=== PATIENT | male | born 1965 | race Caucasian/White ===

== ENCOUNTER 2019-07-12 13:52 | Emergency (ER) | payer OTHER, SELFPAY ==
--- NOTE | ~2019-07-12 | CT_ITS ---
EXAMINATION: CT abdomen pelvis w con EXAM DATE: 07/12/2019 15:04 INDICATION: Left-sided abdominal pain, diarrhea. TECHNIQUE: Spiral CT of the abdomen and pelvis was performed following intravenous injection of 100 m L Omnipaque 350. Axial, coronal and sagittal images were reviewed. The dose-length product (DLP) fo r this examination was 779.20 mGy-cm. The exposure was tailored according to patient size (auto mA e xposure control), and iterative reconstruction (ASIR) was used as additional dose reduction technique . Comparison is made to prior examination from 04/07/2018. FINDINGS: There is hepatic steatosis without suspicious focal lesion identified. Spleen, adrenal glan ds, pancreas are unremarkable. Gallbladder is unremarkable. No biliary obstruction. Portal and spl enic veins are patent. Kidneys enhance symmetrically. There is no hydronephrosis. There is a 2.5 mm right superior calyceal stone. The prostate is unremarkable. The bladder is unremarkable. There i s no retroperitoneal or pelvic lymphadenopathy. The appendix is normal. The stomach and small bowel are unremarkable. Small amount of colonic dheeraj nt. No free intraperitoneal gas. The heart is normal in size. There are no pericardial or pleura l effusions. The lung bases are unremarkable. There are no osteoblastic or osteolytic lesions ident ified. There is an old right 11th rib fracture posteriorly. IMPRESSION: 1. No acute intra-abdominal findings. 2. Hepatic steatosis. Reviewed, dictated and finalized at location A.
[2019-07-12 13:59] VITALS: BP 174/92; PULSE 80; RESP 18; TEMP 37; O2SAT 100
--- NOTE | 2019-07-12 14:07 | ED.ABDPAIN ---
HPI - Abdominal Pain General Chief Complaint: Abdominal Pain Stated Complaint: ABD PAIN/DIARRHEA Time Seen by Provider: 07/12/19 14:02 Source: patient and RN notes reviewed Mode of arrival: ambulatory Limitations: no limitations History of Present Illness HPI narrative: A 53 y/o male presents to the ED with worsening, 7/10, diffuse ABD pain for the past 3 days. He states that his PCP placed him on Empagliflozin 10 mg and Metformin 3 days ago and ever since he developed severe diffuse ABD pain. He reports associated nausea, diarrhea, generalized tremors, lt upper gum pain, and lt nostril pain. He denies any recent travel or sick contacts. He also denies any cough, fevers, SOB, CP, vomiting, dysuria, hematuria, or rash. MD elicited complaint: abdominal pain Pertinent past history: none Onset (ago): day(s) (3) Pain Consistency: other (worsening) Location: diffuse Pain scale (0-10): 7 Associated symptoms: nausea, diarrhea and other (generalized tremors, lt upper gum and lt nostril pain) Related Data Home Medications Medication Instructions Recorded Confirmed empagliflozin [Jardiance] mg 07/12/19 losartan 50 mg PO DAILY 07/12/19 metformin mg 07/12/19 Allergies Allergy/AdvReac Type Severity Reaction Status Date / Time atenolol Allergy Unknown tremor Verified 07/12/19 14:26 azithromycin Allergy Unknown Nausea Verified 07/12/19 14:26 cephalexin Allergy Unknown Skin Verified 07/12/19 14:26 Reaction doxycycline Allergy Unknown nausea, Verified 07/12/19 14:26 vomiting erythromycin base Allergy Unknown Unknown Verified 07/12/19 14:26 lisinopril Allergy Unknown cough Verified 07/12/19 14:26 naproxen Allergy Unknown upset Verified 07/12/19 14:26 stomach Review of Systems Review of Systems: Narrative: CONSTITUTIONAL: Denies fever. ENT: Reports lt upper gum and lt nostril pain. CARDIOVASCULAR: Denies chest pain. RESPIRATORY: Denies cough or dyspnea. GASTROINTESTINAL: Denies vomiting. Reports diffuse ABD pain, nausea, and diarrhea. GENITOURINARY: Denies dysuria or hematuria. SKIN: Denies rash. NEURO: Reports generalized tremors. All systems reviewed & are unremarkable except as noted in HPI and below PMFSH Past Medical History Medical History DM (diabetes mellitus) GERD (gastroesophageal reflux disease) H/O: HTN (hypertension) Hypercholesteremia Surgical History Surgical History Surgical history unknown Family History Family History Father Diabetes mellitus Family history of glaucoma Hypertension Grandparent Diabetes mellitus Hypertension Mother Diabetes mellitus Family history of glaucoma Cerebrovascular accident Social History Social History Smoking status: Current every day smoker Alcohol intake: never Gender identity (if verbalized by the patient): Male Exam Narrative: Exam Narrative: GENERAL: Awake, alert, conversant, slightly tremulous. HEAD: Normocephalic, atraumatic. EYES: EOMI, conjunctiva clear ENT: Nares patent. Mucous membranes moist. Vesicle in left nostril. NECK: Full range of motion CHEST: No respiratory distress, speaking in full sentences, no tachypnea HEART: Regular rate ABDOMEN: Non distended, non tender, no guarding, nonrigid EXTREMITIES: Normal range of motion. No edema. SKIN: Warm, dry, no rash. NEURO: No focal deficits. Alert and oriented x3. Course Course Emergency Course: Patient presented for shakiness, nausea, diarrhea after starting metformin and new diabetes medication. Patient is well-appearing with stable vital signs at the time of assessment. ABCs are intact and vital signs are stable. Physical exam is relatively benign. Patient is somewhat tremulous, however this does stop when speaking with him. Laboratory results are reassuring. No acute kidney injury or signs of loree
--- NOTE | 2019-07-12 14:17 | ECG_ITS ---
Measurements Intervals [place] Rate: 73 P: 40 VA: 163 QRS: 5 QRSD: 114 T: 26 QT: 365 QTc: 404 Interpretive Statements SINUS RHYTHM INTRAVENTRICULAR CONDUCTION DELAY VOLTAGE CRITERIA FOR LVH BORDERLINE ECG Electronically Signed On 07-12-2019 14:31:00 CDT by Carson Cárdenas D.O.
[2019-07-12] MEDS: ONDANSETRON INJ 4 MG/2 ML VIAL IV PUSH (14:26)
[2019-07-12] MEDS: SODIUM CHLORIDE 0.9% IV 1,000 ML 999 ML IV CONT (14:27)
--- NOTE | 2019-07-12 14:29 | PC.NURSE ---
bs 114
[2019-07-12 14:32] LABS: Glucose Point of Care 114 (65-105)
[2019-07-12 14:33] VITALS: BP 156/96; PULSE 92; RESP 21; O2SAT 97
[2019-07-12 14:40] LABS: Alveolar/Arterial O2 Gradient 3.7 mmHg; Base Excess ABG -2.8 mEq/l (+/-2.0); Carboxyhemoglobin 4.3 % THb (0-2.0); Fractional Inspired Oxygen 21 %; Methemoglobin ABG 0.3 %THb (0-1.5); Oxygen Content ABG 19.1 %vol (16.0-22.0); Oxygen Saturation ABG 97.4 % (95.0-100.0); Oxyhemoglobin 92.6 % THb (90.0-100.0); PCO2 ABG 38.8 mmHg (35.0-45.0); PO2 ABG 99.6 mmHg (80.0-100.0); PO2 FiO2 Ratio Arterial Blood 4.74 %; Reduced Hemoglobin 2.8 %THb (0-5.0); Total Hemoglobin 14.6 g/dL (12.0-18.0); pH ABG 7.372 (7.350-7.450)
[2019-07-12 14:45] LABS: Basophils Percent Auto 0.4 % (0.2-1.2); Eosinophils Percent Auto 0.5 % (0-4.4); Hematocrit 41.9 % (42.0-52.0); Immature Granulocyte Absolute 0.02 K/mm3 (0.00-0.031); Immature Granulocyte Percent A 0.3 % (0-0.5); Immature Platelet Fraction Pct 24.3 % (0.9-11.2); Lymphocytes Absolute Auto 1.59 K/mm3 (0.9-3.2); Lymphocytes Percent Auto 20.8 % (18.3-44.2); Mean Corpuscular HGB Conc 33.4 g/dl (32-36); Mean Corpuscular Hemoglobin 31.7 pg (26-34); Monocytes Absolute Auto 0.6 K/mm3 (0.1-0.6); Monocytes Percent Auto 8.1 % (2.6-8.5); Neutrophils Absolute Auto 5.4 K/mm3 (1.3-6.7); Neutrophils Percent Auto 69.9 % (45.5-73.1); Platelet Count Result 77 k/mm3 (150-375); Red Blood Count 4.41 M/mm3 (4.6-6.20); Red Cell Distribution Width 14.8 % (11.5-14.5); White Blood Count 7.7 K/mm3 (4.5-10.0)
[2019-07-12 14:47] LABS: Add Urine Microscopic? YES; Appearance Urine Clear (Clear); Bilirubin Urine Negative (Negative); Blood Urine Negative (Negative); Color Urine Yellow (Yellow); Glucose Urine UA 3+ mg/dL (Negative); Ketones Urine Negative (Negative); Leukocyte Esterase Ur Negative LEU/UL (Negative); Nitrate Urine Negative (Negative); Protein Urine Negative (Negative); RBC Urine 0-2 /hpf (0-2); Specific Grav Ur 1.023 (1.001-1.035); Urobilinogen Urine Negative mg/dL (<2.0); WBC Urine 0-3 /hpf
[2019-07-12 14:50] LABS: Device ROOM AIR; Modified Allen's Test Pass; Site Drawn RIGHT RADIAL
[2019-07-12 14:56] LABS: INR 1.1; Prothrombin Time 13.7 Seconds (11.1-14.7)
[2019-07-12 14:57] LABS: Alanine Aminotransferase 41 U/L (4-50); Albumin Level 4.4 g/dL (3.5-5.1); Alkaline Phosphatase 83 U/L (38-126); Aspartate Amino Transferase 49 U/L (17-59); Bilirubin,Total 1.6 mg/dL (0.2-1.3); Blood Urea Nitrogen 13 mg/dL (9-20); Calcium 9.3 mg/dL (8.4-10.2); Carbon Dioxide 25 mmol/L (22-30); Chloride 103 mmol/L (98-107); Estimated CRCL calculation 117 ml/min; Estimated Glomerular Filt Rate > 60; Glucose 113 mg/dL (75-110); Partial Thromboplastin Time 31.5 SECONDS (22.3-36.8); Sodium 139 mmol/L (137-145)
[2019-07-12 14:59] LABS: Estimated CRCL calculation 105 ml/min; Estimated Glomerular Filt Rate > 60
[2019-07-12 15:00] LABS: Magnesium 1.8 mg/dL (1.6-2.3)
[2019-07-12 15:01] LABS: Potassium 4.3 mmol/L (3.4-5.0)
[2019-07-12 15:02] LABS: Beta-Hydroxybutyrate/Acetoacetate 0.24 mmol/L (0.02-0.27)
[2019-07-12 15:06] LABS: Troponin I < 0.012 ng/mL (0.000-0.034)
[2019-07-12 15:52] VITALS: BP 158/101; PULSE 79; RESP 19; O2SAT 100
[2019-07-12 16:45] VITALS: BP 148/72; PULSE 78; RESP 20; O2SAT 99
== END 2019-07-12 16:48 | disposition home or self-care (01) ==
PROVIDERS: Emergency Provider Emergency Medicine
DX: B00.9 Herpesviral infection, unspecified (principal); R10.9 Unspecified abdominal pain; R11.0 Nausea; R19.7 Diarrhea, unspecified; T38.3X5A Adverse effect of insulin and oral hypoglycemic [antidiabetic] drugs, initial encounter; K21.9 Gastro-esophageal reflux disease without esophagitis; E11.9 Type 2 diabetes mellitus without complications; I10 Essential (primary) hypertension; E78.00 Pure hypercholesterolemia, unspecified; F17.200 Nicotine dependence, unspecified, uncomplicated; K76.0 Fatty (change of) liver, not elsewhere classified
CPT/HCPCS: 36415; 36600; 74177; 80053; 81001; 82010; 82375; 82805; 82948; 83050; 83735; 84100; 84484; 85025; 85055; 85610; 85730; 93005; 96361; 96374; 99284; J2405; J7030; Q9967

== ENCOUNTER 2019-08-10 06:51 | Outpatient (CLI) | payer OTHER, SELFPAY ==
--- NOTE | ~2019-08-10 | US_ITS ---
US right upper quadrant DATE: 08/10/2019 07:43 INDICATION: Elevated liver enzymes TECHNIQUE: Real-time imaging, pancreas, gallbladder areas. COMPARISON: CTA chest pulmonary/abdomen/pelvis FINDINGS: There is no evidence of gallstones, gallbladder wall thickening, abnormal pericholecystic f luid collection. Negative sonographic Devries's sign. The common bile duct measures 4.6 mm, normal. The pancreas is largely obscured by bowel gas. Normal hepatic portal venous flow direction. No hepati c space-occupying mass lesion is evident. IMPRESSION: Pancreas is obscured; otherwise unremarkable examination Reviewed, dictated and finalized at Location [facility]. Reviewed, dictated and finalized at location A.
== END 2019-08-10 06:52 | disposition home or self-care (01) ==
LOC: ANHIMG 06:55
PROVIDERS: PCP Family Medicine; Visit Provider Family Medicine
DX: R74.8 Abnormal levels of other serum enzymes (principal)
CPT/HCPCS: 76705

== ENCOUNTER 2021-04-12 07:12 | Emergency (ER) | payer OTHER, SELFPAY ==
--- NOTE | ~2021-04-12 | XR_ITS ---
EXAMINATION: XR chest 1V portable DATE: 04/12/2021 08:10 INDICATION: Cough. TECHNIQUE: A single frontal view of the chest was obtained. COMPARISON: Chest 2 views 03/24/2019, CT abdomen and pelvis 07/12/2019 FINDINGS: There is no pneumonia, pleural effusion, or pneumothorax. The heart size is normal. Calcifi ed mediastinal lymph nodes are consistent with old granulomatous disease. IMPRESSION: 1. No acute cardiopulmonary disease. Reviewed, dictated and finalized at location A. [employer]ING [employer]
[2021-04-12 07:41] VITALS: BP 137/94; PULSE 82; RESP 16; TEMP 37; O2SAT 98
--- NOTE | 2021-04-12 08:14 | ED.GENADULT ---
HPI - General Adult General Chief complaint: Unspecified Stated complaint: chills, clogged up Time Seen by Provider: 04/12/21 07:53 Source: RN notes reviewed History of Present Illness HPI narrative: Patient presents emergency department from home for not feeling well. Patient states that symptoms began approximately 3 days ago and worsened yesterday states that he has had body aches, rhinorrhea with nasal congestion, sore throat and a cough this been nonproductive. He denies any measured fevers or chills chest pain shortness of breath abdominal pain nausea or vomiting. Patient states he has had the COVID-19 vaccinations. States has been using [employer] VapoRub at home Related Data Home Medications Medication Instructions Recorded Confirmed empagliflozin [Jardiance] 10 mg PO DAILY 04/12/21 gabapentin 300 mg PO BID 04/12/21 hydrocodone-acetaminophen 1 tablet PO Q4H PRN 04/12/21 losartan 25 mg PO DAILY 04/12/21 montelukast [Singulair] 10 mg PO DAILY 04/12/21 Allergies Allergy/AdvReac Type Severity Reaction Status Date / Time atenolol Allergy Unknown tremor Verified 07/12/19 14:26 azithromycin Allergy Unknown Nausea Verified 07/12/19 14:26 cephalexin Allergy Unknown Skin Verified 07/12/19 14:26 Reaction doxycycline Allergy Unknown nausea, Verified 07/12/19 14:26 vomiting erythromycin base Allergy Unknown Unknown Verified 07/12/19 14:26 lisinopril Allergy Unknown cough Verified 07/12/19 14:26 naproxen Allergy Unknown upset Verified 07/12/19 14:26 stomach Review of Systems Review of Systems: Gen.: Denies fevers or chills ENT: See HPI Respiratory: Denies shortness of breath reports CV: Denies chest pain GI: Denies abdominal pain nausea, emesis or diarrhea Musculoskeletal: Denies back pain or muscle pain Neuro: Denies numbness, tingling, weakness or focal weakness Skin: Denies rash Except as documented, all other systems reviewed and negative [facility] Past Medical History Medical History (Updated 04/12/21 @ 09:31 by Sergei Hart DO) DM (diabetes mellitus) GERD (gastroesophageal reflux disease) H/O: HTN (hypertension) Hypercholesteremia Surgical History Surgical History Surgical history unknown Family History Family History Father Diabetes mellitus Family history of glaucoma Hypertension Grandparent Diabetes mellitus Hypertension Mother Diabetes mellitus Family history of glaucoma Cerebrovascular accident Social History Social History Smoking status: Current every day smoker Alcohol intake: never Gender identity (if verbalized by the patient): Male Exam Narrative: APPEARANCE: No acute distress, nontoxic, resting in bed EYES: EOMI HEENT: Normocephalic, atraumatic, TMs clear bilaterally bilateral turbinates boggy, mild erythema with no exudate of posterior pharynx RESPIRATORY: No respiratory distress Clear to auscultation bilaterally with no rhonchi wheezing or rales. CARDIOVASCULAR: Regular rate and rhythm without murmurs rubs or gallops. ABDOMINAL: Soft, nontender, nondistended, no rebound or guarding MUSCULOSKELETAl: Moves all extremities. No clubbing, cyanosis or edema. NEURO: Awake and alert. Following commands, speech normal, no focal deficits SKIN:: Warm, dry. No rashes lesions or abrasions PSYCHIATRIC: Normal affect/mood, Course Course Emergency Course: Discussed with patient results of workup and diagnosis. Discussed need for follow-up with primary care, proper use of medication, and reasons to return to the emergency department. Patient understands and agrees to current treatment plan. Discussed with patient Covid swab obtained and need for self-isolation until results return Vital Signs Vital signs: Vital Signs Temperature 98.6 F 04/12/21 07:41 Pulse Rate 82 04/12/21 07:41 Respiratory Rate 16
[2021-04-12] MEDS: ACETAMINOPHEN 500 MG TABLET 1000 MG PO (08:32)
[2021-04-12 16:52] LABS: SARS-CoV-2 RNA PCR Positive
== END 2021-04-12 10:35 | disposition home or self-care (01) ==
PROVIDERS: Emergency Provider Emergency Medicine; PCP Family Medicine
DX: U07.1 COVID-19 (principal); E11.9 Type 2 diabetes mellitus without complications; I10 Essential (primary) hypertension; F17.200 Nicotine dependence, unspecified, uncomplicated; Z79.891 Long term (current) use of opiate analgesic
CPT/HCPCS: 71045; 87804; 99283; A9270; C9803; U0003; U0005

== ENCOUNTER 2022-05-30 08:03 | Emergency (ER) | payer OTHER, SELFPAY ==
--- NOTE | 2022-05-30 08:05 | ED.CHESTPAIN ---
HPI - Chest Pain General Chief Complaint: Upper Respiratory Infection Stated Complaint: pain on left of chest Time Seen by Provider: 05/30/22 08:05 Source: patient Mode of arrival: ambulatory Limitations: no limitations History of Present Illness HPI narrative: Mr. Stafford is a 56-year-old male patient presenting to clinic today with complaints of mid sternal/left-sided chest pain since (2 days). He reports he feels as though his sinuses are clogged up any has had a nose bleed as well. His blood pressure is 160 over 79 in the clinic today. He denies any shortness of breath but rates his chest discomfort a 4/10 stating that the pain is sharp and constant. Pain does get worse with movement of the left arm but there is no radiation down the left arm. He denies having a cough. He is a 1 pack per day times 13 year smoker. History of high blood pressure, high cholesterol, GERD, and diabetes. No cardiac history per patient Related Data Home Medications Medication Instructions Recorded Confirmed empagliflozin 10 mg tablet 10 mg PO DAILY 04/12/21 (Jardiance) hydrocodone 5 mg-acetaminophen 325 1 tablet PO Q4H PRN Pain (Scale 04/12/21 mg tablet Score 4-6) losartan 25 mg tablet 25 mg PO DAILY 04/12/21 Allergies Allergy/AdvReac Type Severity Reaction Status Date / Time atenolol Allergy Unknown tremor Verified 07/12/19 14:26 azithromycin Allergy Unknown Nausea Verified 07/12/19 14:26 cephalexin Allergy Unknown Skin Verified 07/12/19 14:26 Reaction doxycycline Allergy Unknown nausea, Verified 07/12/19 14:26 vomiting erythromycin base Allergy Unknown Unknown Verified 07/12/19 14:26 lisinopril Allergy Unknown cough Verified 07/12/19 14:26 naproxen Allergy Unknown upset Verified 07/12/19 14:26 stomach DEZ Inhibitors Allergy Unknown Verified 05/30/22 08:36 acetaminophen Allergy Unknown Verified 05/30/22 08:36 [From Tylenol-Codeine #3] amoxicillin Allergy Unknown Verified 05/30/22 08:36 baclofen Allergy Unknown Verified 05/30/22 08:36 codeine Allergy Unknown Verified 05/30/22 08:36 [From Tylenol-Codeine #3] diclofenac Allergy Unknown Verified 05/30/22 08:36 etodolac Allergy Unknown Verified 05/30/22 08:36 gabapentin Allergy Unknown Verified 05/30/22 08:36 ibuprofen Allergy Unknown Verified 05/30/22 08:36 meloxicam Allergy Unknown Verified 05/30/22 08:36 metformin Allergy Unknown Verified 05/30/22 08:36 methylprednisolone Allergy Unknown Verified 05/30/22 08:36 metoprolol Allergy Unknown Verified 05/30/22 08:36 metronidazole Allergy Unknown Verified 05/30/22 08:36 nabumetone Allergy Unknown Verified 05/30/22 08:36 omeprazole Allergy Unknown Verified 05/30/22 08:36 prednisone Allergy Unknown Verified 05/30/22 08:36 tramadol Allergy Unknown Verified 05/30/22 08:36 Review of Systems Review of Systems: Pertinent positives per HPI. Patient denies any fever, chills, rash, headache, visual changes, dizziness, cough, runny nose, sore throat, shortness of breath,palpitations, nausea, vomiting, diarrhea, constipation, abdominal pain, or any urinary issues. PMFSH Past Medical History Medical History (Updated 05/30/22 @ 08:41 by Angel Cuellar APRN) DM (diabetes mellitus) GERD (gastroesophageal reflux disease) H/O: HTN (hypertension) Hypercholesteremia Surgical History Surgical History Surgical history unknown Family History Family History Father Diabetes mellitus Family history of glaucoma Hypertension Grandparent Diabetes mellitus Hypertension Mother Diabetes mellitus Family history of glaucoma Cerebrovascular accident Social History Social History Smoking status: Current every day smoker Alcohol intake: never Gender identity (if verbalized by the patient): Male Comments At the time of my signature, I rev
[2022-05-30 08:15] VITALS: BP 160/79; PULSE 98; RESP 18; TEMP 36.8; O2SAT 100
--- NOTE | 2022-05-30 08:16 | ECG_ITS ---
Measurements Intervals [place] Rate: 67 P: 53 OR: 172 QRS: 4 QRSD: 109 T: 31 QT: 374 QTc: 396 Interpretive Statements SINUS RHYTHM NORMAL ECG COMPARED TO ECG 07/12/2019 14:29:37 NO SIGNIFICANT CHANGES Electronically Signed On 05-30-2022 16:44:28 ANGLE SHEARER by Mike Nicole M.D.
== END 2022-05-30 08:40 | disposition short-term general hospital (02) ==
PROVIDERS: Emergency Provider Nurse Practitioner Family; PCP Family Medicine
DX: R07.9 Chest pain, unspecified (principal); E78.00 Pure hypercholesterolemia, unspecified; I10 Essential (primary) hypertension; K21.9 Gastro-esophageal reflux disease without esophagitis; E11.9 Type 2 diabetes mellitus without complications
CPT/HCPCS: 93005; 99213; G0463

== ENCOUNTER 2022-05-30 08:50 | Emergency (ER) | payer OTHER, SELFPAY ==
--- NOTE | ~2022-05-30 | XR_ITS ---
EXAMINATION: XR chest 2V 05/30/2022 09:15 INDICATION: Chest pain PROCEDURE: 2 view chest COMPARISON: Comparison to multiple prior studies sequentially, with oldest reviewed study dated 03/13. FINDINGS: The lungs are clear. The cardiomediastinal silhouette is within normal limits. There are no pleural effusions. There is no pneumothorax suspected. IMPRESSION: 1: NO ACUTE CARDIOPULMONARY DISEASE. Reviewed, dictated and finalized at location A. CHBOARD OPERATOR RECEPTIONIST
--- NOTE | ~2022-05-30 | CT_ITS ---
EXAMINATION: CT abdomen pelvis w con DATE: 05/30/2022 11:43 INDICATION: Epigastric abdominal pain. Elevated lipase. TECHNIQUE: Computed tomography (CT) of the abdomen and pelvis was performed with 100 cc Omnipaque 350 intravenous contrast. The dose-length product was 550.71 mGy-cm. Automated exposure control and iter ative reconstruction technique were employed. COMPARISON: CT dated 07/12/2019 FINDINGS: Lung bases are unremarkable. Heart size normal. No significant pleural or pericardial effus ion. No significant vascular abnormality. No lymphadenopathy. There is fatty infiltration of the liver. There is a small subcentimeter hypodensity of the left hepa tic lobe, too small to characterize, although likely benign. Gallbladder is distended. Spleen is enla rged. The adrenal glands, pancreas and left kidney are unremarkable. There is a 2 mm nonobstructing r ight renal stone. Small fat-containing umbilical hernia. No abnormal pelvic masses or fluid collectio ns. Colonic diverticulosis without evidence for diverticulitis. Normal appendix. Mild-moderate lumbar spondylosis. IMPRESSION: 1. No acute abdominal abnormality. 2: Splenomegaly. 3: Fatty infiltration of the liver. 4: Nonobstructing right nephrolithiasis. Reviewed, dictated and finalized at location A. IOLOGY TECHNICIAN
--- NOTE | 2022-05-30 08:55 | ECG_ITS ---
Measurements Intervals [place] Rate: 62 P: 52 MA: 170 QRS: 0 QRSD: 107 T: 22 QT: 371 QTc: 378 Interpretive Statements SINUS RHYTHM MINIMAL VOLTAGE CRITERIA FOR LVH, CONSIDER NORMAL VARIANT BORDERLINE ECG COMPARED TO ECG 07/12/2019 14:29:37 NO SIGNIFICANT CHANGES Electronically Signed On 05-30-2022 16:44:56 WOOL HAT FLANGER by Mike Nicole M.D.
[2022-05-30 08:56] VITALS: BP 154/80; PULSE 72; RESP 17; TEMP 36.8; O2SAT 99
--- NOTE | 2022-05-30 09:08 | ED.CHESTPAIN ---
HPI - Chest Pain General Chief Complaint: Chest Pain Stated Complaint: Chest Pain x1 week Time Seen by Provider: 05/30/22 08:58 Source: patient Mode of arrival: ambulatory Limitations: no limitations History of Present Illness HPI narrative: Patient is a 56-year-old male who presents to the ED with report of left sided chest wall pain. Patient reports having pain in his left anterior lateral chest wall/rib cage for the past 1 week. He states over the last couple days it has become worse, which prompted his presentation. He has tried taking Tylenol for the pain. Patient also reports having congestion and rhinorrhea for the past 2-1/2 weeks, denies cough, fever, chills, nausea, vomiting, abdominal pain, difficulty breathing, pain with deep breaths, lower extremity pain or swelling. Related Data Home Medications Medication Instructions Recorded Confirmed empagliflozin 10 mg tablet 10 mg PO DAILY 04/12/21 05/30/22 (Jardiance) hydrocodone 5 mg-acetaminophen 325 1 tablet PO Q4H PRN Pain (Scale 04/12/21 05/30/22 mg tablet Score 4-6) losartan 25 mg tablet 25 mg PO DAILY 04/12/21 05/30/22 Allergies Allergy/AdvReac Type Severity Reaction Status Date / Time atenolol Allergy Unknown tremor Verified 07/12/19 14:26 azithromycin Allergy Unknown Nausea Verified 07/12/19 14:26 cephalexin Allergy Unknown Skin Verified 07/12/19 14:26 Reaction doxycycline Allergy Unknown nausea, Verified 07/12/19 14:26 vomiting erythromycin base Allergy Unknown Unknown Verified 07/12/19 14:26 lisinopril Allergy Unknown cough Verified 07/12/19 14:26 naproxen Allergy Unknown upset Verified 07/12/19 14:26 stomach DEZ Inhibitors Allergy Unknown Verified 05/30/22 08:36 acetaminophen Allergy Unknown Verified 05/30/22 08:36 [From Tylenol-Codeine #3] amoxicillin Allergy Unknown Verified 05/30/22 08:36 baclofen Allergy Unknown Verified 05/30/22 08:36 codeine Allergy Unknown Verified 05/30/22 08:36 [From Tylenol-Codeine #3] diclofenac Allergy Unknown Verified 05/30/22 08:36 etodolac Allergy Unknown Verified 05/30/22 08:36 gabapentin Allergy Unknown Verified 05/30/22 08:36 ibuprofen Allergy Unknown Verified 05/30/22 08:36 meloxicam Allergy Unknown Verified 05/30/22 08:36 metformin Allergy Unknown Verified 05/30/22 08:36 methylprednisolone Allergy Unknown Verified 05/30/22 08:36 metoprolol Allergy Unknown Verified 05/30/22 08:36 metronidazole Allergy Unknown Verified 05/30/22 08:36 nabumetone Allergy Unknown Verified 05/30/22 08:36 omeprazole Allergy Unknown Verified 05/30/22 08:36 prednisone Allergy Unknown Verified 05/30/22 08:36 tramadol Allergy Unknown Verified 05/30/22 08:36 Review of Systems Review of Systems: CONSTITUTIONAL: Denies fever, chills, or sweats. ENT: See HPI. CARDIOVASCULAR: See HPI. RESPIRATORY: Denies pleuritic pain, cough, or dyspnea. GASTROINTESTINAL: Denies abdominal pain, nausea, vomiting. GENITOURINARY: Denies dysuria or hematuria. MUSCULOSKELETAL: See HPI. All systems reviewed & are unremarkable except as noted in HPI and below PMFSH Past Medical History Medical History DM (diabetes mellitus) GERD (gastroesophageal reflux disease) H/O: HTN (hypertension) Hypercholesteremia Surgical History Surgical History History of surgery on lower extremity Family History Family History Father Diabetes mellitus Family history of glaucoma Hypertension Grandparent Diabetes mellitus Hypertension Mother Diabetes mellitus Family history of glaucoma Cerebrovascular accident Social History Social History Smoking status: Current every day smoker Alcohol intake: never Gender identity (if verbalized by the patient): Male Exam Narrative: GENE
[2022-05-30 09:15] LABS: Basophils Percent Auto 0.5 % (0.2-1.2); Eosinophils Absolute Auto 0.1 K/mm3 (0-0.3); Eosinophils Percent Auto 1.3 % (0-4.4); Hematocrit 41.9 % (42.0-52.0); Hemoglobin 14.3 g/dL (14.0-18.0); Immature Granulocyte Absolute 0.01 K/mm3 (0.00-0.031); Immature Granulocyte Percent A 0.2 % (0-0.5); Lymphocytes Absolute Auto 1.39 K/mm3 (0.9-3.2); Lymphocytes Percent Auto 25.4 % (18.3-44.2); Mean Corpuscular HGB Conc 34.1 g/dl (32-36); Mean Corpuscular Hemoglobin 33.3 pg (26-34); Mean Corpuscular Volume 97.7 fl (80-100); Mean Platelet Volume 13.6 fl (7.4-10.4); Monocytes Absolute Auto 0.5 K/mm3 (0.1-0.6); Monocytes Percent Auto 9.3 % (2.6-8.5); Neutrophils Absolute Auto 3.5 K/mm3 (1.3-6.7); Neutrophils Percent Auto 63.3 % (45.5-73.1); Platelet Count Result 83 k/mm3 (150-375); Red Blood Count 4.29 M/mm3 (4.6-6.20); Red Cell Distribution Width 16.5 % (11.5-14.5); White Blood Count 5.5 K/mm3 (4.5-10.0)
[2022-05-30 09:25] LABS: Alanine Aminotransferase 49 U/L (6-50); Albumin Level 4.9 g/dL (3.5-5.1); Alkaline Phosphatase 57 U/L (38-126); Anion Gap 6 mmol/L (8-16); Aspartate Amino Transferase 48 U/L (17-59); Bilirubin,Total 1.6 mg/dL (0.2-1.3); Blood Urea Nitrogen 13 mg/dL (9-20); Calcium 9.6 mg/dL (8.4-10.2); Carbon Dioxide 28 mmol/L (22-30); Chloride 102 mmol/L (98-107); Estimated CRCL calculation 113 ml/min; Estimated Glomerular Filt Rate > 60; Glucose 108 mg/dL (65-110); Lipase 403 U/L (23-300); Potassium 3.6 mmol/L (3.4-5.0); Sodium 136 mmol/L (137-145)
[2022-05-30 09:27] LABS: INR 1.1; Prothrombin Time 13.6 Seconds (11.1-14.7)
[2022-05-30 09:28] LABS: Partial Thromboplastin Time 30.7 SECONDS (22.3-36.8)
[2022-05-30 09:29] VITALS: O2SAT 99
[2022-05-30 09:35] LABS: Troponin I < 0.012 ng/mL (0.000-0.034)
[2022-05-30 10:18] LABS: Appearance Urine Clear (Clear); Bilirubin Urine Negative (Negative); Blood Urine Negative (Negative); Color Urine Yellow (Yellow); Glucose Urine UA 2+ mg/dL (Negative); Ketones Urine Negative (Negative); Leukocyte Esterase Ur Negative LEU/UL (Negative); Nitrate Urine Negative (Negative); Protein Urine Negative (Negative); Urobilinogen Urine 0.2 mg/dL (<2.0); pH Urine 5.5 (5.0-9.0)
[2022-05-30 10:25] LABS: WBC Urine 0-3 /hpf
[2022-05-30 10:26] LABS: Add Urine Microscopic? YES
[2022-05-30 10:39] LABS: Influenza A QL RT-PCR Negative (Negative); Influenza B QL RT-PCR Negative (Negative); SARS-CoV-2 RNA PCR Negative
[2022-05-30 12:32] VITALS: BP 135/83; PULSE 68; RESP 18; TEMP 36.4; O2SAT 98
== END 2022-05-30 12:47 | disposition home or self-care (01) ==
PROVIDERS: Emergency Medicine; Emergency Provider Physician Assistant; PCP Family Medicine
DX: R07.89 Other chest pain (principal); Z20.822 Contact with and (suspected) exposure to COVID-19; E11.9 Type 2 diabetes mellitus without complications; I10 Essential (primary) hypertension; E78.00 Pure hypercholesterolemia, unspecified; K21.9 Gastro-esophageal reflux disease without esophagitis; F17.200 Nicotine dependence, unspecified, uncomplicated; Z79.84 Long term (current) use of oral hypoglycemic drugs; R16.1 Splenomegaly, not elsewhere classified; N20.0 Calculus of kidney; R94.31 Abnormal electrocardiogram [ECG] [EKG]
CPT/HCPCS: 36415; 71046; 74177; 80053; 81001; 83690; 84484; 85025; 85055; 85610; 85730; 87636; 93005; 99284; Q9967

== ENCOUNTER 2022-10-11 17:09 | Emergency (ER) | payer OTHER, SELFPAY ==
--- NOTE | ~2022-10-11 | XR_ITS ---
EXAMINATION: XR chest 2V DATE: 10/11/2022 17:52 INDICATION: Cough TECHNIQUE: PA and lateral views of the chest were obtained. COMPARISON: Chest radiograph dated 05/30/2022 FINDINGS: The lungs remain clear with no focal airspace opacities, pulmonary edema, pleural effusion or pneumot horax. The cardiomediastinal silhouette is normal. Mild thoracic spondylosis. IMPRESSION: 1. No acute cardiopulmonary disease. Reviewed, dictated and finalized at location A.
--- NOTE | 2022-10-11 17:18 | ED.BACK ---
HPI - Back Pain/Injury General Chief Complaint: Upper Respiratory Infection Stated Complaint: L SIDE/BACK PAIN Time Seen by Provider: 10/11/22 17:30 Source: patient, RN notes reviewed and old records reviewed Mode of arrival: ambulatory Limitations: no limitations History of Present Illness HPI Narrative: 56 year old male presents to express care with complaints of pain below his shoulder blade on the left side radiating down into his hip which has been going on since last Wednesday. Patient reports that he has had cough with stuffy runny nose with no known fever. Patient reports that he can't tolerate laying on his left side due to his discomfort. Patient reports that he has not taken his pain medication since afraid it would mess up something. Patient reports that his physician called in some antibiotic( Bactrim) and he looked up the medicine in his pill book and he has blood problems and he was afraid to take medication. Patient did not call his physician's office to discuss these concerns. Patient does have history of cervical and spinal stenosis and has Factor 5. MD elicited complaint: other (pain from left scapula to left hip) Onset (ago): week(s) (1) Pain scale (0-10): 8 Treatments prior to arrival: other (Tylenol) Work related injury: No Related Data Home Medications Medication Instructions Recorded Confirmed empagliflozin 10 mg tablet 10 mg PO DAILY 04/12/21 10/11/22 (Jardiance) losartan 25 mg tablet 25 mg PO DAILY 04/12/21 10/11/22 Allergies Allergy/AdvReac Type Severity Reaction Status Date / Time atenolol Allergy Unknown tremor Verified 10/11/22 17:21 azithromycin Allergy Unknown Nausea Verified 10/11/22 17:21 cephalexin Allergy Unknown Skin Verified 10/11/22 17:21 Reaction doxycycline Allergy Unknown nausea, Verified 10/11/22 17:21 vomiting erythromycin base Allergy Unknown Unknown Verified 10/11/22 17:21 lisinopril Allergy Unknown cough Verified 10/11/22 17:21 naproxen Allergy Unknown upset Verified 10/11/22 17:21 stomach DEZ Inhibitors Allergy Unknown Verified 10/11/22 17:21 acetaminophen Allergy Unknown Verified 10/11/22 17:21 [From Tylenol-Codeine #3] amoxicillin Allergy Unknown Verified 10/11/22 17:21 baclofen Allergy Unknown Verified 07/02/23 17:21 codeine Allergy Unknown Verified 10/11/22 17:21 [From Tylenol-Codeine #3] diclofenac Allergy Unknown Verified 10/11/22 17:21 etodolac Allergy Unknown Verified 10/11/22 17:21 gabapentin Allergy Unknown Verified 10/11/22 17:21 ibuprofen Allergy Unknown Verified 10/11/22 17:21 meloxicam Allergy Unknown Verified 10/11/22 17:21 metformin Allergy Unknown Verified 10/11/22 17:21 methylprednisolone Allergy Unknown Verified 10/11/22 17:21 metoprolol Allergy Unknown Verified 10/11/22 17:21 metronidazole Allergy Unknown Verified 10/11/22 17:21 nabumetone Allergy Unknown Verified 10/11/22 17:21 omeprazole Allergy Unknown Verified 10/11/22 17:21 prednisone Allergy Unknown Verified 10/11/22 17:21 tramadol Allergy Unknown Verified 10/11/22 17:21 Review of Systems Review of Systems: CONSTITUTIONAL: Denies known fever, chills, or sweats. EYES: Denies visual changes, redness, or discharge. ENT: Denies rhinorrhea feels stuffiness in sinus, congestion, no sore throat, or otalgia. CARDIOVASCULAR: Denies chest pain, palpitations, or edema. RESPIRATORY: positive for cough denies dyspnea. GASTROINTESTINAL: Denies abdominal pain, nausea, vomiting, or diarrhea. GENITOURINARY: Denies dysuria or hematuria no testicular pain or hematuria SKIN: Denies rash or itching. MUSCULOSKELETAL: Pain from left scapula to his left hip area, or myalgia. NEUROLOGIC: Denies headache, numbness, or weakness. PSYCHIATRIC: Denies anxiety or depression. All systems reviewed & are unremarkable except as noted in HPI and below PMFSH Past Medical History Medical History DM (diabetes mellitus) Factor 5 Lei
[2022-10-11 17:22] VITALS: BP 139/99; PULSE 79; RESP 16; TEMP 36.3; O2SAT 100
== END 2022-10-11 18:29 | disposition home or self-care (01) ==
PROVIDERS: Emergency Provider Registered Nurse; PCP Family Medicine
DX: J06.9 Acute upper respiratory infection, unspecified (principal); M54.6 Pain in thoracic spine; M54.32 Sciatica, left side; E11.9 Type 2 diabetes mellitus without complications; D68.51 Activated protein C resistance; I10 Essential (primary) hypertension; K21.9 Gastro-esophageal reflux disease without esophagitis; K75.81 Nonalcoholic steatohepatitis (NASH); E78.00 Pure hypercholesterolemia, unspecified; F17.200 Nicotine dependence, unspecified, uncomplicated
CPT/HCPCS: 71046; 81003; 87086; 99213; G0463

== ENCOUNTER 2023-05-27 21:51 | Emergency (ER) | payer OTHER, SELFPAY ==
--- NOTE | ~2023-05-27 | CT_ITS ---
EXAMINATION: CT brain wo con DATE: 05/27/2023 22:20 INDICATION: Head trauma TECHNIQUE: Computed tomography (CT) of the head was performed without intravenous contrast. Sagittal and coronal reconstructions were performed. The mA was adjusted according to patient size. Iterative reconstruction technique was employed. The dose-length product was 681.00 mGy-cm. COMPARISON: None FINDINGS: No fracture. No acute intracranial hemorrhage, acute infarction or abnormal extra axial fluid collect ion. Ventricles are normal and symmetric. No mass/mass effect. The orbits, paranasal sinuses and mast oid air cells are normal. IMPRESSION: 1. Normal head CT. No fracture or acute intracranial process. Reviewed, dictated and finalized at location A. OR [employer]
[2023-05-27 21:54] VITALS: BP 158/78; PULSE 69; RESP 16; TEMP 36.5; O2SAT 100
[2023-05-27 23:16] VITALS: BP 142/81; PULSE 61; RESP 15; TEMP 36.6; O2SAT 100
[2023-05-27 23:17] VITALS: O2SAT 100
--- NOTE | 2023-05-27 23:51 | ED.GENADULT ---
HPI - General Adult General Chief complaint: Head Injury Stated complaint: feng handle hit in side of head Time Seen by Provider: 05/27/23 23:19 Source: patient Mode of arrival: ambulatory Limitations: no limitations History of Present Illness HPI narrative: This is a 57-year-old male who presents to the ED with chief complaint of head injury that occurred around 2130 this evening. Patient reports he was vacuuming under his work bench when the handle to his Feng fell and hit him in the head. Reports direct injury to the right parietal area. Denies LOC, nausea, vomiting, numbness, weakness. Denies any further site of injury Related Data Allergies Allergy/AdvReac Type Severity Reaction Status Date / Time atenolol Allergy Unknown tremor Verified 02/05/23 14:50 azithromycin Allergy Unknown Nausea Verified 02/05/23 14:50 cephalexin Allergy Unknown Skin Verified 02/05/23 14:50 Reaction doxycycline Allergy Unknown nausea, Verified 02/05/23 14:50 vomiting erythromycin base Allergy Unknown Unknown Verified 02/05/23 14:50 lisinopril Allergy Unknown cough Verified 02/05/23 14:50 naproxen Allergy Unknown upset Verified 02/05/23 14:50 stomach DEZ Inhibitors Allergy Unknown Verified 02/05/23 14:50 acetaminophen Allergy Unknown Verified 02/05/23 14:50 [From Tylenol-Codeine #3] amoxicillin Allergy Unknown Verified 02/05/23 14:50 baclofen Allergy Unknown Verified 02/05/23 14:50 codeine Allergy Unknown Verified 02/05/23 14:50 [From Tylenol-Codeine #3] diclofenac Allergy Unknown Verified 02/05/23 14:50 etodolac Allergy Unknown Verified 02/05/23 14:50 gabapentin Allergy Unknown Verified 02/05/23 14:50 ibuprofen Allergy Unknown Verified 02/05/23 14:50 meloxicam Allergy Unknown Verified 02/05/23 14:50 metformin Allergy Unknown Verified 02/05/23 14:50 methylprednisolone Allergy Unknown Verified 02/05/23 14:50 metoprolol Allergy Unknown Verified 02/05/23 14:50 metronidazole Allergy Unknown Verified 02/05/23 14:50 nabumetone Allergy Unknown Verified 02/05/23 14:50 omeprazole Allergy Unknown Verified 02/05/23 14:50 prednisone Allergy Unknown Verified 02/05/23 14:50 tramadol Allergy Unknown Verified 02/05/23 14:50 semaglutide [From [facility]] AdvReac Severe Abdominal Verified 02/05/23 14:50 Pain Prednisone Allergy Intermediate Itching Uncoded 02/05/23 14:50 Review of Systems Review of Systems: All systems as dictated in [facility] Past Medical History Medical History DM (diabetes mellitus) Factor 5 Leiden mutation, heterozygous GERD (gastroesophageal reflux disease) H/O: HTN (hypertension) Hypercholesteremia Nonalcoholic steatohepatitis (TILLMAN) Surgical History Surgical History History of surgery on lower extremity Family History Family History Father Diabetes mellitus Family history of glaucoma Hypertension Grandparent Diabetes mellitus Hypertension Mother Diabetes mellitus Family history of glaucoma Cerebrovascular accident Social History Social History Smoking status: Current every day smoker Alcohol intake: never Lack of Transportation: No Lack of Food: Never True Current Housing: I Have Housing Concerned About Future Housing: No Difficulty Paying Gas/Electric Bills: No Difficulty Paying for Meds: No Currently Unemployed: No Education: High School Diploma/GED Difficulty w/ Childcare or Family Care: No Gender identity (if verbalized by the patient): Male Exam Narrative: GENERAL: Well-appearing, well-nourished, and in no acute distress. HEAD: Normocephalic, atraumatic. EYES: PERRLA and EOMI. ENT: Nares clear, no rhinorrhea or epistaxis. Mucous membranes moist. Oropharynx without tonsillar hypertrophy exudate or other lesions. NECK:
== END 2023-05-28 00:15 | disposition home or self-care (01) ==
PROVIDERS: Emergency Provider Physician Assistant; PCP Family Medicine
DX: S09.90XA Unspecified injury of head, initial encounter (principal); E11.9 Type 2 diabetes mellitus without complications; D68.51 Activated protein C resistance; E78.00 Pure hypercholesterolemia, unspecified; K75.81 Nonalcoholic steatohepatitis (NASH); K21.9 Gastro-esophageal reflux disease without esophagitis; F17.200 Nicotine dependence, unspecified, uncomplicated; Z79.84 Long term (current) use of oral hypoglycemic drugs; Y93.E3 Activity, vacuuming; W20.8XXA Other cause of strike by thrown, projected or falling object, initial encounter
CPT/HCPCS: 70450; 99284

== ENCOUNTER 2023-08-11 12:43 | Emergency (ER) | payer OTHER, SELFPAY ==
--- NOTE | ~2023-08-11 | XR_ITS ---
EXAMINATION: [id number] DATE: 08/11/2023 13:24 INDICATION: Right chest pain. Cough. TECHNIQUE: A frontal view of the chest and 2 views on 3 radiographs of the right ribs were obtained. COMPARISON: None. FINDINGS: There is no pneumonia, pleural effusion, or pneumothorax. The heart size is normal. IMPRESSION: 1. No rib fracture. Reviewed, dictated and finalized at location A. IMPRESSION: 1. No rib fracture.
[2023-08-11 12:48] VITALS: BP 150/85; PULSE 72; RESP 16; TEMP 36.4; O2SAT 100
--- NOTE | 2023-08-11 13:13 | ED.URI ---
HPI - URI/Sore Throat General Chief Complaint: Upper Respiratory Infection Stated Complaint: R RIB PAIN Time Seen by Provider: 08/11/23 13:03 Source: patient and RN notes reviewed Mode of arrival: ambulatory Limitations: no limitations History of Present Illness HPI Narrative: Patient presents today with a one-week history of right rib pain that is worse with deep breath and coughing, nasal congestion, slight cough. Denies shortness of breath, fever, or any additional symptoms. Patient states that approximately 11 days ago he took 4 doses of amoxicillin, left over from a previous prescription. States it did slightly improve his symptoms, but gave him diarrhea. Related Data Allergies Allergy/AdvReac Type Severity Reaction Status Date / Time atenolol Allergy Unknown tremor Verified 08/11/23 12:59 azithromycin Allergy Unknown Nausea Verified 08/11/23 12:59 cephalexin Allergy Unknown Skin Verified 08/11/23 12:59 Reaction doxycycline Allergy Unknown nausea, Verified 08/11/23 12:59 vomiting erythromycin base Allergy Unknown Unknown Verified 08/11/23 12:59 lisinopril Allergy Unknown cough Verified 08/11/23 12:59 naproxen Allergy Unknown upset Verified 08/11/23 12:59 stomach DEZ Inhibitors Allergy Unknown Verified 08/11/23 12:59 acetaminophen Allergy Unknown Verified 08/11/23 12:59 [From Tylenol-Codeine #3] amoxicillin Allergy Unknown Verified 08/11/23 12:59 baclofen Allergy Unknown Verified 08/11/23 12:59 codeine Allergy Unknown Verified 08/11/23 12:59 [From Tylenol-Codeine #3] diclofenac Allergy Unknown Verified 08/11/23 12:59 etodolac Allergy Unknown Verified 08/11/23 12:59 gabapentin Allergy Unknown Verified 08/11/23 12:59 ibuprofen Allergy Unknown Verified 08/11/23 12:59 meloxicam Allergy Unknown Verified 08/11/23 12:59 metformin Allergy Unknown Verified 08/11/23 12:59 methylprednisolone Allergy Unknown Verified 08/11/23 12:59 metoprolol Allergy Unknown Verified 08/11/23 12:59 metronidazole Allergy Unknown Verified 08/11/23 12:59 nabumetone Allergy Unknown Verified 08/11/23 12:59 omeprazole Allergy Unknown Verified 08/11/23 12:59 prednisone Allergy Unknown Verified 08/11/23 12:59 tramadol Allergy Unknown Verified 08/11/23 12:59 [facility]ide [[facility] AdvReac Severe Abdominal Verified 08/11/23 12:59 Pain Prednisone Allergy Intermediate Itching Uncoded 08/11/23 12:59 Review of Systems Review of Systems: CONSTITUTIONAL: Denies body aches, fever, chills, or sweats. EYES: Denies visual changes, redness, or discharge. ENT: Denies rhinorrhea, sore throat, or otalgia.+ congestion CARDIOVASCULAR: Denies chest pain, palpitations, or edema. RESPIRATORY: Denies dyspnea.+ cough, rib pain GASTROINTESTINAL: Denies abdominal pain, nausea, vomiting, or diarrhea. GENITOURINARY: Denies dysuria or hematuria. SKIN: Denies rash, itching, or wounds. MUSCULOSKELETAL: Denies back pain, joint pain, or myalgia. NEUROLOGIC: Denies headache, numbness, tingling, or weakness. PSYCH: Denies depression or anxiety. [facility] Past Medical History Medical History DM (diabetes mellitus) Factor 5 Leiden mutation, heterozygous GERD (gastroesophageal reflux disease) H/O: HTN (hypertension) Hypercholesteremia Nonalcoholic steatohepatitis (TILLMAN) Surgical History Surgical History History of surgery on lower extremity Family History Family History Father Diabetes mellitus Family history of glaucoma Hypertension Grandparent Diabetes mellitus Hypertension Mother Diabetes mellitus Family history of glaucoma Cerebrovascular accident Social History Social History Smoking status: Current every day smoker Alcohol intake: never Lack of Transportation: No [place]
== END 2023-08-11 13:56 | disposition home or self-care (01) ==
PROVIDERS: Emergency Provider Nurse Practitioner; PCP Family Medicine
DX: R09.81 Nasal congestion (principal); S29.011A Strain of muscle and tendon of front wall of thorax, initial encounter; X58.XXXA Exposure to other specified factors, initial encounter; E11.9 Type 2 diabetes mellitus without complications; D68.51 Activated protein C resistance; K21.9 Gastro-esophageal reflux disease without esophagitis; I10 Essential (primary) hypertension; E78.00 Pure hypercholesterolemia, unspecified; K75.81 Nonalcoholic steatohepatitis (NASH); F17.200 Nicotine dependence, unspecified, uncomplicated
CPT/HCPCS: 71101; 99213; G0463

== ENCOUNTER 2023-11-25 07:23 | Outpatient (CLI) | payer OTHER, SELFPAY ==
--- NOTE | ~2023-11-25 | US_ITS ---
US abdomen complete EXAMINATION: US Abdomen Complete INDICATION: Right upper quadrant pain PROCEDURE: Realtime High Resolution abdomen ultrasound. COMPARISON: No prior studies for comparison FINDINGS: Gallbladder wall appears to be mildly thickened focally measuring 4 mm. No gallstones. Ther e is gallbladder sludge. Common bile duct measures 3 mm. Liver echotexture is increased, consistent with fatty infiltration.. Pancreas within normal limits. Pancreatic tail is obscured by bowel gas. Spleen is enlarged measuring 15.4 cm. Renal echotexture i s within normal limits bilaterally without hydronephrosis, contour deforming mass or renal stone. Rig ht kidney measures 11 cm. Left kidney measures 12.1 cm. Visualized aspects of the aorta and IVC are within normal limits. Portal vein is dilated measuring 15 .6 mm, consistent with portal hypertension. No sonographic Devries's sign indicated by the technologis t. IMPRESSION: 1: Fatty infiltration of the liver. 2: Dilated portal vein measuring 15.6 mm, compatible with portal hypertension. 3: Gallbladder wall thickening focally with gallbladder sludge. Consider acalculous cholecystitis in the appropriate clinical setting. 4: Splenomegaly. Reviewed, dictated and finalized at location B. IMPRESSION: 1: Fatty infiltration of the liver. 2: Dilated portal vein measuring 15.6 mm, compatible with portal hypertension. 3: Gallbladder wall thickening focally with gallbladder sludge. Consider acalcu lous cholecystitis in the appropriate clinical setting. 4: Splenomegaly.
== END 2023-11-25 07:24 | disposition home or self-care (01) ==
PROVIDERS: PCP Family Medicine; Visit Provider Nurse Practitioner Family
DX: R10.11 Right upper quadrant pain (principal); K76.0 Fatty (change of) liver, not elsewhere classified; R16.1 Splenomegaly, not elsewhere classified
CPT/HCPCS: 76700

== ENCOUNTER 2024-02-11 07:00 | Outpatient (CLI) | payer OTHER, SELFPAY ==
[2024-02-11 07:44] LABS: Alanine Aminotransferase 41 U/L (6-50); Albumin Level 4.7 g/dL (3.5-5.1); Alkaline Phosphatase 42 U/L (38-126); Anion Gap 9 mmol/L (4-12); Aspartate Amino Transferase 44 U/L (17-59); Bilirubin,Total 2.5 mg/dL (0.2-1.3); Blood Urea Nitrogen 10 mg/dL (9-20); Calcium 9.7 mg/dL (8.4-10.2); Carbon Dioxide 30 mmol/L (22-30); Chloride 101 mmol/L (98-107); Cholesterol 118 mg/dL (0-200); Estimated Glomerular Filt Rate > 60; Glucose 110 mg/dL (65-110); HDL Direct 83 mg/dL; Potassium 4.4 mmol/L (3.4-5.0); Sodium 140 mmol/L (137-145); Triglycerides < 30 mg/dL (<150)
[2024-02-11 08:04] LABS: LDL Cholesterol Direct < 30 mg/dL
[2024-02-11 09:06] LABS: Hepatitis B Surface Antigen Negative (Negative)
[2024-02-11 09:11] LABS: HAV RESULT Negative (Negative); Hepatitis B Core IgM Result Negative (Negative)
[2024-02-11 09:15] LABS: Creatinine Urine 64.9 mg/dL
[2024-02-11 09:23] LABS: Hepatitis C Virus Antibody Negative (Negative)
[2024-02-11 09:26] LABS: MALB Creatinine Ratio < 9.2 mg/g (0-30); Microalbumin Urine Random < 6.0 mg/L (0-16.7)
[2024-02-11 09:40] LABS: Hemoglobin A1C 5.4 % (<5.7)
== END 2024-02-11 07:01 | disposition home or self-care (01) ==
LOC: ANHLAB 07:01
PROVIDERS: PCP Family Medicine; Visit Provider Nurse Practitioner Family
DX: E11.9 Type 2 diabetes mellitus without complications (principal); E78.5 Hyperlipidemia, unspecified; K75.81 Nonalcoholic steatohepatitis (NASH); E78.00 Pure hypercholesterolemia, unspecified
CPT/HCPCS: 36415; 80053; 80061; 80074; 82043; 83036

== ENCOUNTER 2024-05-08 12:51 | Outpatient (CLI) | payer OTHER, SELFPAY ==
--- NOTE | ~2024-05-08 | XR_ITS ---
Left Knee Technique: AP, lateral, and sunrise views were obtained. Clinical History: Pain Findings: No fracture or dislocation is seen. Osseous alignment is anatomic. Joint spaces are preserv ed without degenerative or erosive change. Soft tissues are unremarkable. No joint effusion is seen. Impression: Unremarkable left knee radiographs. Reviewed, dictated and finalized at location . RTISING SALES ASSOCIATE Impression: Unremarkable left knee radiographs.
--- OUTSIDE RECORDS SUMMARY | 2024-05-08 13:26 | XMS_ITS | Clinical Summary ---
Author Organization [facility] Address [address] [place] [address]. [place] [address] [place] [address] Care Team Providers Care Patient Relations Director Name Role Phone Alonzo Awan MD Unavailable Allergies No known active allergies Medications fluticasone propionate 50 MCG/ACT nasal spray 2 sprays by Nasal route daily. 5 12/17/2016 Active losartan 25 MG tablet Take 25 mg by mouth daily. 11 12/17/2016 Active hydrocodone-acet aminophen 5-325 MG tablet Take 1 tablet by mouth every 6 (six) hours as needed. 0 12/23/2016 Active Active Problems Problem Noted Date Diagnosed Date Superficial foreign body (sp linter) of right hip, thigh, leg, and ankle, without major open wound 01/15/2017 Leg pain, anterior, right 01/13/2017 Family History Relation Status Comments Father Alive Social History Tobacco Use Types Packs/Day Years Used Date Smoking Tobacco: Unknown Smokeless Tobacco: Never Alcohol Use Standard Drinks/Week Comments No 0 (1 standard drink = 0.6 oz pur e alcohol) Sex and Gender Information Value Date Recorded Sex Assigned at Not on file Legal Sex Male 12:57 PM CDT Gender Identity Not on file Sexual Orientation Not on file Occupation Industry Job Start Date Job End Date Not on file Not on file Not on file Not on file Last Filed Vital Signs Vital Sign Reading Time Taken Comments Blood Pressure 137/88 01/20/2017 8:32 AM CDT Pulse 87 01/20/2017 8:32 AM CDT Temperature - - Respiratory Rate - - Oxygen Saturation - - Inhaled Oxygen Concentration - - Weight 106.6 kg (235 lb) 01/20/2017 8:32 AM CDT Height 193 cm (6' 4 ) 01/20/2017 8:32 AM CDT Body Mass Index 28.61 01/20/2017 8:32 AM CDT Plan of Treatment Health Maintenance Due Date Last Done Comments Colorectal Cancer Screening Colonoscopy (10 Years) 1965 Annual Physical 12/28/1970 Hepatitis C 12/28/1985 DTaP, Tdap and Td Vaccines ( 1 - Tdap) 12/28/1986 Hepatitis B Vaccines (1 of 3 - 19+ 3-dose series) 12/28/1986 Zoster Vaccines (1 of 2) 12/28/2017 COVID-19 Vaccine (1 - 2023-2 5 season) 2023 Influenza Adult (#1) 2024 Meningococcal B Vaccine Aged Out No l onger eligible based on patient's age to complete this topic Meningococcal Vaccine Aged Out No yaneli millie eligible based on patient's age to complete this topic Pneumococcal Vaccine: Pediat rics (0 to 5 Years) and At-Risk Patients (6 to 64 Years) Aged Out No longer eligible b ased on patient's age to complete this topic RSV Immunizations Under 20 Months Aged Out No longer eligible based on patient's age to [place] [address] Care Teams Patient Relations Director Relationship Specialty Start Date End Date Alonzo Awan MD [address] [address] [employer] VASCULAR SURGERY 11/10/16
--- OUTSIDE RECORDS SUMMARY | 2024-05-08 13:26 | XMS_ITS | Patient Health Summary ---
Author Organization [facility] Address [address] [place] [address] Care Team Providers Care Publications Writer Name Role Phone Girish Freeman Primary Care Provider Unavailab le Note from [facility] [place][note 2],non-owned Affiliates and Associated Physician Practices is amultiple site organization consisting of ambulatory clinics and hospital sitesin [place], [place], [place] and [place]. This disclosure is being madepursuant to the Care Everywhere program and may not contain all information available regarding this patient. Last updated 17.[facility] Social History Tobacco Use Types Packs/Day Years Used Date Smoking Tobacco: Never Assessed Sex and Gender Information Value Date Recorded Sex Assigned at Not on file Gender Identity Not on file Sexual Orientation Not on file Care Teams Publications Writer Relationship Specialty Start Date End Date Girish Freeman Update Information PCP - General 05/11/20
--- OUTSIDE RECORDS SUMMARY | 2024-05-08 13:27 | XMS_ITS | Referral Summary ---
Author Organization [facility] Address [address] [place] [address] Care Team Providers Care Data Developer Name Role Phone Girish Freeman Primary Care Provider Unavailab le Source Comments [facility] Affiliates and Associated Physician Practices is amultiple site organization consisting of ambulatory clinics and hospital sitesin [place], [place], [place] and [place]. This disclosure is being madepursuant to the Care Everywhere program and may not contain all information available regarding this patient. Last updated 17.[facility] Social History Tobacco Use Types Packs/Day Years Used Date Smoking Tobacco: Never Assessed Sex and Gender Information Value Date Recorded Sex Assigned at Not on file Gender Identity Not on file Sexual Orientation Not on file Plan of Treatment Not on file Care Teams Data Developer Relationship Specialty Start Date End Date Girish Freeman Update Information PCP - General 05/11/20
--- OUTSIDE RECORDS SUMMARY | 2024-05-08 13:27 | XMS_ITS ---
Care Plan - [facility] Created on: May 08, 2024 SRINIVASA COLLINS : 1965 Sex: Male Author Organization [facility] Address [address] [place] [address] Phone Care Team Providers Care Senior Customer Service Representative Name Role Phone Unavailable Unavailable Unavailable
--- OUTSIDE RECORDS SUMMARY | 2024-05-08 13:27 | XMS_ITS | Referral Summary ---
Author Organization [facility] Address [address] [place] [id number] Care Team Providers Care Program Services Assistant Name Role Phone Girish Freeman MD Unavailable [phone] Franky Pritchard MD Unavailable [phone] Franky Pritchard MD Unavailable [phone] Arie Rodrgiues MD Primary Care Provider [phone] Encounters Date Type Department Care Team Description 03/16/2024 11:00 AM FIRE SAFETY DIRECTOR Lab [facility] Building [address] [address] 02/14/[address] [facility] Gastroenterology at [place] [id number] [facility] [address] [place] [address] [phone] MD 02/12/2024 9:57 AM CDT - 02/12/2024 12:25 PM CDT Emergency [facility] [address] [place] [address] Nausea and vomiting, unspecified vomiting type (Primary Dx); Abdominal cramping Discharge Disposition: Discharge to home or self care 02/09/2024 Telephone [facility] Oncology [address] [facility] [address] [place] [address] Tracy Larios CLT from Last 3 Months Allergies Active Allergy Reactions Criticality Noted Date Comments Kyler Inhibitors Cough High 03/15/2020 Amoxicillin Itching Low 04/01/2021 Baclofen Other (See comments) High 04/01/2021 Patient reports nightmares, joint pain, constipation, dizziness and shocking sensation throughout the body Covid-19 Vacc,Mrna(Moderna)-Pf Other (See comments) Medium 04/01/2021 Patient reports with first injection he had light head ache, joint pain, muscle pain, tiredness and right leg shocking feeling up to scrotum. Patient reports with second injection he had chest, neck, lower back and left hip pain, scrotum pain. Diclofenac Other (See comments) High 04/01/2021 Patient reports chest pains and stomach pains Etodolac Other (See comments) High 04/01/2021 Patient reports increased blood sugar, chest pain and abdominal pain Gabapentin Other (See comments) Medium 04/01/2021 Patient reports it makes him very angry. Ibuprofen Other (See comments),Headach e Low 04/01/2021 Patient reports abdominal pain and headache if taking for a long time Meloxicam Other (See comments) High 08/05/2020 Patient reports Increased blood sugars and chest pains Metformin Diarrhea High 03/15/2020 Patient reports muscle spasms, dizziness and joint pain Methylprednisolone Other (See comments) High 04/01/2021 Patient reports chest pain Metoprolol Headache Medium 03/15/2020 Metronidazole Other (See comments) Low 04/01/2021 Patient reports dizziness, upset stomach and constipation. Nabumetone Other (See comments) High 12/12/2020 Patient reports Sharp stabbing pain in chest, back pain, dizziness and weakness Omeprazole Other (See comments) Low 04/01/2021 Patient reports increased thirst, dry mouth, and constipation Prednisone Other (See comments) High 04/01/2021 Patient reports increased blood sugars, chest pains Tramadol Other (See comments) High 04/01/2021 Patient reports abdominal pain and shocks through the body Acetaminophen-Codeine Other (See comments) High 04/01/2021 Patient reports stomach pain, constipation and withdrawal like symptoms Medications predniSONE (DELTASONE) 10 mg tablet TAKE 4 TABLETS WITH FOOD ON DAYS 1 AND 2, THEN 2 TABS ON DAYS 3 AND 4, 1 TAB ON DAYS 5,6, AND 7. 02/21/20 20 Active olopatadine (PATANOL) 0.1 % ophthalmic solution olopatadine 0.1 % eye drops INSTILL 1 DROP INTO AFFECTED EYE(S) BY OPHTHALMIC ROUTE 2 TIMES PER DAY NEEDED. Active nicotine (NICODERM CQ) 7 mg 03/13/20 20 Active mupirocin (BACTROBAN) 2 % ointment APPLY TO AFFECTED AREA TWICE A DAY 02/21/20 20 Active losartan (COZAAR) 25 mg tablet 03/10/20 20 Active OneTouch Delica Plus Lancet 33 gauge misc USE TO TEST 1 2 TIMES PER DAY 02/15/20 20 Active gabapentin (NEURONTIN) 100 mg capsule gabapentin 100 mg capsule TAKE 2 CAPSULE BY MOUTH EVERY 8 HOURS Active Jardiance 10 mg tablet 03/13/[address] (VOLTAREN) 75 mg EC tablet diclofenac sodium 75 mg tablet,delayed release TAKE 1 TABLET BY MOUTH EVERY 12 HOURS NEEDED Active cyclobenzaprine (FLEXERIL) 10 mg tablet cyclobenzaprine 10 mg tablet TAKE 1 TABLET BY MOUTH EVERY 12 HOURS NEEDED Active cetirizine (ZyrTEC) 10 mg tablet Take 10 mg by mouth daily as needed 02/13/20 20 Active azelastine (OPTIVAR) 0.05 % ophthalmic solution 03/14/20 20 Active albuterol HFA (PROVENTIL HFA,VENTOLIN HFA,PROAIR HFA) 90 mcg/actuation inhaler INHALE 2 PUFFS EVERY 6 HOURS NEEDED FOR 10 DAYS 01/22/20 20 Active famotidine (PEPCID) 40 mg tablet TAKE 1 TABLET BY MOUTH EVERYDAY AT BEDTIME 03/03/20 20 Active fluticasone propionate (FLONASE) 50 mcg/actuation nasal spray 03/13/20 20 Active lidocaine (LMX) 4 % cream every 12 hours Activ e OneTouch Ultra Blue Test Strip strip USE TO TEST 3 4 TIMES PER DAY 04/16/19 21 Active Alcohol Prep Pads pads, medicated USE TO TEST 1 TO 2 TIMES DAILY 04/21/19 21 Active HYDROcodone-aceta minophen (NORCO) 5-325 mg per tablet 0 04/22/19 21 Active Artificial Tears, polyvin alc, 1.4 % ophthalmic solution 04/25/19 21 Active ammonium lactate (LAC-HYDRIN) 12 % lotion APPLY 2 APPLICATION(S) EVERY DAY BY TOPICAL ROUTE NEEDED. 08/11/19 21 Active capsaicin (ZOSTRIX) 0.025 % cream capsaicin 0.025 % topical cream APPLY TO THE AFFECTED AREA(S) BY TOPICAL ROUTE 2-3 TIMES PER DAY NEEDED. Active dicyclomine (BENTYL) 20 mg tablet Take 1 tablet (20 mg total) by mouth every 6 (six) hours 24 tablet 02/12/20 24 Active ondansetron ODT (ZOFRAN-ODT) 4 mg disintegrating tablet Take 1 tablet (4 mg total) by mouth every 8 (eight) hours as needed for nausea or vomiting 20 tablet 02/12/20 24 Active Active Problems Problem Noted Date Diagnosed Date Open wound of left lower leg 01/21/2021 Lumbar spondylosis 01/14/2021 Degeneration of lumbar intervertebral disc 11/13 Chronic low back pain 10/29/2020 Kidney stone 10/29/2020 Burn of foot 07/22/2020 Disorder involving thrombocytopenia ([facility]) Anxiety disorder 05/08/2020 Dry skin 04/22/2020 Abdominal pain 03/26/2020 Bilateral plantar fasciitis 03/25/2020 DJD (degenerative joint disease) 03/24/2020 Mucopurulent chronic bronchitis 03/24/2020 Renovascular hypertension 03/24/2020 Reticulocytosis 03/24/2020 Hyperproteinemia 03/20/2020 Type 2 diabetes mellitus 03/15/2020 Hyperbilirubinemia 03/11/2020 Chronic neck pain 02/21/2020 Seasonal allergic conjunctivitis 01/17/2020 Diabetic peripheral neuropathy ([facility]) 020 Elevated liver enzymes 07/10/2019 Uncontrolled type 2 diabetes mellitus 07/10/2019 Calcaneal spur of both feet 06/26/2019 Overweight 06/06/2019 Arthralgia of both knees 06/06/2019 Epistaxis 05/23/2019 Hypertensive disorder 05/23/2019 Gastroesophageal reflux disease without esophagi tis 05/23/2019 Smoker 05/23/2019 Superficial foreign body (sp linter) of right hip, thigh, leg, and ankle, without major open wound 01/15/2017 Immunizations Name Administration Dates Next Due Influenza, Quadrivalent, Rec ombinant, Egg Free, Preservative Free, Intramuscular 02/03/2020 Influenza, Quadrivalent, Spl it, Preservative Free, Intramuscular 02/14/2021 Moderna SARS-CoV-2 Monovalent Vaccination (12+ Y RS) 10/25/2020,09/27/2020 Moderna Sars-cov-2 Monovalent Vaccination (6-11 YRS) 08/06/2020,07/09/2020 Pfizer SARS-CoV-2 Monovalent Vaccination (12+ Yrs) KO-READY TO USE 10/03/2021 Pfizer SARS-CoV-2 Monovalent Vaccination (12+ Yrs) PURPLE 10/03/2021 Pfizer Sars-Cov-2 Bivalent Vaccination (12+ YRS) 09/17/2021 Tdap 06/06/2021 Social History Tobacco Use Types Packs/Day Years Used Date Smoking Tobacco: Every Day Cigarettes 1 12 Smokeless Tobacco: Never Tobacco Cessation:Ready to Q uit: Yes Alcohol Use Standard Drinks/Week Comments Never 0 (1 standard drink = 0.6 oz pur e alcohol) AUDIT-C Answer Date Recorded Q1: How often do you have a drink containing alc ohol? Never 08/05/2020 Average Number of Drinks Not on file 021 Frequency of Binge Drinking Not on file 07/12 Personal Safety Answer Date Recorded Have you ever been in or are you currently in a harmful physical or emotional relationship or is someone making you feel afraid or unsafe? Denies 02/12/2024 Sex and Gender Information Value Date Recorded Sex Assigned at Not on file Legal Sex Male 9:22 PM FIRE SAFETY DIRECTOR Gender Identity Male 03/15/2020 1:20 PM FIRE SAFETY DIRECTOR Sexual Orientation Not on file Last Filed Vital Signs Vital Sign Reading Time Taken Comments Blood Pressure 136/77 02/12/2024 12:00 PM CDT Pulse 62 02/12/2024 12:00 PM CDT Temperature 36.6 ??C (97.9 ??F) 02/12/2024 10:00 AM C DT Respiratory Rate 18 02/12/2024 12:00 PM CDT Oxygen Saturation 100% 02/12/2024 12:00 PM CDT Inhaled Oxygen Concentration - - Weight 76.3 kg (168 lb 3.4 oz) 02/12/2024 8:33 A M CDT Height 193 cm (6' 4 ) 02/12/2024 8:33 AM CDT Body Mass Index 20.48 02/12/2024 8:33 AM CDT Plan of Treatment Not on file Procedures Procedure Name Priority Date/Time Associated Diagnosis Comments LIPASE Routine 03/16/2024 11:14 AM FIRE SAFETY DIRECTOR TROPONIN T HIGH-SENSITIVITY 2-HOUR Timed 02/12/2024 10:[address] ABDOMEN PELVIS W CONTRAST ED 02/12/2024 10:28 AM CDT ECG 12-LEAD STAT 02/12/2024 9:00 AM CDT URINALYSIS AND REFLEX TO MICROSCOPIC AND CULTURE STAT 02/12/2024 8:50 AM CDT EGFR STAT 02/12/2024 8:49 AM CDT DIFFERENTIAL AUTO STAT 02/12/2024 8:4 9 AM CDT TROPONIN T HIGH-SENSITIVITY SERIES (BASELINE, 2HR, 4HR, 6HR) STAT 02/12/2024 8:49 AM CDT LIPASE STAT 02/12/2024 8:49 AM CDT COMPREHENSIVE METABOLIC PANEL STAT 02/12/2024 8:49 AM CDT CBC WITH AUTO DIFFERENTIAL STAT 02/12/2024 8:49 AM CDT HEMOGLOBIN A1C Routine 02/03/2022 11:05 AM CDT LIPID PANEL Routine 06/19/2021 7:47 AM FIRE SAFETY DIRECTOR ALBUMIN CREATININE RATIO, URINE Routine 06/19/2021 7:47 AM FIRE SAFETY DIRECTOR PSA SCREEN Routine 06/19/2021 7:47 AM FIRE SAFETY DIRECTOR COLONOSCOPY IMAGES 06/04/2015 SERUM HEPATITIS PANEL Routine 05/15/2015 1:40 PM FIRE SAFETY DIRECTOR from Last 3 Months or Most Recently Relevant to Health Maintenance Results * Lipase (03/16/2024 11:14 AM FIRE SAFETY DIRECTOR) Lipase 72 10 - 99 Units/L Comment:Testing performed by : [facility], [address] [place] [address]., [id number] Blood 03/16/2024 11:1 4 AM FIRE SAFETY DIRECTOR 03/16/2024 11:59 AM FIRE SAFETY DIRECTOR us Clair Craft NP LAB BLOOD ORDERABLES Final Result Performing Organization Address [facility] Co de Phone Number [address] [address] * Troponin T high-sensitivity 2-hour (02/12/2024 10:54 AM CDT) Trop T hs <6 <=22 ng/L Comment: Interpretive Data For further hscTnT resources including the diagnostic algorithm and an aid in interpretation, copy and paste this link: https://nrl.testcatalog.org/show/hsTrop Current Interpretive Data last revised 2020. Trop T hs delta 0 ng/L [facility] Trop T hs interp Insignificant [facility] Blood 02/12/2024 10:5 4 AM CDT 02/12/2024 10:57 AM CDT us Ti Zhu MD LAB BLOOD ORDERABLES Final Result Performing Organization Address [facility] Co de Phone Number [address] [address] * CT Abdomen Pelvis W Contrast (02/12/2024 10:28 AM CDT) Anatomical Region Laterality Modality Body N/A Computed Tomogra phy 02/12/2024 10:5 0 AM CDT Narrative 02/12/2024 11:01 AM CDT EXAM DESCRIPTION: ?? CT ABDOMEN PELVIS W CONTRAST REASON FOR STUDY: ?? Nausea/vomiting, Abdominal pain, acute, nonlocalized ?? Several days of vomiting-worse yesterday. Diarrhea-no blood. Had routine lab work yesterday at [facility] for DM and blood disorder. Currently pain 10/10 and above, yesterday the pain was worse. Denies blood in vomit or stool. Pain just above ?? umbilicus area and radiates to the left. Abdomen soft/flat. ? Denies sx or ca ?? TECHNIQUE: CT scan of the abdomen and pelvis performed with intravenous and ?? without ??oral contrast using helical scanning technique with dynamic intravenous contrast injection. Reconstructed coronal and sagittal MPR images reviewed. All images stored on PACS. Automated exposure control was used as a dose optimization technique for this examination. CONTRAST TYPE/DOSE: ?? 100mL of IOVERSOL 350 MG IODINE/ML INTRAVENOUS SYRINGE ?? injected via ?? intravenous COMPARISON: 10/27/2020. FINDINGS: LOWER CHEST: ?? Lung bases are predominantly clear. ??There is no pleural effusion. LIVER: ?? There is the low-density lesion in the liver 1 cm in the dome likely a cyst. ??No other hepatic lesions are seen. ??The portal veins are patent. ?? There is some mixing artifact in the SMV. GALLBLADDER: ?? No gallstones or overt inflammatory change. BILE DUCTS: ?? There is no biliary ductal dilation. SPLEEN: ?? The spleen is enlarged at 15.1 cm. PANCREAS: ?? No pancreatic mass or inflammatory change. ?? ADRENALS: ?? Normal KIDNEYS/URINARY TRACT: ?? No right renal calculus. ??There is a low-density lesion from the upper pole right kidney 0.7 cm (image 53). ??No left renal lesions are seen. ??No renal or ureteral calculi. ??There is no hydronephrosis or hydroureter. ??The urinary bladder is unremarkable. ?? GI: ?? No evidence of bowel obstruction. ??There is high density within the colon which may be previous oral contrast or medication such as Pepto-Bismol. ?? The appendix is normal. ??The terminal ileum is normal. ??The stomach and duodenum appear to be normal. ??No abnormal bowel wall thickening identified. ?? There is no pneumatosis. PERITONEUM: ?? Small amount of free fluid in the pelvis. ??The stomach and duodenum are normal. ??No abnormal wall thickening. RETROPERITONEUM: ?? No retroperitoneal mass or lymphadenopathy is seen. REPRODUCTIVE: ?? No significant abnormalities identified. VASCULATURE: ?? Abdominal aorta is nonaneurysmal. MUSCULOSKELETAL: ?? Bone windows demonstrate no acute or aggressive osseous abnormality. ??Vertebral body height and the alignment are normal. ??There is disc space narrowing at L5-S1 with vacuum disc phenomena. ??Broad-based disc bulges most pronounced at L3-4 to a lesser extent L4-5 with a large calcified disc osteophyte complex at L5-S1 contributing to spinal stenosis. OTHER: ?? No other abnormality. IMPRESSION: No evidence of an acute abnormality of the abdomen and pelvis. Small amount of free fluid in the pelvis is nonspecific but may be physiologic. Splenomegaly. Low-density hepatic and right renal lesions too small to characterize but likely cysts. Lower lumbar spondylosis with a large calcified disc osteophyte complex at L5-S1 contributing to spinal stenosis. THIS IS AN ELECTRONICALLY VERIFIED FINAL REPORT 02/12/2024 11:01 AM - Electronically signed by ??Marino Gutierrez M.D. D: ??02/12/2024 11:01 AM T: Report ID: [id number] Reading Location: ??[id number] Procedure Note Marino Gutierrez Jr., MD - 02/12/2024 EXAM DESCRIPTION: CT ABDOMEN PELVIS W CONTRAST REASON FOR STUDY: Nausea/vomiting, Abdominal pain, acute, nonlocalized Several days of vomiting-worse yesterday. Diarrhea-no blood. Had routinelab work yesterday at [facility] for DM and blood disorder. Currentlypain 10 and above, yesterday the pain was worse. Denies blood in vomit orstool. Pain just above umbilicus area and radiates to the left. Abdomensoft/flat. Denies sx or ca TECHNIQUE: CT scan of the abdomen and pelvis performed with intravenousand without oral contrast using helical scanning technique with dynamic intravenous contrast injection. Reconstructed coronal and sagittal MPRimages reviewed. All images stored on PACS. Automated exposure control was usedas a dose optimization technique for this examination. CONTRAST TYPE/DOSE: 100mL of IOVERSOL 350 MG IODINE/ML INTRAVENOUSSYRINGE injected via intravenous COMPARISON: 10/27/2020. FINDINGS: LOWER CHEST: Lung bases are predominantly clear. There is no pleural effusion. LIVER: There is the low-density lesion in the liver 1 cm in the domelikely a cyst. No other hepatic lesions are seen. The portal veins are patent. There is some mixing artifact in the SMV. GALLBLADDER: No gallstones or overt inflammatory change. BILE DUCTS: There is no biliary ductal dilation. SPLEEN: The spleen is enlarged at 15.1 cm. PANCREAS: No pancreatic mass or inflammatory change. ADRENALS: Normal KIDNEYS/URINARY TRACT: No right renal calculus. There is a low-density lesion from the upper pole right kidney 0.7 cm (image 53). No left renal lesions are seen. No renal or ureteral calculi. There is nohydronephrosis or hydroureter. The urinary bladder is unremarkable. GI: No evidence of bowel obstruction. There is high density within the colon which may be previous oral contrast or medication such asPepto-Bismol. The appendix is normal. The terminal ileum is normal. The stomach and duodenum appear to be normal. No abnormal bowel wall thickeningidentified. There is no pneumatosis. PERITONEUM: Small amount of free fluid in the pelvis. The stomach and duodenum are normal. No abnormal wall thickening. RETROPERITONEUM: No retroperitoneal mass or lymphadenopathy is seen. REPRODUCTIVE: No significant abnormalities identified. VASCULATURE: Abdominal aorta is nonaneurysmal. MUSCULOSKELETAL: Bone windows demonstrate no acute or aggressive osseous abnormality. Vertebral body height and the alignment are normal. Thereis disc space narrowing at L5-S1 with vacuum disc phenomena. Broad-baseddisc bulges most pronounced at L3-4 to a lesser extent L4-5 with a largecalcified disc osteophyte complex at L5-S1 contributing to spinal stenosis. OTHER: No other abnormality. IMPRESSION: No evidence of an acute abnormality of the abdomen and pelvis. Small amount of free fluid in the pelvis is nonspecific but may be physiologic. Splenomegaly. Low-density hepatic and right renal lesions too small to characterize but likely cysts. Lower lumbar spondylosis with a large calcified disc osteophyte complexat L5-S1 contributing to spinal stenosis. THIS IS AN ELECTRONICALLY VERIFIED FINAL REPORT 02/12/2024 11:01 AM - Electronically signed by Marino Gutierrez M.D. T: Report ID: [id number] Reading Location: [place] [address] [address] PROCEDURES Final Re sult * ECG 12 lead (02/12/2024 9:00 AM CDT) Ventricular Rate EKG/Min 59 BPM [facility] Atrial Rate 59 BPM [facility] KS-Interval (MSEC) 146 ms [facility] QRS-Interval (MSEC) 100 ms [facility] QT-Interval (MSEC) 382 ms [facility] QTc 378 ms [facility] P [place] 71 degrees [facility] R [place] 51 degrees [facility] T [place] 63 degrees [facility] Diagnosis Sinus bradycardia with sinus arrhythmia Otherwise normal ECG When compared with ECG of 20-FEB-1998 14:43, No significant change was found Confirmed by SULTAN JOYCE M.D. ([id number]) on 02/14/2024 3:04:59 PM [facility] 02/12/2024 9:00 AM CDT 02/14/2024 3:04 PM FIRE SAFETY DIRECTOR us Ti Zhu MD ECG ORDERABLES Final Resu lt [facility] * (ABNORMAL) Urinalysis reflex to microscopic and culture Urine (02/12/2024 8:50 AM CDT) Color, ur Yellow Yellow Clarity, ur Clear Clear [facility] Specific gravity, ur 1.010 1.003 - 1.030 [facility] pH, urine 7.0 [facility] Comment: Interpretive Data ? Urine pH is affected by diet, medications, systemic acid-base disturbances, and renal tubular function. ??pH may affect urinary stone formation. ??For example, urine pH below 6.0 may help reduce the tendency for calcium phosphate stones and pH greater than 6.0 may reduce the tendency for uric acid stone formation. Source: [facility] Posiq Current Interpretive Data was last revised on 2017 Protein, ur ql Negative Negative [facility] Glucose, ur ql Negative Negative [facility] Ketones, ur Negative Negative [facility] Bilirubin, ur Negative Negative [facility] Blood, ur Negative Negative [facility] Urobilinogen, ur 2.0(A) <2.0 mg/dL [facility] Nitrite, ur Negative Negative [facility] Leukocyte esterase, ur Negative Negative [facility] UA reflex comment Reflex conditions for microscopic UA and culture not met. [facility] Urine 02/12/2024 8:50 AM CDT 02/12/2024 8:56 AM CDT Ti Zhu MD LAB MICROBIOLOGY - GENERAL ORDERABLES Final Result Performing Organization Address [facility] de Phone Number [address] [address] * Troponin T high-sensitivity series (baseline, 2hr, 4hr, 6hr) (02/12/2024 8:49 AM CDT) Trop T hs 6 <=22 ng/L Comment: Interpretive Data For further hscTnT resources including the diagnostic algorithm and an aid in interpretation, copy and paste this link: https://nrl.testcatalog.org/show/hsTrop Current Interpretive Data last revised 2020. Blood 02/12/2024 8:49 AM CDT 02/12/2024 8:56 AM CDT us Ti Zhu MD LAB BLOOD ORDERABLES Final Result Performing Organization Address [facility] de Phone Number [address] [address] * eGFR (02/12/2024 8:49 AM CDT) eGFR >90 >=60 mL/min/1. 73 m2 Comment: Interpretive Data Reference Interval Normal ?>/= 90 mL/min/1.73m2 Mildly decreased* ? 60 - 89 mL/min/1.73m2 Mildly to moderately decreased ?45 - 59 mL/min/1.73m2 Moderately to severely decreased ??30 - 44 mL/min/1.73m2 Severely decreased ?15 - 29 mL/min/1.73m2 Kidney Failure ?< 15 ??mL/min/1.73m2 *Relative to young adult level Estimated glomerular filtration rate is determined by the 2020 CKD-EPI equation recommended by the National Kid[employer] (A Unifying Approach to GFR Estimation: Recommendations of the NKF-ASK Task Force on Reassessing the Inclusion of Race in Diagnosing Kidney Disease, JASN 2020). The CKD-EPI equation should not be used for patients with unstable renal function and has not been validated in children and those over 70. Current interpretive data was last reviewed 2021. Blood 02/12/2024 8:49 AM CDT 02/12/2024 8:56 AM CDT us Ti Zhu MD LAB BLOOD ORDERABLES Final Result [facility] [address] [facility] Department of Laboratories [place], [place] [id number] * Differential, auto (02/12/2024 8:49 AM CDT) Pathologist [facility] Neutrophil abs 3.2 1.5 - 6.5 K/cumm Imm gran abs 0.0 0.0 - 0.1 K/cumm [facility] Lymphocyte abs 0.9 0.8 - 3.3 K/cumm [facility] Monocyte abs 0.4 0.2 - 0.8 K/cumm [facility] Eosinophil abs 0.0 0.0 - 0.5 K/cumm [facility] Basophil abs 0.0 0.0 - 0.1 K/cumm [facility] Neutrophil pct 70.1 % [facility] Comment: Interpretive Data Percent cell count reference ranges are not reported, since discordance with absolute values may lead to misinterpretation of CBC data. Current Interpretive Data was last revised on 2017. Imm gran pct 0.2 % [facility] Comment: Interpretive Data Percent cell count reference ranges are not reported, since discordance with absolute values may lead to misinterpretation of CBC data. Current Interpretive Data was last revised on 2017. Lymphocyte pct 20.6 % [facility] Comment: Interpretive Data Percent cell count reference ranges are not reported, since discordance with absolute values may lead to misinterpretation of CBC data. Current Interpretive Data was last revised on 2017. Monocyte pct 8.3 % [facility] Comment: Interpretive Data Percent cell count reference ranges are not reported, since discordance with absolute values may lead to misinterpretation of CBC data. Current Interpretive Data was last revised on 2017. Eosinophil pct 0.4 % [facility] Comment: Interpretive Data Percent cell count reference ranges are not reported, since discordance with absolute values may lead to misinterpretation of CBC data. Current Interpretive Data was last revised on 2017. Basophil pct 0.4 % [facility] Comment: Interpretive Data Percent cell count reference ranges are not reported, since discordance with absolute values may lead to misinterpretation of CBC data. Current Interpretive Data was last revised on 2017. Blood 02/12/2024 8:49 AM CDT 02/12/2024 8:56 AM CDT Ti Zhu MD LAB BLOOD ORDERABLES Final Result [facility] [address] [facility] [place] [address] * (ABNORMAL) CBC with auto differential (02/12/2024 8:49 AM CDT) WBC 4.6 3.8 - 9.9 K/cumm Hgb 13.4 13.0 - 17.5 g/dL [facility] Hct 39.2 38.9 - 50.3 % [facility] Plt 74(L) 150 - 400 K/cumm [facility] MPV Not Measured 9.1 - 12.3 fL [facility] RBC 4.06(L) 4.30 - 5.80 M/cumm [facility] MCV 96.6(H) 81.3 - 96.4 fL [facility] MCH 33.0 27.1 - 33.3 pg [facility] MCHC 34.2 32.3 - 35.7 g/dL [facility] RDW CV 15.7(H) 11.1 - 14.9 % [facility] RDW SD 55.4(H) 35.7 - 48.1 fL [facility] NRBC abs 0.00 0.00 - 0.01 K/cumm [facility] Blood (Blood, Venous) 02/12/2024 8:49 AM CDT 02/12/2024 8:56 AM CDT Ti Zhu MD LAB BLOOD ORDERABLES Final Result Performing Organization Address [facility] de Phone Number [address] [place] [address] * (ABNORMAL) Lipase (02/12/2024 8:49 AM CDT) [facility] Lipase 120(H) 10 - 99 Units/L Blood (Blood, Venous) 02/12/2024 8:49 AM CDT 02/12/2024 8:56 AM CDT Ti Zhu MD LAB BLOOD ORDERABLES Final Result Performing Organization Address [facility] de Phone Number [address] [address] * (ABNORMAL) Comprehensive metabolic panel (02/12/2024 8:49 AM CDT) [facility] Sodium 139 135 - 145 mmol/L Potassium, pl 4.0 3.3 - 4.9 mmol/L [facility] Chloride 103 97 - 110 mmol/L [facility] CO2 27 22 - 32 mmol/L [facility] Anion gap 9 2 - 15 mmol/L [facility] BUN 10 6 - 25 mg/dL [facility] Creatinine 0.95 0.80 - 1.30 mg/dL [facility] Glucose 121 70 - 199 mg/dL [facility] Comment: Interpretive Data Fasting glucose >/= 126 mg/dl is diagnostic for diabetes. ?? Fasting is defined as no caloric intake for at least 8 hours. Fasting glucose between 100 mg/dl to 125 mg/dl is diagnostic of prediabetes. In a patient with classic symptoms of hyperglycemia or hyperglycemic crisis, a random glucose >/= 200 mg/dl is diagnostic for diabetes. In the absence of unequivocal hyperglycemia, results should be confirmed by repeat testing. The classification and Diagnosis of Diabetes Diabetes Care 202; 46: S19-S40. Current interpretive data was last revised 2022. Calcium 10.5(H) 8.5 - 10.3 mg/dL [facility] Bilirubin, total 1.8(H) 0.1 - 1.2 mg/dL [facility] Protein, pl 8.2 6.5 - 8.5 g/dL [facility] Albumin 4.8 3.5 - 5.0 g/dL [facility] Alk phos 44 40 - 130 Units/L [facility] ALT 34 7 - 55 Units/L [facility] AST 39 10 - 50 Units/L [facility] Blood 02/12/2024 8:49 AM CDT 02/12/2024 8:56 AM CDT Ti Zhu MD LAB BLOOD ORDERABLES Final Result Performing Organization Address [facility]/ZIP Co de Phone Number [facility] [address] [facility] Department [place] [address] * Hemoglobin A1c (02/03/2022 11:05 AM CDT) Hgb A1C 5.6 4.0 - 5.6 % [facility] Comment:Testing performed by : [address] [address] Estimated Average Glucose 114 mg/dL [facility] Comment: The ADA recommends reporting an estimated Average Glucose (eAG) with all Hemoglobin A1c results using the equation derived from a study of 507 normal and diabetic adults. ??Minority populations were underrepresented and children were not included. ?? (Diabetes Care 31:3549-9043, 2008). ??The eAG is not equivalent to a fasting glucose. Testing performed by: [address] [address] Blood 02/03/2022 11:0 5 AM CDT 02/03/2022 11:30 AM CDT Girish Freeman MD LAB BLOOD ORDERABLES Final Resu lt Performing Organization Address City/[facility]/ZIP Co de Phone Number [facility] [address] Department [place] [address] * PSA screen (06/19/2021 7:47 AM FIRE SAFETY DIRECTOR) [facility] PSA-Total 1.07 <=3.90 ng/mL [facility] Comment: Interpretive Data ?AGE ? SEX ?REFERENCE INTERVAL 0 minutes-150 years ?Female ?None 0 minutes-49 years ? Male ?None ? 50-59 years ? Male ?0-3.90 ? 60-69 years ? Male ?0-5.40 ? 70-79 years ? Male ?0-6.20 ? 80-150 years ?Male ?0-6.20 Current interpretive data last revised 2017. Testing performed by: [facility], [address] [place] [address]., [id number] Blood 06/19/2021 7:47 AM FIRE SAFETY DIRECTOR 06/19/2021 9:21 AM FIRE SAFETY DIRECTOR us Girish Freeman MD LAB BLOOD ORDERABLES Final Resu lt [facility] [address] [facility] Department [place] [address] * (ABNORMAL) Albumin Creatinine Ratio, Urine (06/19/2021 7:47 AM FIRE SAFETY DIRECTOR) [facility] Albumin Ur <12.0 mg/L [facility] Comment: Interpretive Data No reference range established. Current interpretive data was last revised 2018. Testing performed by: [address] [address] Creatinine Ur 20.1 mg/dL [facility] Comment: Interpretive Data No reference range established. Current interpretive data was last revised 2018. Testing performed by: [facility], [address] [place] [address]., [address] Albumin Creatinine Ratio, Ur <60(H) 1 - 29 mg/g [facility] Comment:Testing performed by : [facility], [address] [place] [address]., [address] Urine 06/19/2021 7:47 AM FIRE SAFETY DIRECTOR 06/19/2021 9:21 AM FIRE SAFETY DIRECTOR us Girish Freeman MD LAB URINE ORDERABLES Final Resu lt [facility] [address] [facility] Department [place] [address] * Lipid panel (06/19/2021 7:47 AM FIRE SAFETY DIRECTOR) Cholesterol 105 30 - 199 mg/dL [facility] Comment: Interpretive Data Ages < or = 19 years ??Acceptable: ? <170 mg/dL ??Borderline high: ??170-199 mg/dL ??High: ? >or= 200 mg/dL Ages > or = 20 years ??Desirable: ?<200 mg/dL ??Borderline high: ??200-239 mg/dL ??High: ? >or= 240 mg/dL Literature References: 1. Expert Panel on Integrated Guidelines for Cardiovascular Health and Risk Reduction in Children and Adolescents. Pediatrics 2011;128:S213 2. NCEP Expert Panel. Circulation 2004;110:227 Current Interpretive Data was last revised on 2017. Testing performed by: [address] [address] Triglycerides 45 <=149 mg/dL [facility] Comment: Interpretive Data Ages < or = 9 years ??Acceptable: ? <75 mg/dL ??Borderline high: ??75-99 mg/dL ??High: ? >or= 100 mg/dL Ages 10 to 20 years ??Acceptable: ? <90 mg/dL ??Borderline high: ??90-129 mg/dL ??High: ? >or= 130 mg/dL Ages > or = 20 years ??Desirable: ?<150 mg/dL ??Borderline high: ??150-199 mg/dL ??High: ? 200-499 mg/dL ?Very high: ?? >or= 499 mg/dL Literature References: 1. Expert Panel on Integrated Guidelines for Cardiovascular Health and Risk Reduction in Children and Adolescents. Pediatrics 2011;128:S213 2. NCEP Expert Panel. Circulation 2004;110:227 Current Interpretive Data was last revised on 2017. Testing performed by: [address] [address] HDL 67 >=40 mg/dL [facility] Comment: Interpretive Data Ages < or = 19 years ??Acceptable: ? >45 mg/dL ??Borderline low: ?? 40-45 mg/dL ??Low: ? <40 mg/dL Ages > or = 20 years ??Desirable: ?>or= 60 mg/dL ??Low: ? <40 mg/dL Literature References: 1. Expert Panel on Integrated Guidelines for Cardiovascular Health and Risk Reduction in Children and Adolescents. Pediatrics 2011;128:S213 2. NCEP Expert Panel. Circulation 2004;110:227 Current Interpretive Data was last revised on 2017. Testing performed by: [address] [address] LDL, calculated 29 <=129 mg/dL [facility] Comment: Interpretive Data Ages < or = 19 years ??Acceptable: ? <110 mg/dL ??Borderline high: ??110-129 mg/dL ??High: ?>or= 130 mg/dL Ages > or = 20 years ??Optimal: ? <100 mg/dL ??Near optimal: ?100-129 mg/dL ??Borderline high: ?? 130-159 mg/dL ??High: ?>160 mg/dL Literature References: 1. Expert Panel on Integrated Guidelines for Cardiovascular Health and Risk Reduction in Children and Adolescents. Pediatrics 2011;128:S213 2. NCEP Expert Panel. Circulation 2004;110:227 Current Interpretive Data was last revised on 2017. Testing performed by: [address] [address] Non-HDL Cholesterol 38 mg/dL [facility] Comment: Interpretive Data Ages < or = 19 years ??Acceptable: ?<120 mg/dL ??Borderline high: ??120-144 mg/dL ??High: ?>145 mg/dL Ages > or = 20 years ??When triglycerides are >200 mg/dL, Non-HDL cholesterol is a secondary target of ? therapy with treatment goals that are 30 mg/dL greater than the LDL cholesterol target. ? Literature References: 1. Expert Panel on Integrated Guidelines for Cardiovascular Health and Risk Reduction in Children and Adolescents. Pediatrics 2011;128:S213 2. NCEP Expert Panel. Circulation 2004;110:227 Current Interpretive Data was last revised on 2017. Testing performed by: [address] [address] Chol/HDL ratio 2 [facility] Comment:Testing performed by : [address] [address] Blood 06/19/2021 7:47 AM FIRE SAFETY DIRECTOR 06/19/2021 9:21 AM FIRE SAFETY DIRECTOR us Girish Freeman MD LAB BLOOD ORDERABLES Final Resu lt [facility] [address] [facility] Department [place] [address] * COLONOSCOPY IMAGES (06/04/2015) Anatomical Region Laterality Modality Other Narrative 06/04/2015 Ordered by an unspecified provider. us Historical Provider GI PROCEDURE ORDERABLES F inal Result * Serum Hepatitis panel (05/15/2015 1:40 PM FIRE SAFETY DIRECTOR) HBV surface ag Negative NEG HISTO RICAL RESULTS HCV ab Negative NEG HISTORICAL RESULTS Comment: Interpretive Data If confirmation is required, call Laboratory Customer Service to request sample to be sent to [facility] for Hepatitis C Virus (HCV) RNA Detection and Quantitation by Real-Time Reverse Senior Gl Accountant-PCR (RT-PCR). Current interpretive data was last revised on 2011 HBV core ab, IgM Negative NEG HIS TORICAL RESULTS Comment: Interpretive Data If test is reported as Equivocal, new sample should be drawn for testing. Current interpretive data was last revised on 2007. HAV ab, IgM Negative NEG HISTORI CLAUDIA RESULTS Comment: Interpretive Data If test is reported as Equivocal, new sample should be drawn in two weeks for testing. Current interpretive data was last revised on 2007. Serum 05/15/2015 1:40 PM FIRE SAFETY DIRECTOR Mate Abimael ADKINS LAB BLOOD ORDERABLES Final Resul t HISTORICAL RESULTS from Last 3 Months or Most Recently Relevant to Health Maintenance Insurance [facility] Care Teams Program Services Assistant Relationship Specialty Start Date End Date Arie Rodrigues MD [address] [place] [address] [address] PCP - General Family Medicine 02/12/24 Girish Freeman MD [address] [place] [address] Family Medicine 03/15/20 Franky Pritchard MD [address] [place] [address] Consulting Physician Hematology and Oncology 07/19/20 Franky Pritchard MD [address] [place] [address] Medical Oncologist/Hematologis t Hematology and Oncology 05/26/22
--- OUTSIDE RECORDS SUMMARY | 2024-05-08 13:27 | XMS_ITS | Clinical Summary ---
Author Organization [facility] website Address [address] [place] [address] Care Team Providers Care Floorworker Name Role Phone FreemanGirish Primary Care Provider Unavailab le Source Comments [facility],non-owned Affiliates and Associated Physician Practices is amultiple site organization consisting of ambulatory clinics and hospital sitesin [place], [place], [place] and [place]. This disclosure is being madepursuant to the Care Everywhere program and may not contain all information available regarding this patient. Last updated 17.[facility] website Social History Tobacco Use Types Packs/Day Years Used Date Smoking Tobacco: Never Assessed Sex and Gender Information Value Date Recorded Sex Assigned at Not on file Gender Identity Not on file Sexual Orientation Not on file Plan of Treatment Health Maintenance Due Date Last Done Comments COLOGUARD (AGES 45-75) - COL ON CA SCREENING 1967 COLON MONITORING 1967 COLONOSCOPY - COLON CA SCREENING 1967 CT COLONOGRAPHY - COLON CA SCREENING 1967 Colorectal Cancer Screening 1967 FIT - COLON CA SCREENING 1967 FLEX SIG - COLON CA SCREENING 1967 LIPID TESTING 1967 HIV SCREENING 12/28/1982 HEPATITIS C SCREENING 12/24/1985 DTAP/TDAP/TD VACCINES (1 - Tdap) 12/28/1986 HEPATITIS B VACCINE (1 of 3 - 19+ 3-dose series) 12/28/1986 PNEUMOCOCCAL VACCINE 50+ (1 of 1 - PCV) 12/28/2017 ZOSTER VACCINE (1 of 2) 12/28/2017 COVID-19 VACCINE ( - 2023-2 5 season) 2023 INFLUENZA VACCINE (#1) 2023 02/03/2020 DEPRESSION SCREENING 04/12/2024 HIB VACCINE Aged Out No longer eligi ble based on patient's age to complete this topic HPV VACCINE Aged Out No longer eligi ble based on patient's age to complete this topic MENINGOCOCCAL (Group B) VACCINE Aged Out No longer eligible based on patient's age to complete this topic MENINGOCOCCAL VACCINE Aged Out No yaneli millie eligible based on patient's age to complete this topic PNEUMOCOCCAL VACCINE Aged Out No long er eligible based on patient's age to complete this topic Care Teams Floorworker Relationship Specialty Start Date End Date Girish Freeman Update Information PCP - General 05/11/20
--- OUTSIDE RECORDS SUMMARY | 2024-05-08 13:27 | XMS_ITS | Clinical Summary ---
Author Organization [facility] Address [address] [place] [phone] Care Team Providers Care Pharmacy Stock Clerk Name Role Phone Girish Freeman MD Unavailable [phone] Franky Pritchard MD Unavailable [phone] Franky Pritchard MD Unavailable [phone] Arie Rodrigues MD Primary Care Provider [phone] Allergies Active Allergy Reactions Criticality Noted Date [...] % cream every 12 hours Activ e makerSQR Ultra Blue Test Strip strip USE TO [...] Burn of foot 07/22/2020 Disorder involving thrombocytopenia (CMS/HCC) Anxiety disorder 05/08/2020 Dry skin 04/22/2020 Abdominal pain 03/26/2020 Bilateral plantar fasciitis 03/25/2020 DJD (degenerative joint disease) 03/24/2020 Mucopurulent chronic bronchitis 03/24/2020 Renovascular hypertension 03/24/2020 Reticulocytosis 03/24/2020 Hyperproteinemia 03/20/2020 Type 2 diabetes mellitus 03/15/2020 Hyperbilirubinemia 03/11/2020 Chronic neck pain 02/21/2020 Seasonal allergic conjunctivitis 01/17/2020 Diabetic peripheral neuropathy (CMS/HCC) 020 Elevated liver enzymes 07/10/2019 Uncontrolled type 2 diabetes mellitus 07/10/2019 Calcaneal spur of both feet 06/26/2019 Overweight 06/06/2019 Arthralgia of both knees 06/06/2019 Epistaxis 05/23/2019 Hypertensive disorder 05/23/2019 Gastroesophageal reflux disease without esophagi tis 05/23/2019 Smoker 05/23/2019 Superficial foreign body (sp linter) of right hip, thigh, leg, and ankle, without major open wound 01/15/2017 Encounters Date Type Department Care Team Description 03/16/2024 11:00 AM STERILIZATION TECHNICIAN Lab [facility] Building [address] [address] 02/14/2024 Telephone [facility] Gastroenterology at [address] [place] [address] [phone] MD 02/12/2024 9:57 AM CDT - 02/12/2024 12:25 PM CDT Emergency [facility] [address] [place] [address] Nausea and vomiting, unspecified vomiting type (Primary Dx); Abdominal cramping Discharge Disposition: Discharge to home or self care 02/09/2024 Telephone [facility] Oncology [address] [place] [address] Tracy Larios CLT from Last 3 Months Immunizations Name Administration Dates Next Due Influenza, [...] Bivalent Vaccination (12+ YRS) 09/17/2021 Tdap 06/06/2021 Surgical History Surgery Date Site/Laterality Comments COLONOSCOPY 04/12/2015 - 04/11/2016 [facility] Medical History Medical History Date Comments Diabetes mellitus (HCC) DJD (degenerative joint disease) 03/24/2020 Mucopurulent chronic bronchitis (HCC) 03/24/2020 Renovascular hypertension 03/24/2020 Social History Tobacco Use Types Packs/Day Years [...] on file Legal Sex Male 9:22 PM STERILIZATION TECHNICIAN Gender Identity Male 03/15/2020 1:20 PM STERILIZATION TECHNICIAN Sexual Orientation Not on file Obstetrics History Last Filed Vital Signs Vital Sign Reading [...] 02/12/2024 8:33 AM CDT Plan of Treatment Health Maintenance Due Date Last Done Comments Depression Screening 1965 Dilated Eye Exam 1967 Foot Exam 1965 Pneumococcal vaccine <65 (1 of 2 - PCV) 12/28/1973 Hepatitis B Screening 12/28/1985 Regular Well Visit/Exam 18-64 12/28/1985 Zoster Vaccine (1 of 2) 12/28/2017 Albumin Creatinine Ratio, Urine 06/19/2022 Lipid Panel 06/19/2022 06/19/2021 Hemoglobin A1C 08/04/2022 02/03/2022, 09/0 09/2021, 09/30/2021, Additional history exists Prostate Cancer Screening-PSA 06/20/2023 06/19/2021, 12/04/2020 Covid-19 Vaccine (2023-2 5 season) 2023 10/03/2021, 10/03/2021, 09/17/2021, Additional history exists Influenza Vaccine (#1) 2023 02/14/2021, 2019 eGFR 02/11/2025 02/12/2024, 05/13, 03/23/2022, Additional history exists Colon Cancer Screening-Colonoscopy 06/04/20252015, 06/04/2015 DTaP/Tdap/Td Vaccine (2 - Td or Tdap) 06/06/2031 06/06/2021 Hepatitis C Screening Completed 05/15/2015 Procedures Procedure Name Priority Date/Time Associated Diagnosis Comments LIPASE Routine 03/16/2024 11:14 AM STERILIZATION TECHNICIAN TROPONIN T HIGH-SENSITIVITY 2-HOUR Timed 02/12/2024 10:54 [...] CDT LIPID PANEL Routine 06/19/2021 7:47 AM STERILIZATION TECHNICIAN ALBUMIN CREATININE RATIO, URINE Routine 06/19/2021 7:47 AM STERILIZATION TECHNICIAN PSA SCREEN Routine 06/19/2021 7:47 AM STERILIZATION TECHNICIAN COLONOSCOPY IMAGES 06/04/2015 SERUM HEPATITIS PANEL Routine 05/15/2015 1:40 PM STERILIZATION TECHNICIAN from Last 3 Months or Most Recently Relevant to Health Maintenance Results * Lipase (03/16/2024 11:14 AM STERILIZATION TECHNICIAN) Lipase 72 10 - 99 Units/L Comment:Testing performed by : [facility], [address] [place] [address], [place]., [address] Blood 03/16/2024 11:1 4 AM STERILIZATION TECHNICIAN 03/16/2024 11:59 AM STERILIZATION TECHNICIAN Clair Craft NP LAB BLOOD ORDERABLES Final Result [facility] [address] [facility] [place] [address] 84 * Troponin T high-sensitivity 2-hour (02/12/2024 10:54 AM CDT) Trop T hs <6 <=22 ng/L Comment: Interpretive Data For further hscTnT resources including the diagnostic algorithm and an aid in interpretation, copy and paste this link: https://nrl.testcatalog.org/show/hsTrop Current Interpretive Data last revised 2020. Trop T hs delta 0 ng/L [facility] Trop T hs interp Insignificant [facility] Blood 02/12/2024 10:5 4 AM CDT 02/12/2024 10:57 AM CDT us Ti Zhu MD LAB BLOOD ORDERABLES Final Result [facility] [address] [facility] [place] [address] * CT Abdomen Pelvis W Contrast (02/12/2024 10:28 AM CDT) Anatomical Region Laterality Modality Body N/A Computed Tomogra phy 02/12/2024 10:5 0 AM CDT Narrative 02/12/2024 11:01 AM CDT EXAM DESCRIPTION: ?? CT ABDOMEN PELVIS W CONTRAST REASON FOR STUDY: ?? Nausea/vomiting, Abdominal pain, acute, nonlocalized ?? Several days of vomiting-worse yesterday. Diarrhea-no blood. Had routine lab work yesterday at [facility] for DM and blood disorder. Currently [...] D: ??02/12/2024 11:01 AM T: Report ID: [id number] Reading Location: ??[id number] Procedure Note aMrino Gutierrez Jr., MD - 02/12/2024 EXAM DESCRIPTION: CT ABDOMEN PELVIS W CONTRAST REASON FOR STUDY: Nausea/vomiting, Abdominal pain, acute, nonlocalized Several days of vomiting-worse yesterday. Diarrhea-no blood. Had routinelab work yesterday at [facility] for DM and blood disorder. Currentlypain 01/19 and above, yesterday the pain was worse. [...] by Marino Gutierrez M.D. T: Report ID: [id number] Reading Location: [place] [address] PROCEDURES Final Re sult * ECG 12 lead (02/12/2024 9:00 AM CDT) Ventricular Rate EKG/Min 59 BPM [facility] Atrial Rate 59 BPM [facility] OH-Interval (MSEC) 146 ms [facility] QRS-Interval (MSEC) 100 ms [facility] QT-Interval (MSEC) 382 ms [facility] QTc 378 ms [facility] P [place] 71 degrees [facility] R [place] 51 degrees [facility] T [place] 63 degrees [facility] Diagnosis Sinus bradycardia with sinus arrhythmia Otherwise normal ECG When compared with ECG of 20-FEB-1998 14:43, No significant change was found Confirmed by SULTAN JOYCE M.D. ([id number]) on 02/14/2024 3:04:59 PM [facility] 02/12/2024 9:00 AM CDT 02/14/2024 3:04 PM STERILIZATION TECHNICIAN Ti Zhu MD ECG ORDERABLES Final Resu lt Performing Organization Address City/[facility]/ZIP Co de Phone Number [facility] [employer] [facility] * (ABNORMAL) Urinalysis reflex to microscopic and culture Urine (02/12/2024 8:50 AM CDT) Color, ur Yellow Yellow Clarity, ur Clear Clear [facility] Specific gravity, ur 1.010 1.003 - 1.030 [facility] pH, urine 7.0 [facility] Comment: Interpretive Data ? Urine pH is affected by diet, medications, systemic acid-base disturbances, and renal tubular function. ??pH may affect urinary stone formation. ??For example, urine pH below 6.0 may help reduce the tendency for calcium phosphate stones and pH greater than 6.0 may reduce the tendency for uric acid stone formation. Source: [facility] Current Interpretive Data was last revised on 2017 Protein, ur ql Negative Negative [facility] Glucose, ur ql Negative Negative [facility] Ketones, ur Negative Negative [facility] Bilirubin, ur Negative Negative [facility] Blood, ur Negative Negative [facility] Urobilinogen, ur 2.0(A) <2.0 mg/dL [facility] Nitrite, ur Negative Negative [facility] Leukocyte esterase, ur Negative Negative [facility] UA reflex comment Reflex conditions for microscopic UA and culture not met. [facility] Urine 02/12/2024 8:50 AM CDT 02/12/2024 8:56 AM CDT Ti Zhu MD LAB MICROBIOLOGY - GENERAL ORDERABLES Final Result Performing Organization Address City/[facility]/ZIP Co de Phone Number [facility] [address] [facility] Department [place] [address] * Troponin T high-sensitivity series (baseline, 2hr, [...] Zhu MD LAB BLOOD ORDERABLES Final Result [facility] [address] [facility] Department [place] [address] * eGFR (02/12/2024 8:49 AM CDT) Pathologist [facility] eGFR >90 >=60 mL/min/1. 73 m2 Comment: [...] Zhu MD LAB BLOOD ORDERABLES Final Result [facility] [address] [facility] Department [place] [address] * Differential, auto (02/12/2024 8:49 AM CDT) Neutrophil abs 3.2 1.5 - 6.5 K/cumm Imm gran abs 0.0 0.0 - 0.1 K/cumm [facility] Lymphocyte abs 0.9 0.8 - 3.3 K/cumm [facility] Monocyte abs 0.4 0.2 - 0.8 K/cumm [facility] Eosinophil abs 0.0 0.0 - 0.5 K/cumm [facility] Basophil abs 0.0 0.0 - 0.1 K/cumm [facility] Neutrophil pct 70.1 % [facility] Comment: Interpretive Data Percent cell count reference ranges are not reported, since discordance with absolute values may lead to misinterpretation of CBC data. Current Interpretive Data was last revised on 2017. Imm gran pct 0.2 % [facility] Comment: Interpretive Data Percent cell count reference ranges are not reported, since discordance with absolute values may lead to misinterpretation of CBC data. Current Interpretive Data was last revised on 2017. Lymphocyte pct 20.6 % [facility] Comment: Interpretive Data Percent cell count reference ranges are not reported, since discordance with absolute values may lead to misinterpretation of CBC data. Current Interpretive Data was last revised on 2017. Monocyte pct 8.3 % [facility] Comment: Interpretive Data Percent cell count reference ranges are not reported, since discordance with absolute values may lead to misinterpretation of CBC data. Current Interpretive Data was last revised on 2017. Eosinophil pct 0.4 % [facility] Comment: Interpretive Data Percent cell count reference ranges are not reported, since discordance with absolute values may lead to misinterpretation of CBC data. Current Interpretive Data was last revised on 2017. Basophil pct 0.4 % [facility] Comment: Interpretive Data Percent cell count reference ranges are not reported, since discordance with absolute values may lead to misinterpretation of CBC data. Current Interpretive Data was last revised on 2017. Blood 02/12/2024 8:49 AM CDT 02/12/2024 8:56 AM CDT Ti Zhu MD LAB BLOOD ORDERABLES Final Result Performing Organization Address City/[facility] Co de Phone Number [address] [place] [address] * (ABNORMAL) CBC with auto differential (02/12/2024 8:49 AM CDT) WBC 4.6 3.8 - 9.9 K/cumm Hgb 13.4 13.0 - 17.5 g/dL [facility] Hct 39.2 38.9 - 50.3 % [facility] Plt 74(L) 150 - 400 K/cumm [facility] MPV Not Measured 9.1 - 12.3 fL [facility] RBC 4.06(L) 4.30 - 5.80 M/cumm [facility] MCV 96.6(H) 81.3 - 96.4 fL [facility] MCH 33.0 27.1 - 33.3 pg [facility] MCHC 34.2 32.3 - 35.7 g/dL [facility] RDW CV 15.7(H) 11.1 - 14.9 % [facility] RDW SD 55.4(H) 35.7 - 48.1 fL [facility] NRBC abs 0.00 0.00 - 0.01 K/cumm [facility] Blood (Blood, Venous) 02/12/2024 8:49 AM CDT 02/12/2024 8:56 AM CDT Ti Zhu MD LAB BLOOD ORDERABLES Final Result Performing Organization Address City/[facility]/ZIP Co de Phone Number [place] [address] [facility] [place] [address] * (ABNORMAL) Lipase (02/12/2024 8:49 AM CDT) [facility] Lipase 120(H) 10 - 99 Units/L Blood (Blood, Venous) 02/12/2024 8:49 AM CDT 02/12/2024 8:56 AM CDT Ti Zhu MD LAB BLOOD ORDERABLES Final Result [address] [address] * (ABNORMAL) Comprehensive metabolic panel (02/12/2024 8:49 AM CDT) [facility] Sodium 139 135 - 145 mmol/L Potassium, pl 4.0 3.3 - 4.9 mmol/L [facility] Chloride 103 97 - 110 mmol/L [facility] CO2 27 22 - 32 mmol/L [facility] Anion gap 9 2 - 15 mmol/L [facility] BUN 10 6 - 25 mg/dL [facility] Creatinine 0.95 0.80 - 1.30 mg/dL [facility] Glucose 121 70 - 199 mg/dL [facility] Comment: Interpretive Data Fasting glucose >/= 126 [...] classification and Diagnosis of Diabetes Diabetes Care 2021; 46: S19-S40. Current interpretive data was last revised 2022. Calcium 10.5(H) 8.5 - 10.3 mg/dL [facility] Bilirubin, total 1.8(H) 0.1 - 1.2 mg/dL [facility] Protein, pl 8.2 6.5 - 8.5 g/dL [facility] Albumin 4.8 3.5 - 5.0 g/dL [facility] Alk phos 44 40 - 130 Units/L [facility] ALT 34 7 - 55 Units/L [facility] AST 39 10 - 50 Units/L [facility] Blood 02/12/2024 8:49 AM CDT 02/12/2024 8:56 AM CDT Ti Zhu MD LAB BLOOD ORDERABLES Final Result Performing Organization Address [facility] de Phone Number [facility] [address] [facility] [employer] [place] [place] [address] * Hemoglobin A1c (02/03/2022 11:05 AM CDT) [facility] Hgb A1C 5.6 4.0 - 5.6 % [facility] Comment:Testing performed by : [address] [address] Estimated Average Glucose 114 mg/dL [facility] Comment: The ADA recommends reporting an estimated Average Glucose (eAG) with all Hemoglobin A1c results using the equation derived from a study of 507 normal and diabetic adults. ??Minority populations were underrepresented and children were not included. ?? (Diabetes Care 31:2632-9082, 2008). ??The eAG is not equivalent to a fasting glucose. Testing performed by: [address] [address] Blood 02/03/2022 11:0 5 AM CDT 02/03/2022 11:30 AM CDT Girish Freeman MD LAB BLOOD ORDERABLES Final Resu lt Performing Organization Address [facility] de Phone Number [facility] [address] [facility] [employer] [place] [address] * PSA screen (06/19/2021 7:47 AM STERILIZATION TECHNICIAN) [facility] PSA-Total 1.07 <=3.90 ng/mL [facility] Comment: Interpretive Data ?AGE ? SEX ?REFERENCE INTERVAL 0 minutes-150 years ?Female ?None 0 minutes-49 years ? Male ?None ? 50-59 years ? Male ?0-3.90 ? 60-69 years ? Male ?0-5.40 ? 70-79 years ? Male ?0-6.20 ? 80-150 years ?Male ?0-6.20 Current interpretive data last revised 2017. Testing performed by: [address] [address] Blood 06/19/2021 7:47 AM STERILIZATION TECHNICIAN 06/19/2021 9:21 AM STERILIZATION TECHNICIAN us Girish Freeman MD LAB BLOOD ORDERABLES Final Resu lt [facility] [address] [facility] Department [place] [address] * (ABNORMAL) Albumin Creatinine Ratio, Urine (06/19/2021 7:47 AM STERILIZATION TECHNICIAN) Albumin Ur <12.0 mg/L [facility] Comment: Interpretive Data No reference range established. Current interpretive data was last revised 2018. Testing performed by: [address] [address] Creatinine Ur 20.1 mg/dL [facility] Comment: Interpretive Data No reference range established. Current interpretive data was last revised 2018. Testing performed by: [address] [address] Albumin Creatinine Ratio, Ur <60(H) 1 - 29 mg/g [facility] Comment:Testing performed by : [address] [address] Urine 06/19/2021 7:47 AM STERILIZATION TECHNICIAN 06/19/2021 9:21 AM STERILIZATION TECHNICIAN us Girish Freeman MD LAB URINE ORDERABLES Final Resu lt [facility] [address] [facility] Department [place] [address] * Lipid panel (06/19/2021 7:47 AM STERILIZATION TECHNICIAN) Cholesterol 105 30 - 199 mg/dL [facility] [...] last revised on 2017. Testing performed by: [facility], [address] [place] [address]., [address] Triglycerides 45 <=149 mg/dL [facility] Comment: Interpretive Data Ages < or = [...] last revised on 2017. Testing performed by: [address] [address] HDL 67 >=40 mg/dL [facility] Comment: Interpretive Data Ages < or = [...] last revised on 2017. Testing performed by: [address] [address] LDL, calculated 29 <=129 mg/dL [facility] Comment: Interpretive Data Ages < or = [...] last revised on 2017. Testing performed by: [address] [address] Non-HDL Cholesterol 38 mg/dL [facility] Comment: Interpretive Data Ages < or = [...] last revised on 2017. Testing performed by: [address] [address] Chol/HDL ratio 2 [facility] Comment:Testing performed by : [address] [address] Blood 06/19/2021 7:47 AM STERILIZATION TECHNICIAN 06/19/2021 9:21 AM STERILIZATION TECHNICIAN Girish Freeman MD LAB BLOOD ORDERABLES Final Resu lt [facility] [address] [facility] Department [place] [address] * COLONOSCOPY IMAGES (06/04/2015) Anatomical Region Laterality Modality Other Narrative 06/04/2015 Ordered by an unspecified provider. Historical Provider GI PROCEDURE ORDERABLES F inal Result * Serum Hepatitis panel (05/15/2015 1:40 PM STERILIZATION TECHNICIAN) HBV surface ag Negative NEG HISTO RICAL RESULTS HCV ab Negative NEG HISTORICAL RESULTS Comment: Interpretive Data If confirmation is required, call Laboratory Customer Service to request sample to be sent to [facility] for Hepatitis C Virus (HCV) RNA Detection and Quantitation by Real-Time Reverse Blast Furnace Keeper Helper-PCR (RT-PCR). Current interpretive data was last revised on 2011 HBV core ab, IgM Negative NEG HIS TORICAL RESULTS Comment: Interpretive Data If test is reported as Equivocal, new sample should be drawn for testing. Current interpretive data was last revised on 2007. HAV ab, IgM Negative NEG HISTORIC AL RESULTS Comment: Interpretive Data If test is reported as Equivocal, new sample should be drawn in two weeks for testing. Current interpretive data was last revised on 2007. Serum 05/15/2015 1:40 PM STERILIZATION TECHNICIAN Darrell Varghese MD LAB BLOOD ORDERABLES Final Resul t HISTORICAL RESULTS from Last 3 Months or Most Recently Relevant to Health Maintenance Insurance [facility] Care Teams Pharmacy Stock Clerk Relationship Specialty Start Date End Date Arie Rodrigues MD [facility] [place] [address] PCP - General Family Medicine 02/12/24 Girish Freeman MD [address] [facility] [place] [address] Family Medicine 03/15/20 Franky Pritchard MD [address] [facility] [place] [address] Consulting Physician Hematology and Oncology 07/19/20 Franky Pritchard MD [address] [facility] [place] [address] Medical Oncologist/Hematologis t Hematology and Oncology 05/26/22
--- OUTSIDE RECORDS SUMMARY | 2024-05-08 13:27 | XMS_ITS ---
Author Organization [facility] Address [address] [place] [address] Phone Care Team Providers Care Podiatric Foot And Ankle Specialist Name Role Phone Unavailable Unavailable Unavailable Plan of Treatment No Plan of Treatment Recorded Assessments Includes: Assessments for all patient encounters No Assessments Recorded Medical Equipment - Implanted Devices Includes: Current and historical Devices No Medical Equipment Recorded Medications Administered Includes: Administered Medications in patient's chart No Administered Medications Recorded Results Includes: Results from 05/08/2023 through 05/08/2024 No Results Recorded For Specified Dates History of Present Illness History of Present Illness not supported for this document type No History of Present Illness Recorded Social History No Social History Recorded - Smoking Status Unknown Medical History Includes: Medical History in patient's chart No Medical History Recorded Family History Includes: Family History in patient's chart No Family History Recorded Review of Systems Review of Systems not supported for this document type No Review of Systems Recorded Mental Status No Mental Status Recorded Functional Status No Functional Status Recorded Physical Exam Physical Exam not supported for this document type No Physical Exam Recorded Clinical Notes Includes: Signed Clinical Notes starting from 05/01/2022 No Clinical Notes Recorded
== END 2024-05-08 12:52 | disposition home or self-care (01) ==
PROVIDERS: PCP Family Medicine; Visit Provider Nurse Practitioner Family
DX: M25.562 Pain in left knee (principal)
CPT/HCPCS: 73562

== ENCOUNTER 2024-10-12 01:40 | Day surgery (SDC) | payer OTHER, SELFPAY ==
[2024-09-27 10:55] VITALS: BMI 20.9
--- NOTE | 2024-10-09 13:26 | PC.NURSE ---
Pt called with concern that he would be unable to be NPO for 7 1/2 hours. He stated, I pee my brains out and become very dehydrated if I don't drink anything. Pt approved to drink water until 3:00 am and NPO after that time. I also stressed to pt that his procedure could be delayed or canceled if he were to drink after 3:00 am. Pt stated understanding.
--- OUTSIDE RECORDS SUMMARY | 2024-10-12 01:43 | XMS_ITS | Referral Summary ---
Author Organization [facility] Address [address] [place] [id number] Care Team Providers Care Cctv Technician Name Role Phone Girish Freeman MD Unavailable [phone] Franky Pritchard MD Unavailable [phone] Franky Pritchard MD Unavailable [phone] Arie Rodrigues MD Primary Care Provider [phone] Allergies Active Allergy Reactions Criticality Noted Date [...] % cream every 12 hours Activ e MAPPER Lithography Ultra Blue Test Strip strip USE TO [...] Burn of foot 07/22/2020 Disorder involving thrombocytopenia 07/02/2020 Anxiety disorder 05/08/2020 Dry skin 04/22/2020 Abdominal pain 03/26/2020 Bilateral plantar fasciitis 03/25/2020 DJD (degenerative joint disease) 03/24/2020 Mucopurulent chronic bronchitis 03/24/2020 Renovascular hypertension 03/24/2020 Reticulocytosis 03/24/2020 Hyperproteinemia 03/20/2020 Type 2 diabetes mellitus 03/15/2020 Hyperbilirubinemia 03/11/2020 Chronic neck pain 02/21/2020 Seasonal allergic conjunctivitis 01/17/2020 Diabetic peripheral neuropathy 09/05/2019 Elevated liver enzymes 07/10/2019 Uncontrolled type 2 diabetes mellitus 07/10/2019 Calcaneal spur of both feet 06/26/2019 Overweight 06/06/2019 Arthralgia of both knees 06/06/2019 Epistaxis 05/23/2019 Hypertensive disorder 05/23/2019 Gastroesophageal reflux disease without esophagi tis 05/23/2019 Smoker 05/23/2019 Superficial foreign body (sp linter) of right hip, thigh, leg, and ankle, without major open wound 01/15/2017 Immunizations Immunization Administration Dates Next Due Influenza, Quadrivalent, Rec [...] on file Legal Sex Male 9:22 PM AWNING ASSEMBLER Gender Identity Male 03/15/2020 1:20 PM AWNING ASSEMBLER Sexual Orientation Not on file Last Filed Vital Signs Vital Sign Reading Time Taken Comments Blood Pressure 136/77 02/12/2024 12:00 PM CDT Pulse 62 02/12/2024 12:00 PM CDT Temperature 36.6 C (97.9 F) 02/12/2024 10:00 AM CDT Respiratory Rate 18 02/12/2024 12:00 PM CDT Oxygen Saturation 100% 02/12/2024 12:00 PM CDT Inhaled Oxygen Concentration - - Weight 76.3 kg (168 lb 3.4 oz) 02/12/2024 8:33 A M CDT Height 193 cm (6' 4) 02/12/2024 8:33 AM CDT Body Mass Index 20.48 02/12/2024 8:33 AM CDT Plan of Treatment Not on file Procedures Procedure Name Priority Date/Time Associated Diagnosis Comments EGFR STAT 02/12/2024 8:49 AM CDT HEMOGLOBIN A1C Routine 02/03/2022 11:05 AM CDT LIPID PANEL Routine 06/19/2021 7:47 AM AWNING ASSEMBLER ALBUMIN CREATININE RATIO, URINE Routine 06/19/2021 7:47 AM AWNING ASSEMBLER PSA SCREEN Routine 06/19/2021 7:47 AM AWNING ASSEMBLER COLONOSCOPY IMAGES 06/04/2015 SERUM HEPATITIS PANEL Routine 05/15/2015 1:40 PM AWNING ASSEMBLER from Last 3 Months or Most Recently Relevant to Health Maintenance Results * eGFR (02/12/2024 8:49 AM CDT) eGFR >90 >=60 mL/min/1. 73 m2 Comment: Interpretive Data Reference Interval Normal >/= 90 mL/min/1.73m2 Mildly decreased* 60 - 89 mL/min/1.73m2 Mildly to moderately decreased 45 - 59 mL/min/1.73m2 Moderately to severely decreased 30 - 44 mL/min/1.73m2 Severely decreased 15 - 29 mL/min/1.73m2 Kidney Failure < 15 mL/min/1.73m2 *Relative to young adult level Estimated glomerular [...] BLOOD ORDERABLES Final Result Performing Organization Address [facility] Co de Phone Number [facility] [address] [facility] Department [place] [address] * Hemoglobin A1c (02/03/2022 11:05 AM CDT) [facility] Signature Hgb A1C 5.6 4.0 - 5.6 % BAKARI Comment:Testing performed by : [address] [address] Estimated Average Glucose 114 mg/dL BAKARI Comment: The ADA recommends reporting an estimated Average Glucose (eAG) with all Hemoglobin A1c results using the equation derived from a study of 507 normal and diabetic adults. Minority populations were underrepresented and children were not included. (Diabetes Care 31:1288-1292, 2008). The eAG is not equivalent to a fasting glucose. Testing performed by: [address] [address] Blood 02/03/2022 11:0 5 AM CDT 02/03/2022 11:30 AM CDT Girish Freeman MD LAB BLOOD ORDERABLES Final Resu lt Performing Organization Address [facility] Co de Phone Number [facility] [address] [facility] [place] [address] * PSA screen (06/19/2021 7:47 AM AWNING ASSEMBLER) Pathologist [facility] PSA-Total 1.07 <=3.90 ng/mL BAKARI Comment: Interpretive Data AGE SEX REFERENCE INTERVAL 0 minutes-150 years Female None 0 minutes-49 years Male None 50-59 years Male 0-3.90 60-69 years Male 0-5.40 70-79 years Male 0-6.20 80-150 years Male 0-6.20 Current interpretive data last revised 2017. Testing performed by: [address] [address] Blood 06/19/2021 7:47 AM AWNING ASSEMBLER 06/19/2021 9:21 AM AWNING ASSEMBLER Girish Freeman MD LAB BLOOD ORDERABLES Final Resu lt BAKARI [address] [facility] [place] [address] * (ABNORMAL) Albumin Creatinine Ratio, Urine (06/19/2021 7:47 AM AWNING ASSEMBLER) Pathologist [facility] Albumin Ur <12.0 mg/L BAKARI Comment: Interpretive Data No reference range established. Current interpretive data was last revised 2018. Testing performed by: [address] [address] Creatinine Ur 20.1 mg/dL BAKARI Comment: Interpretive Data No reference range established. Current interpretive data was last revised 2018. Testing performed by: [address] [address] Albumin Creatinine Ratio, Ur <60(H) 1 - 29 mg/g BAKARI DALTON Comment:Testing performed by : [address] [address] Urine 06/19/2021 7:47 AM AWNING ASSEMBLER 06/19/2021 9:21 AM AWNING ASSEMBLER Girish Freeman MD LAB URINE ORDERABLES Final Resu lt BAKARI [address] [facility] Department [place] [address] * Lipid panel (06/19/2021 7:47 AM AWNING ASSEMBLER) Cholesterol 105 30 - 199 mg/dL BAKARI DALTON Comment: Interpretive Data Ages < or = 19 years Acceptable: <170 mg/dL Borderline high: 170-199 mg/dL High: >or= 200 mg/dL Ages > or = 20 years Desirable: <200 mg/dL Borderline high: 200-239 mg/dL High: >or= 240 mg/dL Literature References: 1. Expert Panel on Integrated Guidelines for Cardiovascular Health and Risk Reduction in Children and Adolescents. Pediatrics 2011;128:S213 2. NCEP Expert Panel. Circulation 2004;110:227 Current Interpretive Data was last revised on 2017. Testing performed by: [address] [address] Triglycerides 45 <=149 mg/dL BAKARI Comment: Interpretive Data Ages < or = 9 years Acceptable: <75 mg/dL Borderline high: 75-99 mg/dL High: >or= 100 mg/dL Ages 10 to 20 years Acceptable: <90 mg/dL Borderline high: 90-129 mg/dL High: >or= 130 mg/dL Ages > or = 20 years Desirable: <150 mg/dL Borderline high: 150-199 mg/dL High: 200-499 mg/dL Very high: >or= 499 mg/dL Literature References: 1. Expert Panel on Integrated Guidelines for Cardiovascular Health and Risk Reduction in Children and Adolescents. Pediatrics 2011;128:S213 2. NCEP Expert Panel. Circulation 2004;110:227 Current Interpretive Data was last revised on 2017. Testing performed by: [address] [address] HDL 67 >=40 mg/dL BAKARI Comment: Interpretive Data Ages < or = 19 years Acceptable: >45 mg/dL Borderline low: 40-45 mg/dL Low: <40 mg/dL Ages > or = 20 years Desirable: >or= 60 mg/dL Low: <40 mg/dL Literature References: 1. Expert Panel on Integrated Guidelines for Cardiovascular Health and Risk Reduction in Children and Adolescents. Pediatrics 2011;128:S213 2. NCEP Expert Panel. Circulation 2004;110:227 Current Interpretive Data was last revised on 2017. Testing performed by: [address] [address] LDL, calculated 29 <=129 mg/dL BAKARI Comment: Interpretive Data Ages < or = 19 years Acceptable: <110 mg/dL Borderline high: 110-129 mg/dL High: >or= 130 mg/dL Ages > or = 20 years Optimal: <100 mg/dL Near optimal: 100-129 mg/dL Borderline high: 130-159 mg/dL High: >160 mg/dL Literature References: 1. Expert Panel on Integrated Guidelines for Cardiovascular Health and Risk Reduction in Children and Adolescents. Pediatrics 2011;128:S213 2. NCEP Expert Panel. Circulation 2004;110:227 Current Interpretive Data was last revised on 2017. Testing performed by: [address] [address] Non-HDL Cholesterol 38 mg/dL BAKARI Comment: Interpretive Data Ages < or = 19 years Acceptable: <120 mg/dL Borderline high: 120-144 mg/dL High: >145 mg/dL Ages > or = 20 years When triglycerides are >200 mg/dL, Non-HDL cholesterol is a secondary target of therapy with treatment goals that are 30 mg/dL greater than the LDL cholesterol target. Literature References: 1. Expert Panel on Integrated Guidelines for Cardiovascular Health and Risk Reduction in Children and Adolescents. Pediatrics 2011;128:S213 2. NCEP Expert Panel. Circulation 2004;110:227 Current Interpretive Data was last revised on 2017. Testing performed by: [address] [address] Chol/HDL ratio 2 BAKARI Comment:Testing performed by : [address] [address] Blood 06/19/2021 7:47 AM AWNING ASSEMBLER 06/19/2021 9:21 AM AWNING ASSEMBLER Girish Freeman MD LAB BLOOD ORDERABLES Final Resu lt Performing Organization Address [facility]/ZIP Co de Phone Number BAKARI [address] [facility] Department [place] [address] * COLONOSCOPY IMAGES (06/04/2015) Anatomical Region Laterality Modality Other Narrative 06/04/2015 Ordered by an unspecified provider. Historical Provider GI PROCEDURE ORDERABLES F inal Result * Serum Hepatitis panel (05/15/2015 1:40 PM AWNING ASSEMBLER) HBV surface ag Negative NEG HISTO RICAL RESULTS HCV ab Negative NEG HISTORICAL RESULTS Comment: Interpretive Data If confirmation is required, call Laboratory Customer Service to request sample to be sent to [facility] for Hepatitis C Virus (HCV) RNA Detection and Quantitation by Real-Time Reverse Day Habilitation Supervisor-PCR (RT-PCR). Current interpretive data was last revised [...] revised on 2007. Serum 05/15/2015 1:40 PM AWNING ASSEMBLER Mate Abimael ADKINS LAB BLOOD ORDERABLES Final Resul t Performing Organization Address [facility] Co de Phone Number HISTORICAL RESULTS from Last 3 Months or Most Recently Relevant to Health Maintenance Insurance [facility] Care Teams Cctv Technician Relationship Specialty Start Date End Date Arie Rodrigues MD [address] [place] [address] [facility] [place] [place] [address] PCP - General Family Medicine 02/12/24 Girish Freeman MD [address] [place] [address] [place] [address] Family Medicine 03/15/20 Franky Pritchard MD [address] [facility] [place] [address] Consulting Physician Hematology and Oncology 07/19/20 Franky Pritchard MD [address] [facility] [place] [address] Medical Oncologist/Hematologis t Hematology and Oncology 05/26/22
--- OUTSIDE RECORDS SUMMARY | 2024-10-12 01:43 | XMS_ITS | Clinical Summary ---
Author Organization [facility] Address [address] [place] [id number] Care Team Providers Care Crusher Plant Operator Name Role Phone Girish Freeman MD Unavailable [phone] Franky Pritchard MD Unavailable [phone] Franky Pritchard MD Unavailable [phone] Arie Rodrigues MD Primary Care Provider [phone] Allergies Active Allergy Reactions Criticality Noted Date [...] % cream every 12 hours Activ e Carbon Digital Ultra Blue Test Strip strip USE TO [...] Date Site/Laterality Comments COLONOSCOPY 04/12/2015 - 04/11/2016 [facility] Medical History Medical History Date Comments Diabetes [...] Average Number of Drinks Not on file 04/26/2 021 Frequency of Binge Drinking Not on file 07/12 Personal Safety Answer Date Recorded Have you ever been in or are you currently in a harmful physical or emotional relationship or is someone making you feel afraid or unsafe? Denies 02/12/2024 Sex and Gender Information Value Date Recorded Sex Assigned at Not on file Legal Sex Male 9:22 PM FINANCE DIRECTOR Gender Identity Male 03/15/2020 1:20 PM FINANCE DIRECTOR Sexual Orientation Not on file Obstetrics History [...] Dilated Eye Exam 1967 Foot Exam 1967 Hepatitis B Screening 12/28/1985 Regular Well Visit/Exam 18-64 12/28/1985 Pneumococcal vaccine <65 (1 of 2 - PCV) 12/28/1986 Zoster Vaccine (1 of 2) 12/28/2017 Albumin Creatinine Ratio, Urine 06/19/2022 Lipid Panel 06/19/2022 06/19/2021 Hemoglobin A1C 08/04/2022 02/03/2022, 09/0 09/2021, 09/30/2021, Additional history exists Prostate Cancer Screening-PSA 06/20/2023 06/19/2021, 12/04/2020 Covid-19 Vaccine (2023-2 5 season) 2023 10/03/2021, 10/03/2021, 09/17/2021, Additional history exists Influenza Vaccine (#1) 2024 02/14/2021, 2019 eGFR 02/11/2025 02/12/2024, 05/13, 03/23/2022, Additional history exists Colon Cancer Screening-Colonoscopy 06/04/20252015, 06/04/2015 DTaP/Tdap/Td Vaccine (2 - Td or Tdap) 06/06/2031 06/06/2021 Hepatitis C Screening Completed 05/15/2015 Procedures Procedure Name Priority Date/Time Associated Diagnosis Comments EGFR STAT 02/12/2024 8:49 AM CDT HEMOGLOBIN A1C Routine 02/03/2022 11:05 AM CDT LIPID PANEL Routine 06/19/2021 7:47 AM FINANCE DIRECTOR ALBUMIN CREATININE RATIO, URINE Routine 06/19/2021 7:47 AM FINANCE DIRECTOR PSA SCREEN Routine 06/19/2021 7:47 AM FINANCE DIRECTOR COLONOSCOPY IMAGES 06/04/2015 SERUM HEPATITIS PANEL Routine 05/15/2015 1:40 PM FINANCE DIRECTOR from Last 3 Months or Most [...] BLOOD ORDERABLES Final Result Performing Organization Address [facility] Co de Phone Number [place] [phone] [facility] [email or web address] [address] * Hemoglobin A1c (02/03/2022 11:05 AM CDT) Pathologist [facility] Hgb A1C 5.6 4.0 - 5.6 % BAKARI Comment:Testing performed by : [address] [address] Estimated Average Glucose 114 mg/dL BAKARI Comment: The ADA recommends reporting an estimated Average Glucose (eAG) with all Hemoglobin A1c results using the equation derived from a study of 507 normal and diabetic adults. Minority populations were underrepresented and children were not included. (Diabetes Care 31:8421-2035, 2008). The eAG is not equivalent to a fasting glucose. Testing performed by: [address] [address] Blood 02/03/2022 11:0 5 AM CDT 02/03/2022 11:30 AM CDT us Girish Freeman MD LAB BLOOD ORDERABLES Final Resu lt Performing Organization Address [facility] Co de Phone Number [facility] [address] [facility] [employer] [address] * PSA screen (06/19/2021 7:47 AM FINANCE DIRECTOR) Pathologist [facility] PSA-Total 1.07 <=3.90 ng/mL BAKARI Comment: Interpretive Data AGE SEX REFERENCE INTERVAL 0 minutes-150 years Female None 0 minutes-49 years Male None 50-59 years Male 0-3.90 60-69 years Male 0-5.40 70-79 years Male 0-6.20 80-150 years Male 0-6.20 Current interpretive data last revised 2017. Testing performed by: [address] [address] Blood 06/19/2021 7:47 AM FINANCE DIRECTOR 06/19/2021 9:21 AM FINANCE DIRECTOR Girish Freeman MD LAB BLOOD ORDERABLES Final Resu lt Performing Organization Address City/[facility] Co de Phone Number BAKARI [address] [facility] [employer] [place] [address] * (ABNORMAL) Albumin Creatinine Ratio, Urine (06/19/2021 7:47 AM FINANCE DIRECTOR) Albumin Ur <12.0 mg/L BAKARI Comment: Interpretive Data No reference range established. Current interpretive data was last revised 2018. Testing performed by: [address] [address] Creatinine Ur 20.1 mg/dL BAKARI Comment: Interpretive Data No reference range established. Current interpretive data was last revised 2018. Testing performed by: [address] [address] Albumin Creatinine Ratio, Ur <60(H) 1 - 29 mg/g BAKARI Comment:Testing performed by : [address] [address] Urine 06/19/2021 7:47 AM FINANCE DIRECTOR 06/19/2021 9:21 AM FINANCE DIRECTOR Girish Freeman MD LAB URINE ORDERABLES Final Resu lt Performing Organization Address [facility] Co de Phone Number [facility] [address] [facility] [employer] [address] * Lipid panel (06/19/2021 7:47 AM FINANCE DIRECTOR) Cholesterol 105 30 - 199 mg/dL BAKARI Comment: Interpretive Data Ages < [...] last revised on 2017. Testing performed by: [address] [address] Triglycerides 45 <=149 mg/dL BAKARI Comment: Interpretive [...] last revised on 2017. Testing performed by: [address] [address] HDL 67 >=40 mg/dL BAKARI Comment: Interpretive [...] last revised on 2017. Testing performed by: [address] [address] LDL, calculated 29 <=129 mg/dL BAKARI Comment: [...] last revised on 2017. Testing performed by: [address] [address] Non-HDL Cholesterol 38 mg/dL BAKARI DALTON Comment: [...] last revised on 2017. Testing performed by: [address] [address] Chol/HDL ratio 2 BAKARI Comment:Testing performed by : [address] [address] Blood 06/19/2021 7:47 AM FINANCE DIRECTOR 06/19/2021 9:21 AM FINANCE DIRECTOR us Girish Freeman MD LAB BLOOD ORDERABLES Final Resu lt BAKARI [address] [facility] Department [place] [address] * COLONOSCOPY IMAGES (06/04/2015) Anatomical Region Laterality Modality Other Narrative 06/04/2015 Ordered by an unspecified provider. Historical Provider GI PROCEDURE ORDERABLES F inal Result * Serum Hepatitis panel (05/15/2015 1:40 PM FINANCE DIRECTOR) HBV surface ag Negative NEG HISTO RICAL RESULTS HCV ab Negative NEG HISTORICAL RESULTS Comment: Interpretive Data If confirmation is required, call Laboratory Customer Service to request sample to be sent to [facility] for Hepatitis C Virus (HCV) RNA Detection and Quantitation by Real-Time Reverse Hospice Fellow-PCR (RT-PCR). Current interpretive data was last revised [...] revised on 2007. Serum 05/15/2015 1:40 PM FINANCE DIRECTOR Darrell Varghese MD LAB BLOOD ORDERABLES Final Resul t HISTORICAL RESULTS from Last 3 Months or Most Recently Relevant to Health Maintenance Insurance [facility] Care Teams Crusher Plant Operator Relationship Specialty Start Date End Date Arie Rodrigues MD [address] [place] [address] [address] PCP - General Family Medicine 02/12/24 Girish Freeman MD [address] [place] [address] Family Medicine 03/15/20 Franky Pritchard MD [address] [facility] [place] [address] Consulting Physician Hematology and Oncology 07/19/20 Franky Pritchard MD [address] [facility] [place] [address] Medical Oncologist/Hematologis t Hematology and Oncology 05/26/22
--- OUTSIDE RECORDS SUMMARY | 2024-10-12 01:43 | XMS_ITS | Data Portability ---
Author Organization [facility] [email or web address], Main Office Address [address] [place] [address] Care Team Providers Care On Call Pharmacy Technician Name Role Phone GIRISH FREEMAN Primary Care Provider GIRISH FREEMAN Referring Provider Assessment Encounter Date Assessment Date Assessment LastModified by Organization Details LastModified Time 06/11/2022 06/11/2022 56 yo M with - S/P ED VISIT - ABDOMINAL STRAIN, resolved - CHRONIC NECK & LOW BACK PAIN - CERVICAL DDD - LUMBAR SPINAL STENOSIS - DDD L-SPINE - LOW BACK PAIN, CHRONIC - LUMBAR RADICULOPATHY - RT KIDNEY STONE (2 mm) - THROMBOCYTOPENIA, Persistent - HYPERBILIRUBINEMIA , Persistent - ELEVATED LFTs - ALLERGIC RHINITIS - CHRONIC STRESS - CHRONIC NECK PAIN - DM II - DIABETIC NEUROPATHY - B/L HAND TREMORS, chronic - HTN - B/L KNEE PAIN, Chronic - B/L CALCANEAL SPURS - B/L HEEL PAIN, Chronic - EPISTAXIS, Chronic - GERD - CHRONIC ABDO PAIN - DRY EYES, Chronic - SMOKER - H/O SHINGLES - H/O HYPERPROTEINEMIA HbA1c: 8.0(06/26/19) - 6.1(10/24/19) - 6.0(02/19/20) - 5.9(07/02/20) - 5.6(09/13/20) - 5.6(06/19/21) - 5.7(09/30/21) - 5.7(12/16/21) US thyroid: 02/26/22. X-ray skull: 12/03/21. MRI Rt knee wo: 08/06/21. Annual labs @ [facility]: 06/19/21. MRI C-spine wo: 06/04/21. X-ray b/l knees: 06/03/21. CXR: 04/12/21. MRI ankle wo: 02/24/21. MRI L-spine wo: 01/06/21. X-ray L-spine: 10/30/20. CT A&P wo: 10/27/20. Annual labs: 07/02/20. CXR: 06/27/20. X-ray b/l feet: 03/25/20. X-ray b/l ribs: 03/20/20. US Abdo: 08/10/19. X-ray Rt shoulder, C-spine: 07/20/19. Hepatitis panel: 07/10/19. Annual labs: 06/26/19. X-ray b/l knees, foot & Rt thigh: 06/06/19. CXR: 06/06/19. D/w pt in detail about his conditions, recent labs & imagines and further plan of care. ED records reviewed with pt. All questions answered for the pt. Advised pt to talk with his Pain doctor and Spine surgeon about his chronic neck and back pain concerns. Meds as directed. Advised pt to avoid any Aspirin containing products. Advised pt to f/u with his Hemat at [place] for his Thrombocytopenia and high bilirubin. Diet and exercise explained in detail. BP & DM diary education given and call us if any concerns. Pt is currently smoking about 0.5 ppd. Encouraged pt to quit smoking. Discussed in detail about different options to quit smoking including Chantix, Wellbutrin, Nicotine patch, Nicotine gum/lozenges etc. Pt got s/e from Chantix. Wellbutrin is not covered. Patches started. Educated pt about alarming symptoms to monitor at home and call us back or get checked in ED. Pt verbalized understanding it. F/u with Neuro as per schedule. Cont f/u with Spine surgeon at [place] as per schedule. Cont f/u with Pain clinic at [place] as per schedule. Cont f/u with PT as per schedule. Cont f/u with Uro at [place] as per schedule. Cont f/u with GI as per schedule. Cont f/u with Hemat at [place] as per schedule. Cont f/u with ENT as per schedule. Cont f/u with [facility] as per schedule. Cont f/u with Ortho as per schedule. Cont f/u with Ophtho as per schedule. Advised pt to avoid any Acetaminophen and alcohol in future. Offered to refer to Auxiliary Operator; but pt declined. Pt got severe diarrhea with Metformin. Pt got s/e from Metoprolol, Chantix, Meloxicam. Pt's insurance did not approve Wellbutrin. HM: Colonoscopy - 4 yrs ago, normal as per pt. Cont f/u with GI as per schedule. Flu - 03/02. Tdap, Pneumo, Shingrix - At [facility]. F/u as directed. Annual labs in 07/02. [email or web address] Not available 06/11/2022 16:32:47 07/29/2022 07/29/2022 56 yo M with - CHRONIC NECK & LOW BACK PAIN - CERVICAL DDD - LUMBAR SPINAL STENOSIS - DDD L-SPINE - LOW BACK PAIN, CHRONIC - LUMBAR RADICULOPATHY - RT KIDNEY STONE (2 mm) - THROMBOCYTOPENIA, Persistent - HYPERBILIRUBINEMIA , Persistent - ELEVATED LFTs - ALLERGIC RHINITIS - CHRONIC STRESS - CHRONIC NECK PAIN - DM II - DIABETIC NEUROPATHY - B/L HAND TREMORS, chronic - HTN - B/L KNEE PAIN, Chronic - B/L CALCANEAL SPURS - B/L HEEL PAIN, Chronic - EPISTAXIS, Chronic - GERD - CHRONIC ABDO PAIN - DRY EYES, Chronic - SMOKER - H/O SHINGLES - H/O HYPERPROTEINEMIA HbA1c: 8.0(06/26/19) - 6.1(10/24/19) - 6.0(02/19/20) - 5.9(07/02/20) - 5.6(09/13/20) - 5.6(06/19/21) - 5.7(09/30/21) - 5.7(12/16/21) US thyroid: 02/26/22. X-ray skull: 12/03/21. MRI Rt knee wo: 08/06/21. Annual labs @ [facility]: 06/19/21. MRI C-spine wo: 06/04/21. X-ray b/l knees: 06/03/21. CXR: 04/12/21. MRI ankle wo: 02/24/21. MRI L-spine wo: 01/06/21. X-ray L-spine: 10/30/20. CT A&P wo: 10/27/20. Annual labs: 07/02/20. CXR: 06/27/20. X-ray b/l feet: 03/25/20. X-ray b/l ribs: 03/20/20. US Abdo: 08/10/19. X-ray Rt shoulder, C-spine: 07/20/19. Hepatitis panel: 07/10/19. Annual labs: 06/26/19. X-ray b/l knees, foot & Rt thigh: 06/06/19. CXR: 06/06/19. D/w pt in detail about his conditions, recent labs & imagines and further plan of care. All questions answered for the pt. Advised pt to talk with his Pain doctor and Spine surgeon about his chronic neck and back pain concerns. Paperwork filled out and will be faxed. Meds as directed. Advised pt to avoid any Aspirin containing products. Advised pt to f/u with his Hemat at [place] for his Thrombocytopenia and high bilirubin. Diet and exercise explained. BP & DM diary education given and call us if any concerns. Pt is currently smoking about 0.5 ppd. Encouraged pt to quit smoking. Discussed in detail about different options to quit smoking including Chantix, Wellbutrin, Nicotine patch, Nicotine gum/lozenges etc. Pt got s/e from Chantix. Wellbutrin is not covered. Patches started. Educated pt about alarming symptoms to monitor at home and call us back or get checked in ED. Pt verbalized understanding it. F/u with Neuro as per schedule. Cont f/u with Spine surgeon at [place] as per schedule. Cont f/u with Pain clinic at [place] as per schedule. Cont f/u with PT as per schedule. Cont f/u with Uro at [place] as per schedule. Cont f/u with GI as per schedule. Cont f/u with Hemat at [place] as per schedule. Cont f/u with ENT as per schedule. Cont f/u with [facility] as per schedule. Cont f/u with Ortho as per schedule. Cont f/u with Ophtho as per schedule. Advised pt to avoid any Acetaminophen and alcohol in future. Offered to refer to Auxiliary Operator; but pt declined. Pt got severe diarrhea with Metformin. Pt got s/e from Metoprolol, Chantix, Meloxicam. Pt's insurance did not approve Wellbutrin. HM: Colonoscopy - 4 yrs ago, normal as per pt. Cont f/u with GI as per schedule. Flu - 03/02. Tdap, Pneumo, Shingrix - At [facility]. F/u in few weeks as directed. Annual labs in 07/02. Not available 07/29/2022 13:03:34 Plan of Treatment Reminders Order Date Submit Date Provider Last Modified By Organization Details Last Modified Time Details Appointments None recorded. Lab None recorded. Referral pain management referral - *Please call patient to schedule* 2022 023 [email or web address] Fannie Lawrence MD, [facility], [address], [place], [address], 08:05:16 Procedures None recorded. Surgeries None recorded. Imaging None recorded. Medication Orders losartan 25 mg tablet 2022 023 [id number], [address] [place], [address], 3 12:08:11 Jardiance 10 mg tablet 2022 023 [id number], [address] [place], [address], 3 12:08:10 losartan 25 mg tablet 2022 023 [id number], [address] [place], [address], 3 16:33:48 Jardiance 10 mg tablet 2022 023 [id number], [address] [place], [address], 3 16:33:48 Patient TargetsNo targets recorded. Patient InstructionsNo instructions recorded. Reason for Referral Pain Management Referral for Chronic low back pain *Please call patient to schedule* Referring Physician: Girish Freeman, Family Medicine, Encounter Date: 07/29/2022 Results Created Date Observation Date Name Description Value Unit Range Abnormal Flag Note LastModifiedBy Organization Detail LastModifiedTime 11/19/19 22 11/18/2021 urina lysis , dipst ick Leukocytes (reference range: negative yuri/ l) Negati ve Not Available [facility] [address] [place] [address], [phone], 11/18/2021 09:56:34 11/19/19 22 11/18/2021 urina lysis , dipst ick Nitrite (reference rage: negative mg/dl) negati ve Not Available [facility] [address] [place] [address], [phone], 11/18/2021 09:56:34 11/19/19 22 11/18/2021 urina lysis , dipst ick Urobilinogen (reference range: 0.2-1 mg/dl) 0.2 Not Available [facility] [address], [address], 11/18/2021 09:56:34 11/19/19 22 11/18/2021 urina lysis , dipst ick Protein (reference range: negative mg/dl) Negati ve Not Available [address], [address], 11/18/2021 09:56:34 11/19/19 22 11/18/2021 urina lysis , dipst ick pH (reference range: 5-7) 5.0 Not Available [facility], [address], 11/18/2021 09:56:34 11/19/19 22 11/18/2021 urina lysis , dipst ick Blood (reference range: negative Butch/ l) Negati ve Not Available [address], [address], 11/18/2021 09:56:34 11/19/19 22 11/18/2021 urina lysis , dipst ick Specific [place] (reference range: 1.005-1.030) 1.005 Not Available [facility] [address] [place], [address], 11/18/2021 09:56:34 11/19/19 22 11/18/2021 urina lysis , dipst ick Ketone (reference range: negative mg/dl) Negati ve Not Available [facility] [address] [place] [address], [address], 11/18/2021 09:56:34 11/19/19 22 11/18/2021 urina lysis , dipst ick Bilirubin (reference range: negative mg/dl) Negati ve Not Available [address], [address], 11/18/2021 09:56:34 11/19/19 22 11/18/2021 urina lysis , dipst ick Glucose (reference range: negative mg/dl) Negati ve Not Available [facility] [address] [place] [address], [address], 11/18/2021 09:56:34 11/19/19 22 11/18/2021 urina lysis , dipst ick Appearance Clear Not Available [facility] [address] [place] [address], [phone], 11/18/2021 09:56:34 11/19/19 22 11/18/2021 urina lysis , dipst ick Color Pale Yellow Not Available [facility] [address] [place] [address], [phone], 11/18/2021 09:56:34 12/04/19 22 12/03/2021 XR, skull , 4 or more view [facility] [address] [place] [address] [phone] David wong Name: QUOC RAUSCH ion #: [id number] Sex: M : 1965 4 Locati on: RAD Attend ing Physic terrie: PATRICIA FREEMAN Orderi ng Physic terrie: PATRICIA FREEMAN Exam Date: 8:58 AM Exam Name: XR SKULL 4V+ Admitt ing Diagno sis(es ): RADIOL OGY REPORT - FINAL EXAM: XR SKULL 4V+ HISTOR Y: disord er of the skin COMPAR ROBERT: None. TECHNI QUE: AP, Home , and latera l views of the skull were perfor med. FINDIN GS: No eviden ce of a fractu re destru ctive proces s or malali gnment . Benign pineal gland calcif icatio n noted. IMPRES ZOË: No acute proces s. If sympto ms persis t, MRI or CT will prove benefi cial. Page 1 of 2 [facility] David wong Name: QUOC RAUSCH Access ion #: [id number] Sex: M : 1965 4 Exam Date: 8:58 AM Exam Name: XR SKULL 4V+ Admitt ing Diagno sis(es ): Create d and electr onical ly signed by: Elmer rodriguez MD Signed Date: 10:10 AM (CT) Dictat ed by: Elmer rodriguez MD DD: 10:10 AM (CT) DT: 10:10 AM (CT) Page 2 of 2 [id number] [facility] (Imaging) [address] [place], [address], 06/10/2022 02:34:18 02/28/20 22 02/26/2022 US, thyro id No observ ation record ed. [id number] [facility] [address] [place], [address], 06/10/2022 02:34:18 05/30/19 23 05/30/2022 CT, abdom en + pelvi s, w/ contr ast No observ ation record ed. [email or web address] [place] [address], [place], [address], 06/11/2022 16:15:41 05/30/19 23 05/30/2022 XR, chest No observ ation record ed. [place] [id number] [facility] [address], [place], [address], 06/11/2022 16:15:41 Result Notes None recorded. Problems Name Problem SNOMED Code Status Onset Date Resolution Date Notes Provider Name and Address Organization Details Recorded Time Open wound of left lower leg 44824575758 057748 Active 2020 Not Available [facility] 3 02:29:47 Chronic neck pain 97717284666 07 Active 2019 Not Available [facility] 3 02:29:47 Bilateral plantar fasciitis 53831173001 624685 Active 2019 Not Available [facility] 3 02:29:47 Bilateral knee pain Active 2019 Not Available [facility] 3 02:29:47 Burn of foot 96403110 Active 2020 Not Available [facility] 3 02:29:47 Folliculi tis 22993349 Active 2021 Not Available [facility] 3 02:29:47 Hyperbili rubinemia 75548801 Active 2019 Not Available [facility] 3 02:29:47 Pain in both feet 20662208459 637543 Active 2019 Not Available [facility] 3 02:29:48 Bilateral heel pain 69653225061 896846 Active 2019 Not Available [facility] 3 02:29:48 Bilateral bone spur of calcaneum 34817969964 194786 Active 2019 Not Available [facility] 3 02:29:48 Chondroma lacia of right patella 88139107698 488395 Active 2021 Not Available [facility] 3 02:29:48 Dry skin 18621657 Active 2020 Not Available [facility] 3 02:29:48 Spinal stenosis of lumbar region 33595786 Active 2020 Not Available [facility] 3 02:29:48 Fall Active 2021 Not Available [facility] 3 02:29:48 Anxiety disorder 358560873 Active 2020 Not Available [facility] 3 02:29:48 Abdominal pain 44751289 Active 2019 Not Available [facility] 3 02:29:48 Seasonal allergic conjuncti vitis 792518573 Active 2019 Not Available [facility] 3 02:29:48 Seasonal allergic conjuncti vitis 773139649 Completed 201907/02/2020 Not Available [facility] 3 02:29:49 Overweigh t 547169132 Active 2019 Not Available [facility] 3 02:29:49 Scalp folliculi tis 828032635 Active 2021 Not Available [facility] 3 02:29:49 Lumbar spondylos is 967891633 Active 2020 Not Available [facility] 3 02:29:49 Bleeding from nose 602997027 Active 2019 Not Available [facility] 3 02:29:49 Tremor 81695030 Active 2021 Not Available [facility] 3 02:29:49 Degenerat ion of lumbar intervert ebral disc 57620083 Active 2020 Not Available [facility] 3 02:29:49 Gastroeso phageal reflux disease without esophagit is 928108214 Active 2019 Not Available [facility] 3 02:29:49 Sore throat 049431441 Active 2021 Not Available [facility] 3 02:29:49 Adult health examinati on Active 2021 Not Available [facility] 3 02:29:49 Chronic low back pain 559803924 Active 2020 Not Available [facility] 3 02:29:50 Abrasion of skin of lower limb 362451529 Active 2021 Not Available [facility] 3 02:29:50 Rib pain 430613361 Active 2019 Not Available [facility] 3 02:29:50 Ear problem 651527636 Completed 201907/02/2020 Not Available [facility] 3 02:29:50 Thrombocy topenic disorder 027146051 Active 2020 Not Available [facility] 3 02:29:50 Screening for disorder Active 2021 Not Available [facility] 3 02:29:50 Type 2 diabetes mellitus without complicat ion 075119628 Active 2019 Not Available [facility] 3 02:29:50 Pain in right foot 20618284986 9107 Active 2020 Not Available [facility] 3 02:29:50 Pain of right thigh 89466164824 9107 Active 2019 Not Available [facility] 3 02:29:51 Bronchiti s 04967450 Active 2021 Not Available [facility] 3 02:29:51 Seasonal allergic rhinitis 181128266 Active 2019 Not Available [facility] 3 02:29:51 Sinusitis 19430597 Active 2021 Not Available [facility] 3 02:29:51 Hyperprot einemia 93122003 Active 2019 Not Available [facility] 3 02:29:51 Hypertens adela disorder 91898784 Active 2019 Not Available [facility] 3 02:29:51 Diabetic periphera l neuropath y 415875127 Active 2019 Not Available [facility] 3 02:29:51 Uncontrol led type 2 diabetes mellitus 699505760 Completed 201903/20/2020 Not Available [facility] 3 02:29:52 Pain of bilateral knee joints 21443016161 4104 Active 2021 Not Available [facility] 3 02:29:52 Dysuria 93421407 Active 2021 Not Available [facility] 3 02:29:52 Allergic rhinitis 16381179 Active 2020 Not Available [facility] 3 02:29:52 Liver enzymes level above reference range 115645039 Active 2019 Not Available [facility] 3 02:29:52 Diabetes mellitus 24558065 Active 2019 Not Available [facility] 3 02:29:52 Posterior rhinorrhe a 49600914 Active 2021 Not Available [facility] 3 02:29:52 Smoker 24294210 Active 2019 Not Available [facility] 3 02:29:53 Skin lesion 18486030 Active 2021 Not Available [facility] 3 02:29:53 Kidney stone 66241918 Active 2020 Not Available [facility] 3 02:29:53 Strain of abdominal muscle 964572920 Active 2022 Girish Freeman MD [address] [place] [address], [phone] , [facility] 3 16:19:48 Notes:back and neck problems Problem Notes None recorded. Medical Equipment None Reported. Allergies Allergen ID Allergen Name Allergen Category Reaction Reaction Severity Criticality Documentation Date Start Date Code Code System Note Provider Name and Address Organization Details Recorded Time 3192 metoprolo l Not available headache moderate Not available 06/10/2022 6918 RxNorm Not Available [facility] 3 02:33:59 3193 metformin medicatio n diarrhea severe Not available 06/10/2022 6809 RxNorm Not Available [facility] 3 02:33:59 3194 meloxicam medicatio n chest pain Not available Not available 06/10/2022 19890 RxNorm Not Available [facility] 3 02:33:59 3195 Advil medicatio n Not available Not available Not available 06/10/2022 26653 0 RxNorm Not Available [facility] 3 02:33:59 3196 Product containin g angiotens in-conver ting enzyme inhibitor (product) medicatio n cough severe Not available 06/10/2022 63973 009 SNOMED Not Available [facility] 3 02:33:59 3197 Chantix medicatio n confusion severe Not available 06/10/2022 42373 0 RxNorm Not Available [facility] 3 02:33:59 Medications Name Sig Start Date Stop Date Status Note LastModified by Organization Details LastModified Time losartan 50 mg tablet TAKE 1 TABLET BY MOUTH EVERY DAY 09/04 completed Not Available Not Available Not Available cyclobenzap rine 10 mg tablet TAKE 1 TABLET BY MOUTH EVERY 12 HOURS NEEDED active Not Available Not Available No t Available amoxicillin 500 mg capsule TAKE 1 CAPSULE BY MOUTH EVERY 8 HOURS FOR 7 DAYS 06/11 completed Not Available Not Available Not Available silver sulfadiazin e 1 % topical cream APPLY A 1/16 INCH (1.5 MM) THICK LAYER TO ENTIRE BURN AREAS BY TOPICALRO LATA 2 TIMES PER DAY 06/23 completed Not Available Not Available Not Available bupropion HCl SR 150 mg tablet,12 hr sustained-r elease Take 1 tablet every 12 hours by oral route as directed for 30 days. active Not Available Not Available No t Available promethazin e-DM 6.25 mg-15 mg/5 mL oral syrup 05/23 completed Not Available Not Available Not Available diclofenac 3 % topical gel APPLY TO LESION AREAS TWICE DAILY active Not Available Not Available No t Available azelastine 0.05 % eye drops INSTILL 1 DROP INTO AFFECTED EYE TWICE A DAY active Not Available Not Available No t Available prednisone 10 mg tablet TAKE 4 TABLETS WITH FOOD ON DAYS 1 AND 2, THEN 2 TABS ON DAYS 3 AND 4, 1 TAB ON DAYS 5,6, AND 7. active Not Available Not Available No t Available nicotine 14 mg/24 hr daily transdermal patch APPLY 1 PATCH(ES) EVERY DAY BY TRANSDERM AL ROUTE DIRECTED FOR 30 DAYS. 07/29 completed Not Available Not Available Not Available clindamycin HCl 300 mg capsule TAKE 1 CAPSULE BY MOUTH EVERY 6 HOURS active Not Available Not Available No t Available ammonium lactate 12 % lotion APPLY SMALL AMOUNT TO AFFECTED AREA TWICE A DAY NEEDED active Not Available Not Available No t Available cetirizine 10 mg tablet TAKE 1 TABLET BY MOUTH EVERY MORNING NEEDED active Not Available Not Available No t Available azithromyci n 250 mg tablet TAKE 2 TABLETS BY MOUTH TODAY, THEN TAKE 1 TABLET DAILY FOR 4 DAYS 06/11 completed Not Available Not Available Not Available lidocaine 5 % topical cream Apply 1 applicati on twice a day by topical route as needed for 30 days. 12/18 completed Not Available Not Available Not Available benzonatate 200 mg capsule TAKE 1 CAPSULE BY MOUTH EVERY 8 HOURS NEEDED active Not Available Not Available No t Available hydrocodone 5 mg-acetamin ophen 325 mg tablet TAKE 1 TABLET BY MOUTH EVERY 6 HOURS NEEDED FOR 14 DAYS -MAY FILL 06/16/22 active Not Available Not Available No t Available meloxicam 15 mg tablet TAKE 1/2 TABLET BY MOUTH EVERY 12 HOURS NEEDED FOR 30 DAYS 12/11 completed Not Available Not Available Not Available polyvinyl alcohol 1.4 % eye drops INSTILL 1 DROP INTO BOTH EYES 4 TIMES A DAY active Not Available Not Available No t Available famotidine 40 mg tablet TAKE 1 TABLET BY MOUTH EVERY DAY AT BEDTIME DIRECTED active Not Available Not Available No t Available bupivacaine HCl 0.5 % (5 mg/mL) injection solution Take 40 mg by injection route. 09/18 completed Not Available Not Available Not Available prednisone 20 mg tablet 05/23 completed Not Available Not Available Not Available lidocaine 4 % topical cream Apply 1 applicati on twice a day by topical route as needed for 30 days. active Not Available Not Available No t Available acetaminoph en 300 mg-codeine 30 mg tablet 05/23 completed Not Available Not Available Not Available tramadol 50 mg tablet TAKE 1 TAB PO Q 8HRS PRN PAIN 05/06 completed Not Available Not Available Not Available amoxicillin 500 mg tablet 500 MG ORALLY EVERY 8 HOURS active Not Available Not Available No t Available acyclovir 800 mg tablet TAKE 1 TABLET BY MOUTH EVERY 8 HOURS FOR 10 DAYS WHILE AWAKE. active Not Available Not Available No t Available Lacrisert 5 mg eye inserts INSERT 1 OPHTHALMI C INSERT INTO AFFECTED EYE(S) BY SUBCONJUN CTIVAL ROUTE ONCE DAILY active Not Available Not Available No t Available amoxicillin 875 mg tablet TAKE 1 TABLET BY MOUTH EVERY 12 HOURS FOR 10 DAYS 09/16 completed Not Available Not Available Not Available methocarbam ol 750 mg tablet PLEASE SEE ATTACHED FOR DETAILED DIRECTION S active Not Available Not Available No t Available Kenalog 10 mg/mL suspension for injection In office injection administe red by the provider 09/18 completed [facility]: [phone] Not Available Not Available Not Available baclofen 10 mg tablet TAKE 1 TABLET BY MOUTH EVERY 8-12 HOURS NEEDED active Not Available Not Available No t Available benzonatate 100 mg capsule Take 1 capsule every 8 hours by oral route as needed for 7 days. active Not Available Not Available No t Available hydrocodone 7.5 mg-acetamin ophen 325 mg tablet TAKE 1 TABLET BY MOUTH EVERY 8 HOURS NEEDED FOR PAIN active Not Available Not Available No t Available cephalexin 500 mg capsule TAKE 1 CAPSULE BY MOUTH THREE TIMES A DAY FOR 7 DAYS active Not Available Not Available No t Available metformin 1,000 mg tablet TAKE 1 TABLET BY MOUTH TWICE A DAY WITH MEALS active Not Available Not Available No t Available olopatadine 0.1 % eye drops INSTILL 1 DROP INTO AFFECTED EYE(S) BY OPHTHALMI C ROUTE 2 TIMES PER DAY NEEDED. active Not Available Not Available No t Available fluorometho lone 0.1 % eye drops,suspe nsion INSTILL 1 DROP IN BOTH EYES 4 TIMES DAILY FOR 7 DAYS. SHAKE BEFORE EACH USE. 07/29 completed Not Available Not Available Not Available lidocaine 5 % topical patch APPLY 1 PATCH BY TOPICAL ROUTE ONCE DAILY (MAY WEAR UP TO 12HOURS.) 04/18 completed Not Available Not Available Not Available losartan 25 mg tablet TAKE 1 TABLET BY MOUTH EVERY DAY IN THE MORNING 2022 active Not Available Not Available Not Avai lable nicotine 21 mg/24 hr daily transdermal patch APPLY 1 PATCH TO SKIN ONCE DAILY DIRECTED 09/16 completed Not Available Not Available Not Available gabapentin 300 mg capsule Take 1 capsule every 8 hours by oral route as directed for 30 days. active Not Available Not Available No t Available omeprazole 20 mg capsule,del ayed release TAKE 1 CAPSULE BY MOUTH EVERY DAY IN THE MORNING active Not Available Not Available No t Available diclofenac sodium 75 mg tablet,sergey yed release TAKE 1 TABLET BY MOUTH EVERY 12 HOURS NEEDED 04/18 completed Not Available Not Available Not Available montelukast 10 mg tablet TAKE 1 TABLET BY MOUTH EVERY DAY IN THE EVENING active Take as neede d. Not Available Not Available Not Available capsaicin 0.025 % topical cream APPLY TO AFFECTED AREA 2 TO 3 TIMES A DAY NEEDED active Not Available Not Available No t Available mupirocin 2 % topical ointment APPLY TO AFFECTED AREA TWICE A DAY FOR NEXT 2 WEEKS DIRECTED. active Not Available Not Available No t Available gabapentin 100 mg capsule TAKE 2 CAPSULE BY MOUTH EVERY 8 HOURS 03/13 completed Not Available Not Available Not Available azelastine 137 mcg (0.1 %) nasal spray SPRAY 2 SPRAYS BY INTRANASA L ROUTE TWICE A DAY FOR 30 DAYS active Not Available Not Available No t Available levofloxaci n 500 mg tablet TAKE 1 TABLET BY MOUTH EVERY DAY FOR 10 DAYS active Not Available Not Available No t Available methylpredn isolone 4 mg tablets in a dose pack 05/23 completed Not Available Not Available Not Available albuterol sulfate HFA 90 mcg/actuati on aerosol inhaler INHALE 2 PUFFS EVERY 6 HOURS NEEDED FOR 10 DAYS active Not Available Not Available No t Available ondansetron 4 mg disintegrat ing tablet DISSOLVE 1 TABLET ON THE TONGUE EVERY 6 TO 8 HOURS NEEDED FOR 5 DAYS active Not Available Not Available No t Available cefdinir 300 mg capsule TAKE 1 CAPSULE BY MOUTH EVERY 12 HOURS active Not Available Not Available No t Available losartan 100 mg tablet TAKE 1/2 TABLET BY MOUTH ONCE A DAY active Not Available Not Available No t Available fluticasone propionate 50 mcg/actuati on nasal spray,suspe nsion SPRAY 2 SPRAYS IN EACH NOSTRIL ONCE DAILY NEEDED active Not Available Not Available No t Available doxycycline hyclate 100 mg tablet Take 1 tablet twice a day by oral route as directed for 10 days. active Not Available Not Available No t Available amoxicillin 875 mg-potassiu m clavulanate 125 mg tablet Take 1 tablet every 12 hours by oral route for 10 days. 05/29 completed Not Available Not Available Not Available nabumetone 500 mg tablet TAKE 1 TABLET BY MOUTH EVERY 12 HOURS NEEDED 07/29 completed Not Available Not Available Not Available amoxicillin 500 mg-potassiu m clavulanate 125 mg tablet Take 1 tablet twice a day for 10 days 05/29 completed Not Available Not Available Not Available nicotine 7 mg/24 hr daily transdermal patch APPLY 1 PATCH(ES) EVERY DAY BY TRANSDERM AL ROUTE DIRECTED FOR 30 DAYS. 10/29 completed Not Available Not Available Not Available neomycin-po lymyxin-hyd rocort 3.5 mg-10,000 unit/mL-1 % ear drops,susp INSTILL 3 DROPS INTO AFFECTED EAR(S) BY OTIC ROUTE 3 TIMES PER DAY active Not Available Not Available No t Available Arthritis Pain Relief (capsaicin) 0.075 % topical cream APPLY TO AFFECTED AREA TWICE A DAY NEEDED active Not Available Not Available No t Available Alcohol Prep Pads USE DIRECTED 1-2 TIMES PER DAY active Not Available Not Available No t Available metoprolol tartrate 25 mg tablet TAKE 1 TABLET BY MOUTH EVERY 12 HOURS DIRECTED active Not Available Not Available No t Available Chantix 1 mg tablet TAKE 1 TABLET BY MOUTH TWICE A DAY DIRECTED active Not Available Not Available No t Available diclofenac 1 % topical gel APPLY 2 GRAMS 3 TIMES A DAY NEEDED FOR MODERATE PAIN 06/11 completed Not Available Not Available Not Available OneTouch Delica Lancets 33 gauge USE NEEDED ONCE A DAY TO CHECK SUGAR IF ANY SYMPTOMS. active Not Available Not Available No t Available Artificial Tears (petrolatum /mineral oil) 83 %-15 % eye ointment INSERT 1/4 IN STRIP OF OINTMENT INSIDE LOWER LID BEFORE BED active Not Available Not Available No t Available OneTouch Verio test strips USE TO TEST 1-2 TIMES PER DAY NEEDED. active Not Available Not Available No t Available Chantix Starting Month Box 0.5 mg (11)-1 mg (42) tablets in dose pack TAKE DIRECTED PER PACKAGE INSTRUCTI ONS active Not Available Not Available No t Available lidocaine 5 % topical ointment APPLY TO AFFECTED AREA TWICE A DAY NEEDED active Not Available Not Available No t Available lidocaine HCl 4 % topical cream APPLY 1 APPLICATI ON TWICE A DAY BY TOPICAL ROUTE NEEDED FOR 30 DAYS. active Not Available Not Available No t Available Jardiance 10 mg tablet TAKE 1/2 TABLET BY MOUTH EVERY DAY IN THE MORNING 2022 active Not Available Not Available Not Avai lable naloxone 4 mg/actuatio n nasal spray DIRECTED NASALLY 1 DAY active Not Available Not Available No t Available OneTouch Verio Flex Meter USE DIRECTED. active Not Available Not Available No t Available Xiidra 5 % eye drops in a dropperette INSTILL 1 DROP INTO BOTH EYES BY OPHTHALMI C ROUTE 2 TIMES PER DAY APPROXIMA TELY 12 HOURS APART 09/18 completed Not Available Not Available Not Available OneTouch Ultra Blue Test Strip USE TO TEST 3 4 TIMES PER DAY active Not Available Not Available No t Available 1st Medx-Patch With Lidocaine 4 %-20 %-0.025 %-5 % topical 10/29 completed Not Available Not Available Not Available Flublok Quad (PF) 180 mcg (45 mcg x 4)/0.5 mL IM syringe active Not Available Not Available N ot Available Vitals Date Recorded Body height Body mass index (BMI) Body weight Body temperature Respiratory rate Heart rate Oxygen saturation Oxygen saturation in Arterial blood by Pulse oximetry Systolic blood pressure Diastolic blood pressure Provider Name and Address Organization Details Last Updated DateTime 3 193.04 cm 26 kg/m2 93553.7 7 g 97.7 [degF] 16 /min 80 /min 98 % 98 % 132 mm[Hg] 64 mm[Hg] Payal Jordan RN [facility] [employer] [facility] 3 16:11:30 Date Recorded Systolic blood pressure Diastolic blood pressure Provider Name and Address Organization Details Last Updated DateTime 07/29/2022 153 mm[Hg] 87 mm[Hg] Girish Freeman MD [address] [place] [address] [address], [place], [address], [employer] [employer] [facility] [employer] [facility] 07/29/2022 11:59:55 Date Recorded Body height Body mass index (BMI) Body weight Body temperature Heart rate Oxygen saturation Oxygen saturation in Arterial blood by Pulse oximetry Provider Name and Address Organization Details Last Updated DateTime 3 193.04 cm 24.8 kg/m2 84912.4 1 g 98.2 [degF] 85 /min 98 % 98 % Samaria Powell MA [employer] [facility] [employer] [employer] [facility] 3 11:58:34 Date Recorded Body mass index (BMI) Body height Oxygen saturation Oxygen saturation in Arterial blood by Pulse oximetry Heart rate Respiratory rate Body temperature Body weight Systolic blood pressure Diastolic blood pressure Provider Name and Address Organization Details Last Updated DateTime 2 25.7 kg/m2 193.04 cm 98 % 98 % 68 /min 16 /min 98.3 [degF] 57589.9 9 g 136 mm[Hg] 80 mm[Hg] Not Available [facility] 3 02:28:34 Date Recorded Body mass index (BMI) Body height Oxygen saturation Oxygen saturation in Arterial blood by Pulse oximetry Heart rate Body temperature Body weight Systolic blood pressure Diastolic blood pressure Provider Name and Address Organization Details Last Updated DateTime 2 25.9 kg/m2 193.04 cm 98 % 98 % 86 /min 98.3 [degF] 04239.1 7 g 138 mm[Hg] 88 mm[Hg] Not Available [facility] 3 02:28:34 Date Recorded Body mass index (BMI) Body height Oxygen saturation Oxygen saturation in Arterial blood by Pulse oximetry Heart rate Respiratory rate Body temperature Body weight Systolic blood pressure Diastolic blood pressure Provider Name and Address Organization Details Last Updated DateTime 2 25.7 kg/m2 193.04 cm 98 % 98 % 80 /min 16 /min 98.4 [degF] 95328.9 9 g 134 mm[Hg] 80 mm[Hg] Not Available [facility] 3 02:28:34 Social History Question Answer Notes LastModified by Organizat ion Details LastModified Time Tobacco Smoking Status Current Every Day Smoker Not Available [facility] 06/10/2022 02:25:32 Do You Have An Advance Directive? No [id number] Information not available 06/10/2022 Do You Wear A Helmet When Biking? No MIGRATION.87069 [id number] Information not available 06/10/2022 What Is Your Level Of Caffeine Consumption? Heavy MIGRATION.02893 00350 Information not available 06/10/2022 In The 14 Days Before Symptom Onset, Have You Had Close Contact With A Laboratory-confi rmed COVID-19 While That Case Was Ill? No MIGRATION.73341 [id number] Information not available 06/10/2022 In The 14 Days Before Symptom Onset, Have You Had Close Contact With A Person Who Is Under Investigation For COVID-19 While That Person Was Ill? No MIGRATION.62942 [id number] Information not available 06/10/2022 Have There Been Any Changes To Your Family Or Social Situation? No MIGRATION.53320 81864 Information not available 06/10/2022 Are There Any Guns Present In Your Home? No MIGRATION.78528 28617 Information not available 06/10/2022 Do You Use Insect Repellent Routinely? No MIGRATION.57427 25108 Information not available 06/10/2022 Where Do You Live? [place]House MIGRATION.95296 37283 Information not available 06/10/2022 Do You Have A Medical Power Of Ladle Puller? No MIGRATION.88946 51491 Information not available 06/10/2022 Do You Have Any Pets? No MIGRATION.93145 20172 Information not available 06/10/2022 What Is Your Relationship Status? Single MIGRATION.49626 01552 Information not available 06/10/2022 Do You Use Your Seat Belt Or Car Seat Routinely? Yes MIGRATION.04701 66159 Information not available 06/10/2022 Do You Have Smoke And Carbon Monoxide Detectors In Your Home? Yes MIGRATION.67161 30171 Information not available 06/10/2022 Are You Passively Exposed To Smoke? Yes MIGRATION.44017 14212 Information not available 06/10/2022 Are There Any Smokers In Your House? Yes MIGRATION.84261 83081 Information not available 06/10/2022 How Much Tobacco Do You Smoke? 1 PPD MIGRATION.19477 23610 Information not available 06/10/2022 Do You Participate In Social Media? No MIGRATION.92357 33684 Information not available 06/10/2022 Do You Use Sunscreen Routinely? No MIGRATION.16375 61574 Information not available 06/10/2022 Has Tobacco Cessation Counseling Been Provided? No MIGRATION.61837 08644 Information not available 06/10/2022 Have You Recently Traveled Abroad? No MIGRATION.24658 97273 Information not available 06/10/2022 Are You Currently In School? No MIGRATION.27789 45229 Information not available 06/10/2022 Sex: Male Functional Status Question Answer Note LastModified by Organizat ion Details LastModified Time Do you use any illicit or recreational drugs? No MIGRATION.[id number] Information not available 06/10/2022 Do you or have you ever used any other forms of tobacco or nicotine? No MIGRATION.[id number] 26 Information not available 06/10/2022 What is your level of alcohol consumption? None MIGRATION.[id number] 26 Information not available 06/10/2022 Mental Status Question Answer Note LastModified by Organizat ion Details LastModified Time Do you feel stressed (tense, restless, nervous, or anxious, or unable to sleep at night)? [id number] MIGRATION.[id number] Information not available 06/10/2022 Family History Relationship Description Onset Age of this Age Resolved Age Notes LastModified by Organization Details LastModified Time Mother Diabetes mellitus [id number] Not available 06/10/2022 02:27:24 Maternal Grandmother Diabetes mellitus MIGRATION.680 [id number] Not available 06/10/2022 02:27:24 Maternal Aunt Diabetes mellitus MIGRATION.169 [id number] Not available 06/10/2022 02:27:24 Father Cerebrovascu lar accident MIGRATION.170 [id number] Not available 06/10/2022 02:27:24 Medical History Condition Response MRSA N LUNG DISEASE/DISORDER N HISTORY OF DRUG ABUSE N COPD N RADIATION / CHEMOTHERAPY N BLOOD DISEASES N EAR OR HEARING PROBLEMS N SHINGLES N DEPRESSION (INCLUDING POST ) N STROKE/TIA N ULCERS N OBESITY N ANEURYSM N USE OF BLOOD THINNERS N PARATHYROID DISEASE N CHF N AIDS/HIV N FRACTURES N HYPERTENSION N TOURETTE'S N BLOOD TRANSFUSION N ANEMIA/BLOOD DISORDER N CHRONIC EAR INFECTIONS N TUBERCULOSIS N SLEEP APNEA N ALLERGIES/HAYFEVER N INSOMNIA N HIGH CHOLESTEROL / HYPERLIPIDEMIA N HYPERTHYROIDISM N HYPOTHYROIDISM N HAVE YOU BEEN HOSPITALIZED OR SEEN IN [facility] ER IN THE PAST YEAR ? N HISTORY WITH COMPLICATIONS WITH ANESTHES IA ? N NO SIGNIFICANT PAST MEDICAL HISTORY N DIABETES, TYPE N ENT N SEASONAL ALLERGIES N HEARTBURN / REFLUX N HEPATITIS / LIVER DISEASE N SLEEP DISORDER N SEIZURES/EPILEPSY N HEADACHES/MIGRAINES N PACEMAKER N DIZZINESS N HEART DISEASE/HEART PROBLEMS N CANCER: SPECIFY N ANESTHESIA COMPLICATIONS N Immunizations Vaccine Type Date Status Note Provider Nam e and Address Organization Details Recorded Time Influenza, split virus, quadrivalent, PF 1 completed Not Available [facility] 06/10/2022 02:33:53 COVID-19, mRNA, LNP-S, PF, 30 mcg/0.3 mL dose 2 completed Not Available [facility] 06/10/2022 02:33:53 SARS-COV-2 (COVID-19) vaccine, UNSPECIFIED 1 completed Not Available [facility] 06/10/2022 02:33:53 SARS-COV-2 (COVID-19) vaccine, UNSPECIFIED 1 completed Not Available [facility] 06/10/2022 02:33:53 Past Encounters Encounter ID Performer Location Encounter Start Date Encounter Closed Date Diagnosis/Indication Diagnosis SNOMED-CT Code Diagnosis ICD10 Code Diagnosis Note [id number] Girish Freeman MD [address] [address] 06/17/2020 00:00:00 06/17/2020 16:51:09 [id number] Girish Freeman MD [address] [address] 06/24/2020 00:00:00 06/24/2020 10:48:46 [id number] RONAK VickATHENA_M IGRATION_ DEFAULT_1 _1 , 07/01/2020 00:00:00 07/02/2020 10:22:13 [id number] Girish Freeman MD [address] [address] 07/02/2020 00:00:00 07/02/2020 10:58:49 [id number] RONAK VickATHENA_M IGRATION_ DEFAULT_1 _1 , 07/22/2020 00:00:00 07/22/2020 14:43:07 [id number] RONAK VickATHENA_M IGRATION_ DEFAULT_1 _1 , 08/05/2020 00:00:00 08/05/2020 12:47:06 [id number] RONAK VickATHENA_M IGRATION_ DEFAULT_1 _1 , 08/19/2020 00:00:00 08/19/2020 15:08:28 [id number] Girish Freeman MD [address] [address] 09/16/2020 00:00:00 09/16/2020 12:43:52 [id number] Isai Reyes DPM _ATHENA_M IGRATION_ DEFAULT_1 _1 , 09/30/2020 00:00:00 10/01/2020 09:52:37 [id number] Isai Reyes DPM _ATHENA_M IGRATION_ DEFAULT_1 _1 , 10/28/2020 00:00:00 10/28/2020 20:44:50 [id number] Girish Freeman MD [facility] [place] [address] [place] [address] 10/29/2020 00:00:00 10/29/2020 12:55:55 [id number] Girish Freeman MD [facility] [place] [address] [place] [address] 1 11/13/2020 00:00:00 11/13/2020 12:05:45 [id number] Isai Reyes DPM _ATHENA_M IGRATION_ DEFAULT_1 _1 , 11/18/2020 00:00:00 11/19/2020 09:34:51 [id number] Girish Freeman MD [facility] [place] [address] [place] [address] 12/11/2020 00:00:00 12/11/2020 15:28:04 [id number] Girish Freeman MD [facility] [place] [address] [place] [address] 1 12/23/2020 00:00:00 12/23/2020 11:20:35 [id number] Girish Freeman MD [facility] [place] [address] [place] [address] 1 01/01/2021 00:00:00 01/01/2021 11:42:58 [id number] Girish Freeman MD [facility] [place] [address] [place] [address] 1 01/14/2021 00:00:00 01/14/2021 12:32:26 [id number] JAX VickSarita _ASHLEY_M IGRATION_ DEFAULT_1 _1 , 01/20/2021 00:00:00 01/21/2021 09:48:35 [id number] [facility] [place] [address] [place] [address] 02/03/2021 00:00:00 02/03/2021 13:26:11 [id number] Girish Freeman MD [facility] [place] [address] [place] [id number] 1 03/13/2021 00:00:00 03/13/2021 11:48:17 [id number] RONAK VickATHYAN_M IGRATION_ DEFAULT_1 _1 , 03/24/2021 00:00:00 03/24/2021 16:32:35 [id number] [facility] [place] [address] [place] [address] 03/26/2021 00:00:00 03/26/2021 13:12:34 [id number] Girish Freeman MD [facility] [place] [address] [place] [address] 1 05/29/2021 00:00:00 05/29/2021 11:05:29 [id number] Girish Freeman MD [facility] [place] [address] [place] [id number] 1 06/10/2021 00:00:00 06/10/2021 15:16:30 [id number] Girish Freeman MD [facility] [place] [address] [place] [address] 1 06/18/2021 00:00:00 06/18/2021 14:53:46 [id number] MD GUILHERME [facility] [place] [address] [place] [address] 1 06/23/2021 00:00:00 06/24/2021 14:45:04 [id number] Girish Freeman MD [facility] [place] [address] [place] [address] 07/17/2021 00:00:00 07/17/2021 12:37:13 [id number] Jordin Moncada MD [facility] [place] [address] [place] [address] 07/29/2021 00:00:00 07/29/2021 15:07:59 [id number] Jordin Moncada MD [facility] [place] [address] [place] [address] 08/07/2021 00:00:00 08/07/2021 11:50:40 [id number] Girish Freeman MD [facility] [place] [address] [place] [address] 09/18/2021 00:00:00 09/18/2021 12:20:11 [id number] Girish Freeman MD [facility] [place] [address] [place] [address] 10/02/2021 00:00:00 10/02/2021 16:50:35 [id number] Girish Freeman MD [facility] [place] [address] [place] [address] 10/27/2021 00:00:00 10/27/2021 14:02:20 [id number] Girish Freeman MD [facility] [place] [address] [place] [address] 11/18/2021 00:00:00 11/18/2021 10:12:10 [id number] Girish Freeman MD [facility] [place] [address] [place] [address] 12/18/2021 00:00:00 12/18/2021 16:29:07 [id number] Girish Freeman MD [facility] [place] [address] [place] [address] 02/02/2022 00:00:00 02/02/2022 14:13:32 [id number] Girish Freeman MD [address] [address] 03/02/2022 00:00:00 03/02/2022 17:20:45 [id number] Girish Freeman MD [address] [address] 06/11/2022 16:03:28 06/11/2022 16:41:51 Seen in emergency clinic [id number] Z76.89 Strain of abdominal muscle 441025075 S39.011D Chronic low back pain 27 4280114 M54.50 Anxiety disorder 6875895 06 F41.9 Hypertensive disorder 38 102305 I10 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 456173729 E11.9 Lumbar spondylosis 34159 0009 M47.896 [id number] Girish Freeman MD [address] [address] 07/29/2022 11:43:58 07/29/2022 12:15:45 Chronic low back pain 417776076 M54.50 Anxiety disorder F41.9 Hypertensive disorder 38 824617 I10 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 ON OR AFTER 10/10/20 (MEDICAID REPLACEMENT - HMO) Quoc Stafford [id number] Quoc Stafford Notes Date Note Type Note Provider Name and Address Organization Details Recorded Time 06/11/2022 text/html ED fuv: Pt was seen in ED 2 weeks ago due to Lt sided abdominal pain and had multiple labs, CT and it all came back good. So pt was d/c to home, no new med from ED. Pt's symptoms got better in couple days and no more pain concern. Pt has few questions as usual for me. Pt wants to do his next annual labs in 09/01. Pt has seen another spine doctor at [place] for his chronic neck and back pain and he has recommended surgery or laser ablation for him and pt still wants to wait and talk with his Pain specialist about this.Pt doesn't want to see another pain clinic at [facility] and he is continuing with Pain clinic at [facility] for his chronic pain concerns.Pt has seen older adult social work specialist at [facility] and he has recommended pt to go for Radiofrequency ablation and he has recommended another specialist at [facility] for him. Pt has info about them.C/o chronic neck pain and pt is f/u with Pain clinic at [place] and he advised pt to ask his PCP to do MRI C-spine.C/o low back pain that is getting worse and now he is feeling tingling and numbness over both feet and legs. Pt denies any incontinence.Pt has done about 4 sessions of PT of his back & neck pain and he says his pain is getting more worse. Pt says he has done PT for his chronic b/l feet pain and his pain got worse after it. So he is not going to do anymore PT.Pt has seen Uro for his flank and scrotal pain and will be getting testing done with them. Pt was referred by them to Pain clinic.Pt says his body is not same as before after getting Moderna vaccine.Pt has seen Hemat due to his persistent high bilirubin and they told him that its due to the stress. They had done MRI and US for him and all those testing came back good as per pt. Denies any mood problems/depression/ mood swings/SI/HI.Pt is f/u with [facility] for his chronic b/l feet pain.Pt has cut down smoking to now 0.5 ppd. Pt's insurance did not approve Wellbutrin. Girish Freeman MD [address], [place], [address], [place] [facility] [email or web address] 06/11/2022 16:34:28 07/29/2022 text/html ACV: Pt has few questions about his back pain. Still c/o back pain as before. Pt did some yard work 3 weeks ago and he did lift up few tree branches and since than, his pain is not controlled. Pt has papers for his Jury duty and he is requesting a letter from me, so he can avoid going there due to his back pain issues. Pt also wants to see another pain specialist at [place] for his chronic back pain concerns. Pt wants to do his next annual labs in 09/01. Pt has seen another spine doctor at [place] for his chronic neck and back pain and he has recommended surgery or laser ablation for him and pt still wants to wait and talk with his Pain specialist about this.Pt doesn't want to see another pain clinic at [facility] and he is continuing with Pain clinic at [facility] for his chronic pain concerns.Pt has seen older adult social work specialist at [facility] and he has recommended pt to go for Radiofrequency ablation and he has recommended another specialist at [facility] for him. Pt has info about them.C/o chronic neck pain and pt is f/u with Pain clinic at [place] and he advised pt to ask his PCP to do MRI C-spine.C/o low back pain that is getting worse and now he is feeling tingling and numbness over both feet and legs. Pt denies any incontinence.Pt has done about 4 sessions of PT of his back & neck pain and he says his pain is getting more worse. Pt says he has done PT for his chronic b/l feet pain and his pain got worse after it. So he is not going to do anymore PT.Pt has seen Uro for his flank and scrotal pain and will be getting testing done with them. Pt was referred by them to Pain clinic.Pt says his body is not same as before after getting Moderna vaccine.Pt has seen Hemat due to his persistent high bilirubin and they told him that its due to the stress. They had done MRI and US for him and all those testing came back good as per pt. Denies any mood problems/depression/ mood swings/SI/HI.Pt is f/u with [facility] for his chronic b/l feet pain.Pt has cut down smoking to now 0.5 ppd. Pt's insurance did not approve Wellbutrin. Girish Freeman MD [address] [facility] [address], [place], [address], [place] [facility] 07/29/2022 13:04:33
--- OUTSIDE RECORDS SUMMARY | 2024-10-12 01:43 | XMS_ITS | Clinical Summary ---
Author Organization 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 Name Role Phone Alonzo Awan MD Unavailable [...] 8:32 AM CDT Height 193 cm (6' 4) 01/20/2017 8:32 AM CDT Body Mass Index 28.61 01/20/2017 8:32 AM CDT Plan of Treatment Health Maintenance Due Date Last Done Comments Colorectal Cancer Screening Colonoscopy (10 Years) 1967 Annual Physical 12/28/1970 Hepatitis C 12/28/1985 DTaP, Tdap and Td Vaccines ( 1 - Tdap) 12/28/1986 Hepatitis B Vaccines (1 of 3 - 19+ 3-dose series) 12/28/1986 Pneumococcal Vaccine: 50+ Ye ars (1 of 1 - PCV) 12/28/2017 Zoster Vaccines (1 of 2) 12/28/2017 COVID-19 Vaccine (1 - 2023-2 5 season) 2023 Meningococcal B Vaccine Aged Out No l onger eligible based on patient's age to complete this topic Meningococcal Vaccine Aged Out No yaneli millie eligible based on patient's age to complete this topic RSV Immunizations Under 20 Months Aged Out No longer eligible based on patient's age to complete this topic Insurance [facility] Care Teams Electric Motor Assembler And Tester Relationship Specialty Start Date End Date Alonzo Awan MD [facility]. [address] [address] Vascular/Rail Equipment Operator VASCULAR SURGERY 11/10/16
--- OUTSIDE RECORDS SUMMARY | 2024-10-12 01:43 | XMS_ITS | Clinical Summary ---
Author Organization [facility] Address [address] [place] [address] Care Team Providers Care Barge Captain Name Role Phone FreemanGirish Primary Care Provider Unavailab le Source Comments [facility],non-owned Affiliates and Associated Physician Practices is amultiple site organization consisting of ambulatory clinics and hospital sitesin [place], [place], [place] and [place]. This disclosure is being madepursuant to the Care Everywhere program and may not contain all information available regarding this patient. Last updated 17.[facility] Social History Tobacco Use Types Packs/Day Years Used Date Smoking Tobacco: Never Assessed Sex and Gender Information Value Date Recorded Sex Assigned at Not on file Legal Sex Male 9:37 AM CDT Gender Identity Not on file Sexual [...] VACCINE ( - 2023-2 5 season) 2023 DEPRESSION SCREENING 04/12/2024 INFLUENZA VACCINE (Season Ended) 2024 02/03/20 20 HIB VACCINE Aged Out No longer eligi ble based on patient's age to complete this topic HPV VACCINE Aged Out No longer eligi ble based on patient's age to complete this topic MENINGOCOCCAL (Group B) VACC INE SHARED DECISION-MAKING Aged Out No longer eligibl e based on patient's age to complete this topic MENINGOCOCCAL GROUPS A/C/Y/W VACCINE Aged Out No longer eligible b ased on patient's age to complete this topic Insurance [facility] Care Teams Barge Captain Relationship Specialty Start Date End Date Girish Freeman Update Information PCP - General 05/11/20
[2024-10-12 06:24] VITALS: BP 138/83; PULSE 61; RESP 18; TEMP 36.9; O2SAT 100
[2024-10-12] MEDS: LACTATED RINGERS 1,000 ML 150 ML IV CONT (06:32)
[2024-10-12] MEDS: SIMETHICONE ORAL SUSPENSION 20 MG/0.3 ML 30 ML BOTTLE 1.8 ML PO (07:06)
--- NOTE | 2024-10-12 07:24 | P.PNAN_ITS ---
Anes - Initial Pre Proc Eval Procedure: Operation Date: 10/12/24 07:30 Proposed Procedures p Esophagogastroduodenoscopy - Duran Lazar MD Date/Time: 10/12/24 07:24 Surgeon: Duran Lazar MD Pre Op Diagnosis: GERD Patient Data Age: 58 Gender: M Height: 1.98 m Weight: 81.8 kg Last Vital Signs Temp 36.9 C 10/12/24 06:24 Pulse 61 10/12/24 06:24 Resp 18 10/12/24 06:24 BP 138/83 10/12/24 06:24 Pulse Ox 100 10/12/24 06:24 O2 Del Method Room Air 10/12/24 06:24 Allergies Allergy/AdvReac Type Severity Reaction Status Date / Time atenolol Allergy Unknown tremor Verified 10/12/24 06:20 erythromycin base Allergy Unknown Unknown Verified 10/12/24 06:20 lisinopril Allergy Unknown cough Verified 10/12/24 06:20 naproxen Allergy Unknown upset Verified 10/12/24 06:20 stomach DEZ Inhibitors Allergy Unknown Verified 10/12/24 06:20 acetaminophen (From Allergy Unknown Verified 10/12/24 06:20 Tylenol-Codeine #3) baclofen Allergy Unknown Verified 10/12/24 06:20 codeine (From Allergy Unknown Verified 10/12/24 06:20 Tylenol-Codeine #3) diclofenac Allergy Unknown Verified 10/12/24 06:20 etodolac Allergy Unknown Verified 10/12/24 06:20 gabapentin Allergy Unknown Verified 10/12/24 06:20 ibuprofen Allergy Unknown Verified 10/12/24 06:20 meloxicam Allergy Unknown Verified 10/12/24 06:20 metformin Allergy Unknown Verified 10/12/24 06:20 methylprednisolone Allergy Unknown Verified 10/12/24 06:20 metoprolol Allergy Unknown Verified 10/12/24 06:20 metronidazole Allergy Unknown Verified 10/12/24 06:20 nabumetone Allergy Unknown Verified 10/12/24 06:20 omeprazole Allergy Unknown Verified 10/12/24 06:20 prednisone Allergy Unknown Verified 10/12/24 06:20 tramadol Allergy Unknown Verified 10/12/24 06:20 semaglutide (From Rybelsus) AdvReac Severe Abdominal Verified 10/12/24 06:20 Pain cephalexin AdvReac Sleepy, Verified 10/12/24 06:20 stomach pains Prednisone Allergy Intermediate Itching Uncoded 10/12/24 06:20 Home Medications ?Medication ?Instructions ?Recorded ?Confirmed ?Type blood sugar diagnostic (PushPointTouch #200 ea 09/17/23 09/27/24 Rx Ultra Test strips) empagliflozin 10 mg tablet 5 mg (1/2 x 10 mg) PO DAILY #30 09/17/23 10/12/24 Rx (Jardiance) tabs flash glucose scanning reader #1 ea 11/22/23 09/27/24 Rx (FreeStyle [place] 2 [place]) Diabetic Shoes #1 ea 02/10/24 09/27/24 Rx alcohol swabs (Alcohol Prep Pads) See Rx Instructions .Route 05/05/24 10/12/24 Rx .COMPLEX #100 ea blood sugar diagnostic (Easy Plus #100 ea 05/05/24 09/27/24 Rx II Test strips) losartan 25 mg tablet 25 mg PO DAILY #90 tabs 05/05/24 10/12/24 Rx blood-glucose meter (Easy Plus II #1 ea 05/19/24 09/27/24 Rx Blood Glucose Meter) famotidine 40 mg tablet 40 mg PO QID PRN GERD 05/19/24 09/27/24 History naloxone 4 mg/actuation nasal spray 1 spray intranasal Q3M PRN opioid 05/19/24 09/27/24 History overdose lidocaine 5 % topical ointment See Rx Instructions .Route 06/02/24 09/27/24 Rx .COMPLEX #100 grams lancets 30 gauge (OneTouch Delica #100 ea 06/23/24 09/27/24 Rx Plus Lancet) ondansetron 4 mg disintegrating 4 mg PO Q8H PRN nausea and 07/04/24 09/27/24 Rx tablet vomiting #60 tabs cephalexin 500 mg capsule 500 mg PO Q12H #14 caps 09/26/24 09/27/24 Rx ammonium lactate 12 % lotion 1 applic topical DAILY PRN dry 09/28/24 10/12/24 Rx skin #400 grams fluticasone propionate 50 See Rx Instructions .Route 09/28/24 10/12/24 Rx mcg/actuation nasal .COMPLEX #62 grams spray,suspension hydrocodone 7.5 mg-acetaminophen 1 tablet PO Q4H PRN pain #180 tabs 09/28/24 10/12/24 Rx 325 mg tablet Laboratory Tests 10/12/24 06:41 POC Capillary Glucose 103 mg/dl (65-105) Patient hx anesthesia problems: none Family hx anesthesia problems: none Results Review: All pre-operative results and documents have been reviewed as part of the pre- operative evaluation. [facility] Past Medical History Medical History Nonalcoholic steatohepatitis (TILLMAN) Factor 5 Leiden mutation, heterozygous DM (diabetes mellitus) GERD (gastroesophageal reflux disease) H/O: HTN (hypertension) Hypercholesteremia Surgical History Surgical History History of surgery on lower extremity Family History Family History Father Diabetes mellitus Family history of glaucoma Hypertension Grandparent Diabetes mellitus Hypertension Mother Diabetes mellitus Family history of glaucoma Cerebrovascular accident Sibling No problems noted. Social History Social History Social History: Caffeine-diet soda Smoking packs per day: 1 Smoking cigarettes per day: 20.0 Smoking status: Current some day smoker Tobacco type: cigarettes Second hand tobacco smoke exposure: No Alcohol intake: never Substance use: never Substance use type: does not use Do You Feel Safe in your Home?: Yes Lack of Transportation: No Lack of Food: Never True Current Housing: I Have Housing Concerned About Future Housing: No Difficulty Paying Gas/Electric Bills: No Difficulty Paying for Meds: No Currently Unemployed: No Education: Associate Degree Difficulty w/ Childcare or Family Care: No Living arrangements: alone Additional occupation/education comments: disabled Gender identity (if verbalized by the patient): Male Anes - Eval Final PreProcedure Day of Procedure 10/12/24 07:24 Patient weight: normal Heart: regular rate and rhythm Lungs: clear to auscultation Airway: Mallampati scale class II Neurological: alert and oriented Last oral intake: >/= 8 hours ASA classification: III Emergent: no Anesthetic plan: proceed Anesthesia type and monitoring: general GIVS and standard monitoring Results Review: All pre-operative results and documents have been reviewed as part of the pre- operative evaluation. Informed Consent: The patient's anesthetic plan and its attendant risks and benefits were discussed with the patient/family/POA. Questions were solicited and answers provided to the satisfaction of the patient/family/POA.
--- NOTE | 2024-10-12 07:30 | PM.IMHP ---
H&P: HPI History of Present Illness Date/Time: 10/12/24 07:30 Chief Complaint: Atypical GERD Narrative: despite absence of typical heartburn symptoms, there is a suspicion for atypical GERD , he is referred for EGD. Review of Systems Review of Systems: All systems reviewed & are unremarkable except as noted in HPI and below PMFSH Past Medical History Medical History Nonalcoholic steatohepatitis (TILLMAN) Factor 5 Leiden mutation, heterozygous DM (diabetes mellitus) GERD (gastroesophageal reflux disease) H/O: HTN (hypertension) Hypercholesteremia Surgical History Surgical History History of surgery on lower extremity Family History Family History Father Diabetes mellitus Family history of glaucoma Hypertension Grandparent Diabetes mellitus Hypertension Mother Diabetes mellitus Family history of glaucoma Cerebrovascular accident Sibling No problems noted. Social History Social History Social History: Caffeine-diet soda Smoking packs per day: 1 Smoking cigarettes per day: 20.0 Smoking status: Current some day smoker Tobacco type: cigarettes Second hand tobacco smoke exposure: No Alcohol intake: never Substance use: never Substance use type: does not use Do You Feel Safe in your Home?: Yes Lack of Transportation: No Lack of Food: Never True Current Housing: I Have Housing Concerned About Future Housing: No Difficulty Paying Gas/Electric Bills: No Difficulty Paying for Meds: No Currently Unemployed: No Education: Associate Degree Difficulty w/ Childcare or Family Care: No Living arrangements: alone Additional occupation/education comments: disabled Gender identity (if verbalized by the patient): Male Meds Home Medications and Allergies Home Medications ?Medication ?Instructions ?Recorded ?Confirmed ?Type blood sugar diagnostic (OneTouch #200 ea 09/17/23 09/27/24 Rx Ultra Test strips) empagliflozin 10 mg tablet 5 mg (1/2 x 10 mg) PO DAILY #30 09/17/23 10/12/24 Rx (Jardiance) tabs flash glucose scanning reader #1 ea 11/22/23 09/27/24 Rx (FreeStyle [place] 2 [place]) Diabetic Shoes #1 ea 02/10/24 09/27/24 Rx alcohol swabs (Alcohol Prep Pads) See Rx Instructions .Route 05/05/24 10/12/24 Rx .COMPLEX #100 ea blood sugar diagnostic (Easy Plus #100 ea 05/05/24 09/27/24 Rx II Test strips) losartan 25 mg tablet 25 mg PO DAILY #90 tabs 05/05/24 10/12/24 Rx blood-glucose meter (Easy Plus II #1 ea 05/19/24 09/27/24 Rx Blood Glucose Meter) famotidine 40 mg tablet 40 mg PO QID PRN GERD 05/19/24 09/27/24 History naloxone 4 mg/actuation nasal spray 1 spray intranasal Q3M PRN opioid 05/19/24 09/27/24 History overdose lidocaine 5 % topical ointment See Rx Instructions .Route 06/02/24 09/27/24 Rx .COMPLEX #100 grams lancets 30 gauge (OneTouch Delica #100 ea 06/23/24 09/27/24 Rx Plus Lancet) ondansetron 4 mg disintegrating 4 mg PO Q8H PRN nausea and 07/04/24 09/27/24 Rx tablet vomiting #60 tabs cephalexin 500 mg capsule 500 mg PO Q12H #14 caps 09/26/24 09/27/24 Rx ammonium lactate 12 % lotion 1 applic topical DAILY PRN dry 09/28/24 10/12/24 Rx skin #400 grams fluticasone propionate 50 See Rx Instructions .Route 09/28/24 10/12/24 Rx mcg/actuation nasal .COMPLEX #62 grams spray,suspension hydrocodone 7.5 mg-acetaminophen 1 tablet PO Q4H PRN pain #180 tabs 09/28/24 10/12/24 Rx 325 mg tablet Allergies Allergy/AdvReac Type Severity Reaction Status Date / Time atenolol Allergy Unknown tremor Verified 10/12/24 06:20 erythromycin base Allergy Unknown Unknown Verified 10/12/24 06:20 lisinopril Allergy Unknown cough Verified 10/12/24 06:20 naproxen Allergy Unknown upset Verified 10/12/24 06:20 stomach DEZ Inhibitors Allergy Unknown Verified 10/12/24 06:20 acetaminophen (From Allergy Unknown Verified 10/12/24 06:20 Tylenol-Codeine #3) baclofen Allergy Unknown Verified 10/12/24 06:20 codeine (From Allergy Unknown Verified 10/12/24 06:20 Tylenol-Codeine #3) diclofenac Allergy Unknown Verified 10/12/24 06:20 etodolac Allergy Unknown Verified 10/12/24 06:20 gabapentin Allergy Unknown Verified 10/12/24 06:20 ibuprofen Allergy Unknown Verified 10/12/24 06:20 meloxicam Allergy Unknown Verified 10/12/24 06:20 metformin Allergy Unknown Verified 10/12/24 06:20 methylprednisolone Allergy Unknown Verified 10/12/24 06:20 metoprolol Allergy Unknown Verified 10/12/24 06:20 metronidazole Allergy Unknown Verified 10/12/24 06:20 nabumetone Allergy Unknown Verified 10/12/24 06:20 omeprazole Allergy Unknown Verified 10/12/24 06:20 prednisone Allergy Unknown Verified 10/12/24 06:20 tramadol Allergy Unknown Verified 10/12/24 06:20 semaglutide (From Rybelsus) AdvReac Severe Abdominal Verified 10/12/24 06:20 Pain cephalexin AdvReac Sleepy, Verified 10/12/24 06:20 stomach pains Prednisone Allergy Intermediate Itching Uncoded 10/12/24 06:20 Vital Signs Vital Signs - 24 hr 10/12/24 06:24 Temperature 98.4 F Pulse Rate 61 Respiratory Rate 18 Blood Pressure 138/83 Pulse Oximetry 100 Oxygen Delivery Room Air Exam Const: General: cooperative and healthy appearing Resp: Effort & Inspection: normal respiratory effort and able to speak in complete sentences Auscultation: clear to auscultation bilaterally Cardio: Rate: regular rate Rhythm: regular rhythm GI: Inspection: normal to inspection GI Palp: No No hepatosplenomegaly present Auscultation: normal bowel sounds Rectal Exam: deferred Skin: General skin exam: normal color Psych: Appearance: grossly normal Mental Status: mental status grossly normal Assessment and Plan Assessment and plan (1) GERD (gastroesophageal reflux disease): Qualifiers: Esophagitis presence: esophagitis presence not specified Qualified Code(s): K21.9 - Gastro-esophageal reflux disease without esophagitis Code(s): K21.9 - Gastro-esophageal reflux disease without esophagitis Status: Acute Assessment and Plan: The patient is deemed a good candidate for the procedure. Consent signed. Will proceed.
[2024-10-12 07:45] VITALS: BP 99/67; PULSE 79; RESP 24; O2SAT 100
[2024-10-12 07:54] VITALS: BP 151/87; PULSE 66; RESP 22; O2SAT 100
[2024-10-12 08:15] VITALS: BP 150/83; PULSE 72; RESP 16; O2SAT 100
== END 2024-10-12 08:19 | disposition home or self-care (01) ==
PROVIDERS: PCP Family Medicine; Referring Provider Nurse Practitioner Family; Visit Provider Internal Medicine Gastroenterology
PROC: 0DJ08ZZ Inspection of Upper Intestinal Tract, Via Natural or Artificial Opening Endoscopic (ICD-10-PCS; CPT 43235; principal; 2024-10-12 07:30)
DX: K21.9 Gastro-esophageal reflux disease without esophagitis (principal); K76.6 Portal hypertension; K31.89 Other diseases of stomach and duodenum; K76.0 Fatty (change of) liver, not elsewhere classified; I85.10 Secondary esophageal varices without bleeding; D68.51 Activated protein C resistance; E11.9 Type 2 diabetes mellitus without complications; F17.210 Nicotine dependence, cigarettes, uncomplicated
CPT/HCPCS: 43235; 82948; J2003; J2704; J7120

== ENCOUNTER 2025-03-20 06:48 | Outpatient (CLI) | payer OTHER, SELFPAY ==
--- NOTE | ~2025-03-20 | US_ITS ---
EXAMINATION: US retroperitoneal duplex ltd DATE: 03/20/2025 08:16 INDICATION: Dilated portal vein on prior ultrasound suggestive of portal venous hypertension. TECHNIQUE: Multiple grayscale, color Doppler, and pulsed Doppler images of the kidneys and renal arteries were obtained. COMPARISON: Ultrasound dated 11/25/2023 FINDINGS: No significant change in diameter of the main portal vein which measures 15 cm. There is normal portal venous flow in the main, left and right portal veins which is in the hepatopetal, normal direction and has normal Doppler waveform. The left, middle and right hepatic veins also demonstrate normal hepatofugal flow with normal hepatic venous waveforms. Hepatic artery is patent with normal brisk systolic upstroke. Common bile duct measures 4 mm in diameter which is normal. IMPRESSION: 1. Normal hepatic vascular Doppler study. Reviewed, dictated and finalized at location A. AL WORKER DELINQUENCY PREVENTION
--- OUTSIDE RECORDS SUMMARY | 2025-03-20 06:52 | XMS_ITS | Data Portability ---
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 Diet [...] schedule. Cont f/u with Spine surgeon at [place] as per schedule. Cont f/u with Pain clinic at [place] as per schedule. Cont f/u with PT as per schedule. Cont f/u with Uro at [place] as per schedule. Cont f/u with GI as per schedule. Cont f/u with Hemat at [place] as per schedule. Cont f/u with ENT as per schedule. Cont f/u with Cloth Stretcher as per schedule. Cont f/u with Ortho as per schedule. Cont f/u with Ophtho as per schedule. Advised pt to avoid any Acetaminophen and alcohol in future. Offered to refer to Device Sales Consultant; but pt declined. Pt got severe diarrhea with Metformin. Pt got s/e from Metoprolol, Chantix, Meloxicam. Pt's insurance did not approve Wellbutrin. HM: Colonoscopy - 4 yrs ago, normal as per pt. Cont f/u with GI as per schedule. Flu - 03/02. Tdap, Pneumo, Shingrix - At [facility]. F/u as directed. Annual labs in 07/02. [email or web address] Not available 06/11/2022 16:32:47 07/29/2022 07/29/2022 56 [...] pt to f/u with his Hemat at [place] for his Thrombocytopenia and high bilirubin. Diet [...] schedule. Cont f/u with Spine surgeon at [place] as per schedule. Cont f/u with Pain clinic at [place] as per schedule. Cont f/u with PT as per schedule. Cont f/u with Uro at [place] as per schedule. Cont f/u with GI as per schedule. Cont f/u with Hemat at [place] as per schedule. Cont f/u with ENT as per schedule. Cont f/u with Cloth Stretcher as per schedule. Cont f/u with Ortho as per schedule. Cont f/u with Ophtho as per schedule. Advised pt to avoid any Acetaminophen and alcohol in future. Offered to refer to Device Sales Consultant; but pt declined. Pt got severe diarrhea with Metformin. Pt got s/e from Metoprolol, Chantix, Meloxicam. Pt's insurance did not approve Wellbutrin. HM: Colonoscopy - 4 yrs ago, normal as per pt. Cont f/u with GI as per schedule. Flu - 03/02. Tdap, Pneumo, Shingrix - At [facility]. F/u in few weeks as directed. Annual labs in 07/02. [email or web address] Not available 07/29/2022 13:03:34 Plan of Treatment Reminders Order Date Submit Date Provider Last Modified By Organization Details Last Modified Time Details Appointments None recorded. Lab None recorded. Referral pain management referral - *Please call patient to schedule* 2022 023 [email or web address] Fannie Lawrence MD, [address] [facility], [address], [place], [address], 08:05:16 Procedures None recorded. Surgeries None recorded. Imaging None recorded. Medication Orders losartan 25 mg tablet 2022 023 [facility]/Pharmacy #[id number], [address] [place], [address], 3 12:08:11 Jardiance 10 mg tablet 2022 023 [facility]/Pharmacy #2510, [address] [place], [address], 3 12:08:10 losartan 25 mg tablet 2022 023 [facility]/Pharmacy #2510, [address] [place], [address], 3 16:33:48 Jardiance 10 mg tablet 2022 023 [facility]/Pharmacy #2510, [address] [place], [address], 3 16:33:48 Patient TargetsNo targets recorded. Patient [...] negative yuri/ l) Negati ve Not Available [facility] [address] [place] [address], [address], 11/18/2021 09:56:34 11/19/19 22 11/18/2021 urina lysis , dipst ick Nitrite (reference rage: negative mg/dl) negati ve Not Available [facility] [address] [place] [address], [address], 11/18/2021 09:56:34 11/19/19 22 11/18/2021 urina lysis , dipst ick Urobilinogen (reference range: 0.2-1 mg/dl) 0.2 Not Available [facility], [address], 11/18/2021 09:56:34 11/19/19 22 11/18/2021 urina lysis , dipst ick Protein (reference range: negative mg/dl) Negati ve Not Available [address], [address], 11/18/2021 09:56:34 11/19/19 22 11/18/2021 urina lysis , dipst ick pH (reference range: 5-7) 5.0 Not Available [facility], [address], 11/18/2021 09:56:34 11/19/19 22 11/18/2021 urina lysis , dipst ick Blood (reference range: negative Butch/ l) Negati ve Not Available [address], [address], 11/18/2021 09:56:34 11/19/19 22 11/18/2021 urina lysis , dipst ick Specific [place] (reference range: 1.005-1.030) 1.005 Not Available [facility] [address] [place], [address], 11/18/2021 09:56:34 11/19/19 22 11/18/2021 urina lysis , dipst ick Ketone (reference range: negative mg/dl) Negati ve Not Available [facility] [address] [place] [address], [address], 11/18/2021 09:56:34 11/19/19 22 11/18/2021 urina lysis , dipst ick Bilirubin (reference range: negative mg/dl) Negati ve Not Available [address], [address], 11/18/2021 09:56:34 11/19/19 22 11/18/2021 urina lysis , dipst ick Glucose (reference range: negative mg/dl) Negati ve Not Available [facility] [address] [place] [address], [address], 11/18/2021 09:56:34 11/19/19 22 11/18/2021 urina lysis , dipst ick Appearance Clear Not Available [facility] [address] [place] [address], [address], 11/18/2021 09:56:34 11/19/19 22 11/18/2021 urina lysis , dipst ick Color Pale Yellow Not Available [facility] [address] [place] [address], [address], 11/18/2021 09:56:34 12/04/19 22 12/03/2021 XR, skull , 4 or more view [facility] [address] [place] [address] [phone] David wong Name: QUOC RAUSCH ion #: [id number] Sex: M : 1965 4 Locati [...] prove benefi cial. Page 1 of 2 [facility] David wong Name: QUOC RAUSCH Access ion #: [id number] Sex: M : 1965 4 Exam Date: 8:58 AM Exam Name: XR SKULL 4V+ Admitt ing Diagno sis(es ): Create d and electr onical ly signed by: Elmer rodriguez MD Signed Date: 10:10 AM (CT) Dictat ed by: Elmer rodriguez MD DD: 10:10 AM (CT) DT: 10:10 AM (CT) Page 2 of 2 [id number] [facility] (Imaging) [address] [place], [address], 06/10/2022 02:34:18 02/28/20 22 02/26/2022 US, thyro id No observ ation record ed. [id number] [facility] Central Scheduling [address] [place], [address], 06/10/2022 02:34:18 05/30/19 23 05/30/2022 CT, abdom en + pelvi s, w/ contr ast No observ ation record ed. [email or web address] [place] [address], [place], [address], 06/11/2022 16:15:41 05/30/19 23 05/30/2022 XR, chest No observ ation record ed. [email or web address] [facility] [address] [facility] [address], [place], [address], 06/11/2022 16:15:41 Result Notes None recorded. Problems Name Problem SNOMED Code Status Onset Date Resolution Date Notes Provider Name and Address Organization Details Recorded Time Bleeding from nose 752417815 Active 2019 Not Available [facility] 3 02:29:49 Gastroeso phageal reflux disease without esophagit is 745015748 Active 2019 Not Available [facility] 3 02:29:49 Hypertens adela disorder 13989490 Active 2019 Not Available [facility] 3 02:29:51 Smoker 80973934 Active 2019 Not Available [facility] 3 02:29:53 Bilateral knee pain Active 2019 Not Available [facility] 3 02:29:47 Bilateral heel pain 33886971296 606176 Active 2019 Not Available [facility] 3 02:29:48 Overweigh t 794132196 Active 2019 Not Available [facility] 3 02:29:49 Pain of right thigh 70544086217 9107 Active 2019 Not Available [facility] 3 02:29:51 Bilateral bone spur of calcaneum 16171566087 571191 Active 2019 Not Available [facility] 3 02:29:48 Hyperbili rubinemia 80312928 Active 2019 Not Available [facility] 3 02:29:47 Uncontrol led type 2 diabetes mellitus 608115610 Completed 201903/20/2020 Not Available [facility] 3 02:29:52 Liver enzymes level above reference range 268950404 Active 2019 Not Available [facility] 3 02:29:52 Seasonal allergic rhinitis 757683925 Active 2019 Not Available [facility] 3 02:29:51 Diabetic periphera l neuropath y 282531157 Active 2019 Not Available [facility] 3 02:29:51 Type 2 diabetes mellitus without complicat ion 865593914 Active 2019 Not Available [facility] 3 02:29:50 Seasonal allergic conjuncti vitis 980381649 Completed 201907/02/2020 Not Available [facility] 3 02:29:49 Chronic neck pain 71890567359 07 Active 2019 Not Available [facility] 3 02:29:47 Seasonal allergic conjuncti vitis 119596810 Active 2019 Not Available [facility] 3 02:29:48 Rib pain 146855674 Active 2019 Not Available [facility] 3 02:29:50 Hyperprot einemia 45563991 Active 2019 Not Available [facility] 3 02:29:51 Bilateral plantar fasciitis 32979139586 825898 Active 2019 Not Available [facility] 3 02:29:47 Pain in bilateral feet 01745247785 581739 Active 2019 Not Available [facility] 3 02:29:48 Ear problem 716346232 Completed 201907/02/2020 Not Available [facility] 3 02:29:50 Diabetes mellitus 78149164 Active 2019 Not Available [facility] 3 02:29:52 Abdominal pain 42763978 Active 2019 Not Available [facility] 3 02:29:48 Dry skin 03899479 Active 2020 Not Available [facility] 3 02:29:48 Anxiety disorder 072662028 Active 2020 Not Available [facility] 3 02:29:48 Allergic rhinitis 21977547 Active 2020 Not Available [facility] 3 02:29:52 Thrombocy topenic disorder 142412829 Active 2020 Not Available [facility] 3 02:29:50 Burn of foot 12473667 Active 2020 Not Available [facility] 3 02:29:47 Chronic low back pain 396729127 Active 2020 Not Available [facility] 3 02:29:50 Kidney stone 15745937 Active 2020 Not Available [facility] 3 02:29:53 Degenerat ion of lumbar intervert ebral disc 73152114 Active 2020 Not Available [facility] 3 02:29:49 Pain in right foot 56276020862 9107 Active 2020 Not Available [facility] 3 02:29:50 Spinal stenosis of lumbar region 25770541 Active 2020 Not Available [facility] 3 02:29:48 Lumbar spondylos is 155597828 Active 2020 Not Available [facility] 3 02:29:49 Open wound of left lower leg 10508349522 956758 Active 2020 Not Available [facility] 3 02:29:47 Fall Active 2021 Not Available [facility] 3 02:29:48 Abrasion of skin of lower limb 393936770 Active 2021 Not Available [facility] 3 02:29:50 Pain of bilateral knee joints 42233228247 4104 Active 2021 Not Available [facility] 3 02:29:52 Bronchiti s 97288053 Active 2021 Not Available [facility] 3 02:29:51 Adult health examinati on Active 2021 Not Available [facility] 3 02:29:49 Screening for disorder Active 2021 Not Available [facility] 3 02:29:50 Posterior rhinorrhe a 77528267 Active 2021 Not Available [facility] 3 02:29:52 Chondroma lacia of right patella 08940276464 105750 Active 2021 Not Available [facility] 3 02:29:48 Sore throat 313575872 Active 2021 Not Available [facility] 3 02:29:49 Scalp folliculi tis 667623057 Active 2021 Not Available [facility] 3 02:29:49 Dysuria 29294629 Active 2021 Not Available [facility] 3 02:29:52 Skin lesion 10498424 Active 2021 Not Available [facility] 3 02:29:53 Folliculi tis 00356747 Active 2021 Not Available [facility] 3 02:29:47 Tremor 30597106 Active 2021 Not Available [facility] 3 02:29:49 Sinusitis 61234047 Active 2021 Not Available [facility] 3 02:29:51 Strain of abdominal muscle 066988048 Active 2022 Girish Freeman MD [address] [place] [address], [address] , [facility] 3 16:19:48 Notes:back and neck problems Problem Notes None recorded. Medical Equipment None Reported. Allergies Allergen ID Allergen Name Allergen Category Reaction Reaction Severity Criticality Documentation Date Start Date Code Code System Note Provider Name and Address Organization Details Recorded Time 3192 metoprolo l Not available headache moderate Not available 06/10/2022 6918 RxNorm Not Available [facility] 3 02:33:59 3193 metformin medicatio n diarrhea severe Not available 06/10/2022 6809 RxNorm Not Available [facility] 3 02:33:59 3194 meloxicam medicatio n chest pain Not available Not available 06/10/2022 61399 RxNorm Not Available [facility] 3 02:33:59 3195 Advil medicatio n Not available Not available Not available 06/10/2022 73705 0 RxNorm Not Available [facility] 3 02:33:59 3196 Product containin g angiotens in-conver ting enzyme inhibitor (product) medicatio n cough severe Not available 06/10/2022 25825 009 SNOMED Not Available [facility] 3 02:33:59 3197 Chantix medicatio n confusion severe Not available 06/10/2022 86147 0 RxNorm Not Available [facility] 3 02:33:59 Medications Name Sig Start Date [...] LAYER TO ENTIRE BURN AREAS BY TOPICALRO MUCKLESHOOT 2 TIMES PER DAY 06/23 completed Not [...] administe red by the provider 09/18 completed [facility]: [id number] [phone] Not Available Not Available [...] temperature Respiratory rate Heart rate Oxygen saturation Systolic And Diastolic Provider Name and Address Organization Details Last Updated DateTime 3 193.04 cm 26 kg/m2 60967.7 7 g 97.7 [degF] 16 /min 80 /min 98 % 132/64 mm[Hg] Payal Jordan RN [facility] 3 16:11:30 Date Recorded Systolic And Diastolic Provider Name and Address Organization Details Last Updated DateTime 07/29/2022 153/87 mm[Hg] Sarita Ray [address] [place] [address], [facility] [address], [place], [address], [facility] 07/29/2022 11:59:55 Date Recorded Body height Body mass index (BMI) Body weight Body temperature Heart rate Oxygen saturation Provider Name and Address Organization Details Last Updated DateTime 3 193.04 cm 24.8 kg/m2 29701.4 1 g 98.2 [degF] 85 /min 98 % Samaria Powell MA [place] The Local [facility] 3 11:58:34 Date Recorded Body mass index (BMI) Body height Oxygen saturation Heart rate Respiratory rate Body temperature Body weight Systolic And Diastolic Provider Name and Address Organization Details Last Updated DateTime 2 25.7 kg/m2 193.04 cm 98 % 68 /min 16 /min 98.3 [degF] 50742.9 9 g 136/80 mm[Hg] Not Available [facility] 3 02:28:34 Date Recorded Body mass index (BMI) Body height Oxygen saturation Heart rate Body temperature Body weight Systolic And Diastolic Provider Name and Address Organization Details Last Updated DateTime 2 25.9 kg/m2 193.04 cm 98 % 86 /min 98.3 [degF] 77507.1 7 g 138/88 mm[Hg] Not Available [facility] 3 02:28:34 Date Recorded Body mass index (BMI) Body height Oxygen saturation Heart rate Respiratory rate Body temperature Body weight Systolic And Diastolic Provider Name and Address Organization Details Last Updated DateTime 2 25.7 kg/m2 193.04 cm 98 % 80 /min 16 /min 98.4 [degF] 53409.9 9 g 134/80 mm[Hg] Not Available [facility] 3 02:28:34 Social History Question Answer Notes LastModified by True Pivotat ion Details LastModified Time Tobacco Smoking Status Current Every Day Smoker Not Available [facility] 06/10/2022 02:25:32 Do You Have An Advance Directive? No MIGRATION.31525 [id number] Information not available 06/10/2022 Do You Wear A Helmet When Biking? No MIGRATION.21594 63602 Information not available 06/10/2022 What Is Your Level Of Caffeine Consumption? Heavy MIGRATION.75412 82511 Information not available 06/10/2022 In The 14 Days Before Symptom Onset, Have You Had Close Contact With A Laboratory-confi rmed COVID-19 While That Case Was Ill? No MIGRATION.07751 96229 Information not available 06/10/2022 In The 14 Days Before Symptom Onset, Have You Had Close Contact With A Person Who Is Under Investigation For COVID-19 While That Person Was Ill? No MIGRATION.85881 43795 Information not available 06/10/2022 Have There Been Any Changes To Your Family Or Social Situation? No MIGRATION.54975 43753 Information not available 06/10/2022 Are There Any Guns Present In Your Home? No MIGRATION.98092 19771 Information not available 06/10/2022 Do You Use Insect Repellent Routinely? No MIGRATION.25774 32654 Information not available 06/10/2022 Where Do You Live? [place] MIGRATION.72479 15333 Information not available 06/10/2022 Do You Have A Medical Power Of Gasoline Power Shovel Operator? No MIGRATION.28683 58649 Information not available 06/10/2022 Do You Have Any Pets? No MIGRATION.55041 55182 Information not available 06/10/2022 What Is Your Relationship Status? Single MIGRATION.23459 25062 Information not available 06/10/2022 Do You Use Your Seat Belt Or Car Seat Routinely? Yes MIGRATION.49055 42041 Information not available 06/10/2022 Do You Have Smoke And Carbon Monoxide Detectors In Your Home? Yes MIGRATION.34420 76448 Information not available 06/10/2022 Are You Passively Exposed To Smoke? Yes MIGRATION.44282 56596 Information not available 06/10/2022 Are There Any Smokers In Your House? Yes MIGRATION.91160 69888 Information not available 06/10/2022 How Much Tobacco Do You Smoke? 1 PPD MIGRATION.07413 01041 Information not available 06/10/2022 Do You Participate In Social Media? No MIGRATION.36966 82130 Information not available 06/10/2022 Do You Use Sunscreen Routinely? No MIGRATION.28541 42568 Information not available 06/10/2022 Has Tobacco Cessation Counseling Been Provided? No MIGRATION.27645 90219 Information not available 06/10/2022 Have You Recently Traveled Abroad? No MIGRATION.27220 05608 Information not available 06/10/2022 Are You Currently In School? No MIGRATION.68501 67779 Information not available 06/10/2022 Sex: Male Functional Status Question Answer Note LastModified by PRUSLAND SL Details LastModified Time Do you use any illicit or recreational drugs? No MIGRATION.[id number] 26 Information not available 06/10/2022 Do you or have you ever used any other forms of tobacco or nicotine? No MIGRATION.78957238 26 Information not available 06/10/2022 What is your level of alcohol consumption? None MIGRATION.85512741 26 Information not available 06/10/2022 Mental Status Question Answer Note LastModified by PRUSLAND SL Details LastModified Time Do you feel stressed (tense, restless, nervous, or anxious, or unable to sleep at night)? [id number] MIGRATION.[id number] 6 Information not available 06/10/2022 Family History Relationship Description Onset Age of this Age Resolved Age Notes LastModified by Organization Details LastModified Time Mother Diabetes mellitus MIGRATION.570 [id number] Not available 06/10/2022 02:27:24 Maternal Grandmother Diabetes mellitus MIGRATION.991 [id number] Not available 06/10/2022 02:27:24 Maternal Aunt Diabetes mellitus MIGRATION.715 [id number] Not available 06/10/2022 02:27:24 Father Cerebrovascu lar accident MIGRATION.811 [id number] Not available 06/10/2022 02:27:24 Medical History Condition Response SLEEP APNEA N MRSA N ALLERGIES/HAYFEVER N LUNG DISEASE/DISORDER N HISTORY OF DRUG ABUSE N INSOMNIA N COPD N RADIATION / CHEMOTHERAPY N HIGH CHOLESTEROL / HYPERLIPIDEMIA N HYPERTHYROIDISM N BLOOD DISEASES N EAR OR HEARING PROBLEMS N HYPOTHYROIDISM N SHINGLES N DEPRESSION (INCLUDING POST ) N HAVE YOU BEEN HOSPITALIZED OR SEEN IN [facility] ER IN THE PAST YEAR ? N STROKE/TIA N ULCERS N OBESITY N ANEURYSM N HISTORY WITH COMPLICATIONS WITH ANESTHES IA ? N NO SIGNIFICANT PAST MEDICAL HISTORY N USE OF BLOOD THINNERS N DIABETES, TYPE N PARATHYROID DISEASE N ENT N SEASONAL ALLERGIES N HEARTBURN / REFLUX N HEPATITIS / LIVER DISEASE N SLEEP DISORDER N SEIZURES/EPILEPSY N HEADACHES/MIGRAINES N CHF N PACEMAKER N DIZZINESS N HEART DISEASE/HEART PROBLEMS N AIDS/HIV N FRACTURES N HYPERTENSION N CANCER: SPECIFY N TOURETTE'S N BLOOD TRANSFUSION N ANESTHESIA COMPLICATIONS N ANEMIA/BLOOD DISORDER N CHRONIC EAR INFECTIONS N TUBERCULOSIS N Immunizations Vaccine Type Date Status Note Provider Nam e and Address Organization Details Recorded Time Influenza, split virus, quadrivalent, PF 1 completed Not Available [facility] 06/10/2022 02:33:53 COVID-19, mRNA, LNP-S, PF, 30 mcg/0.3 mL dose 2 completed Not Available [facility] 06/10/2022 02:33:53 SARS-COV-2 (COVID-19) vaccine, UNSPECIFIED 1 completed Not Available [facility] 06/10/2022 02:33:53 SARS-COV-2 (COVID-19) vaccine, UNSPECIFIED 1 completed Not Available [facility] 06/10/2022 02:33:53 Past Encounters Encounter ID Performer Location Encounter Start Date Encounter Closed Date Diagnosis/Indication Diagnosis SNOMED-CT Code Diagnosis ICD10 Code Diagnosis IMO Codes Diagnosis Note [id number] Girish Freeman MD [address] [address] 06/17/2020 00:00:00 06/17/2020 16:51:09 [id number] Girish Freeman MD [address] [address] 06/24/2020 00:00:00 06/24/2020 10:48:46 [id number] RONAK VickATHENA_M IGRATION_ DEFAULT_1 _1 , 07/01/2020 00:00:00 07/02/2020 10:22:13 [id number] Girish Freeman MD [address] [address] 07/02/2020 00:00:00 07/02/2020 10:58:49 [id number] RONAK VickATHENA_M IGRATION_ DEFAULT_1 _1 , 07/22/2020 00:00:00 07/22/2020 14:43:07 [id number] RONAK VickATHENA_M IGRATION_ DEFAULT_1 _1 , 08/05/2020 00:00:00 08/05/2020 12:47:06 [id number] RONAK VickATHENA_M IGRATION_ DEFAULT_1 _1 , 08/19/2020 00:00:00 08/19/2020 15:08:28 [id number] Girish Freeman MD [address] [address] 09/16/2020 00:00:00 09/16/2020 12:43:52 [id number] RONAK VickATHENA_M IGRATION_ DEFAULT_1 _1 , 09/30/2020 00:00:00 10/01/2020 09:52:37 [id number] RONAK VickATHENA_M IGRATION_ DEFAULT_1 _1 , 10/28/2020 00:00:00 10/28/2020 20:44:50 [id number] Girish Freeman MD [facility] [address] [place] [id number] 10/29/2020 00:00:00 10/29/2020 12:55:55 [id number] Girish Freeman MD [facility] [address] [place] [id number] 11/13/2020 00:00:00 11/13/2020 12:05:45 [id number] RONAK Vick IGRATION_ DEFAULT_1 _1 , 11/18/2020 00:00:00 11/19/2020 09:34:51 [id number] Girish Freeman MD [facility] [address] [place] [id number] 1 12/11/2020 00:00:00 12/11/2020 15:28:04 [id number] Girish Freeman MD [facility] [address] [place] [id number] 12/23/2020 00:00:00 12/23/2020 11:20:35 [id number] Girish Freeman MD [facility] [address] [place] [address] 1 01/01/2021 00:00:00 01/01/2021 11:42:58 [id number] Girish Freeman MD [facility] [address] [place] [id number] 1 01/14/2021 00:00:00 01/14/2021 12:32:26 [id number] RONAK Vick IGRATION_ DEFAULT_1 _1 , 01/20/2021 00:00:00 01/21/2021 09:48:35 [id number] [facility] [place] [address] [place] [address] 02/03/2021 00:00:00 02/03/2021 13:26:11 [id number] Girish Freeman MD [facility] [address] [place] [address] 03/13/2021 00:00:00 03/13/2021 11:48:17 [id number] Isai Gonzaleskeman, DPM _ATHENA_M IGRATION_ DEFAULT_1 _1 , 03/24/2021 00:00:00 03/24/2021 16:32:35 [id number] [facility] [place] [address] [place] [address] 03/26/2021 00:00:00 03/26/2021 13:12:34 [id number] Girish Freeman MD [facility] [address] [place] [address] 05/29/2021 00:00:00 05/29/2021 11:05:29 [id number] Girish Freeman MD [facility] [address] [place] [phone] 1 06/10/2021 00:00:00 06/10/2021 15:16:30 [id number] Girish Freeman MD [facility] [address] [place] [address]31-547 1 06/18/2021 00:00:00 06/18/2021 14:53:46 [id number] Girish Freeman MD [facility] [address] [place] [address] [phone] 1 06/23/2021 00:00:00 06/24/2021 14:45:04 [id number] Girish Freeman MD [facility] [address] [place] [address] 67465-405 1 07/17/2021 00:00:00 07/17/2021 12:37:13 [id number] Jordin Moncada MD [facility] [place] [address] [place] [address] 07/29/2021 00:00:00 07/29/2021 15:07:59 [id number] Jordin Moncada MD [facility] [place] [address] [facility] [address] [place] [address] 08/07/2021 00:00:00 08/07/2021 11:50:40 [id number] Girish Freeman MD [facility] [place] [address] [place] [address] 09/18/2021 00:00:00 09/18/2021 12:20:11 [id number] Girish Freeman MD [facility] [place] [address] [place] [address] 10/02/2021 00:00:00 10/02/2021 16:50:35 [id number] Girish Freeman MD [facility] [address] [place] [address] 10/27/2021 00:00:00 10/27/2021 14:02:20 [id number] Girish Freeman MD [facility] [address] [place] [address] 11/18/2021 00:00:00 11/18/2021 10:12:10 [id number] Girish Freeman MD [facility] [place] [address] [place] [address] 12/18/2021 00:00:00 12/18/2021 16:29:07 [id number] Girish Freeman MD [facility] [place] [address] [place] [address] 02/02/2022 00:00:00 02/02/2022 14:13:32 [id number] Girish Freeman MD [facility] [place] [address] [place] [address] 03/02/2022 00:00:00 03/02/2022 17:20:45 [id number] Girish Freeman MD [address] [address] 06/11/2022 16:03:28 06/11/2022 16:41:51 Seen in emergency clinic [id number] Z76.89 Strain of abdominal muscle [id number] S39.011D Chronic low back pain 27 4254745 M54.50 Anxiety disorder 4311008 06 F41.9 Hypertensive disorder 38 329423 I10 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 [id number] E11.9 Lumbar spondylosis 54865 0009 M47.896 [id number] Girish Freeman MD [facility] [address] [place] [address] 1 07/29/2022 11:43:58 07/29/2022 12:15:45 Chronic low back pain [id number] M54.50 Anxiety disorder 9288847 06 F41.9 Hypertensive disorder 38 574433 I10 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 040253731 E11.9 Lumbar spondylosis 12715 0009 M47.896 Smoker 77882182 F17.200 Seasonal a llergic rhinitis 831712377 J30.2 Hyperbilirubinemia 72837 006 E80.6 Health Concerns Section Related Observation LastModified by Organization Detai ls LastModified Time None Recorded Concern Status LastModified by Organization Details LastModified Time None Recorded Advance Directives Directive N: Payers Insurance Date Sequence Insurance Name Policy Number Policy Stubbs Covered Member ID Stubbs Member ID Guarantor Name 08/16/2022 1 [facility] ON OR AFTER 10/10/20 (MEDICAID REPLACEMENT - HMO) Quoc Stafford [id number] Quoc Stafford Notes Date Note Type Note [...] Pt has seen another spine doctor at [place] for his chronic neck and back pain and he has recommended surgery or laser ablation for him and pt still wants to wait and talk with his Pain specialist about this.Pt doesn't want to see another pain clinic at [facility] and he is continuing with Pain clinic at [facility] for his chronic pain concerns.Pt has seen environmental management specialist at [facility] and he has recommended pt to go for Radiofrequency ablation and he has recommended another specialist at [facility] for him. Pt has info about them.C/o chronic neck pain and pt is f/u with Pain clinic at [place] and he advised pt to ask his [...] mood problems/depression/ mood swings/SI/HI.Pt is f/u with [facility] for his chronic b/l feet pain.Pt has cut down smoking to now 0.5 ppd. Pt's insurance did not approve Wellbutrin. Girish Freeman MD [address] [place] [address], [facility] [address], [place], [address], [place] - [employer] Hua Kang 06/11/2022 16:34:28 07/29/2022 text/html ACV: Pt has [...] wants to see another pain specialist at [place] for his chronic back pain concerns. Pt wants to do his next annual labs in 09/01. Pt has seen another spine doctor at [place] for his chronic neck and back pain and he has recommended surgery or laser ablation for him and pt still wants to wait and talk with his Pain specialist about this.Pt doesn't want to see another pain clinic at [facility] and he is continuing with Pain clinic at [facility] for his chronic pain concerns.Pt has seen environmental management specialist at [facility] and he has recommended pt to go for Radiofrequency ablation and he has recommended another specialist at [facility] for him. Pt has info about them.C/o chronic neck pain and pt is f/u with Pain clinic at [place] and he advised pt to ask his [...] mood problems/depression/ mood swings/SI/HI.Pt is f/u with [facility] for his chronic b/l feet pain.Pt has cut down smoking to now 0.5 ppd. Pt's insurance did not approve Wellbutrin. Girish Freeman MD [address] [place] [address], [facility] [address], [place], [address], [place] [employer] 07/29/2022 13:04:33
--- OUTSIDE RECORDS SUMMARY | 2025-03-20 06:52 | XMS_ITS | Clinical Summary ---
Author Organization [facility] Address [address] [place] [address] Care Team Providers Care Supervisor [place] Name Role Phone Girish Freeman MD Unavailable [phone] Franky Pritchard MD Unavailable [phone] Franky Pritchard MD Unavailable [phone] Arie Rodrigues MD Primary Care Provider [phone] Allergies Active Allergy Reactions Criticality Noted Date [...] % cream every 12 hours Activ e Beam Express Ultra Blue Test Strip strip USE TO [...] Site/Laterality Comments COLONOSCOPY 04/12/2015 - 04/11/2016 [facility] Medical History Medical History Date Comments Diabetes mellitus DJD (degenerative joint disease) 03/24/2020 Mucopurulent chronic [...] on file Legal Sex Male 9:22 PM [employer] Gender Identity Male 03/15/2020 1:20 PM [employer] Sexual Orientation Not on file Last Filed [...] 12/28/1986 Zoster Vaccine (1 of 2) 12/28/2017 Covid-19 Vaccine (2024-2 6 season) 2024 10/03/2021, 10/03/2021, 09/17/2021, Additional history exists Influenza Vaccine (#1) 2024 02/14/2021, 2019 Hemoglobin A1C 05/26/2025 11/23/2024, 01/11, 12/16/2021, Additional history exists Colon Cancer Screening-Colonoscopy 06/04/20252015, 06/04/2015 Albumin Creatinine Ratio, Urine 11/23/2025 , 06/19/2021 Lipid Panel 11/23/2025 11/23/2024, 06/19/2021 eGFR 11/23/2025 11/23/2024, 11/0 05/2023, 05/26/2022, Additional history exists Prostate Cancer Screening-PSA 11/23/2026, 06/19/2021, 12/04/2020 DTaP/Tdap/Td Vaccine (2 - Td or Tdap) 06/06/2031 06/06/2021 Hepatitis C Screening Completed 05/15/2015 Procedures Procedure Name Priority Date/Time Associated Diagnosis Comments EGFR Routine 11/23/2024 7:34 AM CDT HEMOGLOBIN A1C Routine 11/23/2024 7:34 AM CDT LIPID PANEL Routine 11/23/2024 7:34 AM CDT ALBUMIN CREATININE RATIO, URINE Routine 11/23/2024 7:34 AM CDT PSA SCREEN Routine 11/23/2024 7:34 AM CDT COLONOSCOPY IMAGES 06/04/2015 SERUM HEPATITIS PANEL Routine 05/15/2015 1:40 PM [employer] from Last 3 Months or Most Recently Relevant to Health Maintenance Results * eGFR (11/23/2024 7:34 AM CDT) eGFR >90 >=60 mL/min/1. 73 [...] Current interpretive data was last reviewed 2021. Testing performed by: [address] [address] Blood 11/23/2024 7:34 AM CDT 11/23/2024 8:44 AM CDT Janie Sol [employer] LAB BLOOD ORDERABLES Risa l Result Performing Organization Address [facility] Co de Phone Number [address] [place] [address] * PSA screen (11/23/2024 7:34 AM CDT) PSA-Total 1.19 <=3.90 ng/mL Comment: Interpretive Data AGE SEX REFERENCE INTERVAL 0 minutes-150 years Female None 0 minutes-49 years Male None 50-59 years Male 0-3.90 60-69 years Male 0-5.40 70-79 years Male 0-6.20 80-150 years Male 0-6.20 The Michael PSA Total assay procedure was used. Results from different manufacturers or methods may not be comparable. Serial testing should be performed using the same method. Current interpretive data last revised 21. Testing performed by: [address] [address] Blood 11/23/2024 7:34 AM CDT 11/23/2024 8:44 AM CDT Janie Sol [employer] LAB BLOOD ORDERABLES Risa l Result Performing Organization Address [facility] Co de Phone Number [address] [place] [address] * Albumin Creatinine Ratio, Urine (11/23/2024 7:34 AM CDT) Albumin Ur <12.0 mg/L Comment: Interpretive Data No reference range established. Current interpretive data was last revised 2018. Testing performed by: [address] [address] Creatinine Ur 92.8 mg/dL BAKARI Comment: Interpretive Data No reference range established. Current interpretive data was last revised 2018. Testing performed by: [address] [address] Albumin Creatinine Ratio, Ur <13 1 - 29 mg/g BAKARI Comment:Testing performed by : [address] [address] Urine 11/23/2024 7:34 AM CDT 11/23/2024 8:42 AM CDT Janie Sol [employer] LAB URINE ORDERABLES Risa l Result Performing Organization Address [facility] Co de Phone Number [facility] [address] [facility] Department [place] [address] * (ABNORMAL) Hemoglobin A1c (11/23/2024 7:34 AM CDT) [facility] Hgb A1C 5.8(H) 4.0 - 5.6 % Comment:Testing performed by : [address] [address] Estimated Average Glucose 120 mg/dL BAKARI Comment: The ADA recommends reporting an estimated Average Glucose (eAG) with all Hemoglobin A1c results using the equation derived from a study of 507 normal and diabetic adults. Minority populations were underrepresented and children were not included. (Diabetes Care 31:5037-3548, 2008). The eAG is not equivalent to a fasting glucose. Testing performed by: [address] [address] Blood 11/23/2024 7:34 AM CDT 11/23/2024 8:44 AM CDT Janie Sol [employer] LAB BLOOD ORDERABLES Risa l Result Performing Organization Address [facility] Co de Phone Number [facility] [address] [facility] Department [place] [address] * Lipid panel (11/23/2024 7:34 AM CDT) [facility] Cholesterol 109 30 - 199 mg/dL Comment: Interpretive Data Ages < or = [...] last revised on 2017. Testing performed by: [address] [address] Triglycerides 52 <=149 mg/dL BAKARI Comment: Interpretive Data Ages [...] last revised on 2017. Testing performed by: [address] [address] HDL 76 >=40 mg/dL BAKARI Comment: Interpretive Data Ages [...] last revised on 2017. Testing performed by: [address] [address] LDL, calculated 21 <=129 mg/dL BAKARI [place] Comment: Interpretive Data Ages < or = 19 years Acceptable: <110 mg/dL Borderline high: 110-129 mg/dL High: >or= 130 mg/dL Ages > or = 20 years Optimal: <100 mg/dL Near optimal: 100-129 mg/dL Borderline high: 130-159 mg/dL High: >160 mg/dL Calculated using the Azeem LDL-C estimating equation. This equation was implemented on 2023. Prior to this date LDL-C was estimated using the Friedewald equation. Literature References: 1. Expert Panel on Integrated Guidelines for Cardiovascular Health and Risk Reduction in Children and Adolescents. Pediatrics 2011;128:S213 2. NCEP Expert Panel. Circulation 2004;110:227 3. Azeem Stein et al. GASPER Cardiol. 2019August 10;5(5):540-548. doi: 10.1001/jamacardio.2020.0013 Current Interpretive Data was last revised on 2023. Testing performed by: [address] [address] Non-HDL Cholesterol 33 mg/dL BAKARI [place] Comment: Interpretive Data Ages [...] last revised on 2017. Testing performed by: [address] [address] Chol/HDL ratio 1 BAKARI Comment:Testing performed by : [address] [address] Blood 11/23/2024 7:34 AM CDT 11/23/2024 8:44 AM CDT Janie Sol NP LAB BLOOD ORDERABLES Risa zacarias Result BAKARI [address] [facility] Department [place] [address] * COLONOSCOPY IMAGES (06/04/2015) Anatomical Region Laterality Modality Other Narrative 06/04/2015 Ordered by an unspecified provider. Historical Provider GI PROCEDURE ORDERABLES F inal Result * Serum Hepatitis panel (05/15/2015 1:40 PM [employer]) HBV surface ag Negative NEG HISTO RICAL RESULTS HCV ab Negative NEG HISTORICAL RESULTS Comment: Interpretive Data If confirmation is required, call Laboratory Customer Service to request sample to be sent to [facility] for Hepatitis C Virus (HCV) RNA Detection and Quantitation by Real-Time Reverse Director Of Professional Services-PCR (RT-PCR). Current interpretive data was last revised [...] revised on 2007. Serum 05/15/2015 1:40 PM [employer] us Darrell Varghese MD LAB BLOOD ORDERABLES Final Resul t HISTORICAL RESULTS from Last 3 Months or Most Recently Relevant to Health Maintenance Insurance [facility] Care Teams Supervisor [place] Relationship Specialty Start Date End Date Arie Rodrigues MD [address] [place] [address] [place] [address] PCP - General Family Medicine 02/12/24 Girish Freeman MD [address] [place] [address] [place] [address] Family Medicine 03/15/20 Franky Pritchard MD [address] [facility] [place] [address] Consulting Physician Hematology and Oncology 07/19/20 Franky Pritchard MD [address] [place] [address] Medical Oncologist/Hematologis t Hematology and Oncology 05/26/22
== END 2025-03-20 06:49 | disposition home or self-care (01) ==
PROVIDERS: PCP Family Medicine; Visit Provider Nurse Practitioner Family
DX: Z03.89 Encounter for observation for other suspected diseases and conditions ruled out (principal); K76.6 Portal hypertension; R16.1 Splenomegaly, not elsewhere classified; I85.10 Secondary esophageal varices without bleeding; K74.4 Secondary biliary cirrhosis
CPT/HCPCS: 93976